=== PATIENT | male | born 1950 | race Caucasian/White ===

== ENCOUNTER 2016-09-06 13:02 | Inpatient (IN) ==
[2016-09-06] MEDS ORDERED: DUONEB (A & A) INH ONE (14:01)
[2016-09-06] MEDS ORDERED: SOLU-MEDROL IV ONE (14:03)
[2016-09-06 14:13] LABS: MANUAL DIFF NEEDED? NO
[2016-09-06 14:22] LABS: BASO% 0.4 % (0.0-0.8); EOS# 0.11 X1000 (0.0-0.7); HEMATOCRIT 45.8 % (42.0-52.0); HEMOGLOBIN 13.9 g/dL (14.0-18.0); IMM GRAN# 0.18 X1000 (0.0-0.04); IMM GRAN% 1.7 % (0.0-0.5); LYMPH# 1.94 X1000 (1.2-3.4); LYMPH% 18.3 % (20.5-51.1); MCH 28.5 PG (27-31); MCHC 30.3 g/dL (33-37); MONO# 0.74 X1000 (0.11-0.59); MPV 9.5 FL (7.4-10.4); NEUT% 71.6 % (42.2-75.2); PLT 202 X1000 (130-400); RBC 4.87 XMIL (4.7-6.1)
[2016-09-06 14:22] LABS: ALLEN TEST YES; BE 12.1 mmoll (-3.0-3.0); BLOOD TYPE ARTERIAL; DRAW SITE R RADIAL; METHB 1.1 % (0.0-1.5); O2(CT) 17.6 mL/dL (15.0-23.0); PO2(98.6) 57 mmHg (60-100); SAMPLE BLOOD; SAO2 90.7 % (95.0-100.0); THB 14.4 g/dL (11.5-17.4)
[2016-09-06 14:30] LABS: PCO2(98.6) 135 mmHg (35-45); pH(98.6) 7.15 (7.35-7.45)
[2016-09-06 14:32] LABS: MODALITY VENTIMASK
[2016-09-06 14:37] LABS: URINE SOURCE CLEAN CATCH
[2016-09-06 14:38] LABS: AGAP 7; ALBUMIN 3.6 g/dL (3.5-5.0); ALKALINE PHOSPHATASE 69 U/L (32-122); BUN 12 mg/dL (8-22); CALCIUM 8.6 mg/dL (8.8-10.2); CHLORIDE 84 mmol/L (98-107); COSMO 263; GOT 23 U/L (10-34); GPT 20 U/L (10-44); POTASSIUM 4.9 mmol/L (3.5-5.1); SODIUM 130 mmol/L (136-145); TCO2 39 mmol/L (25-35); TOTAL BILIRUBIN 0.31 mg/dL (0.20-1.00); TOTAL PROTEIN 7.4 g/dL (6.3-8.3)
[2016-09-06 14:44] LABS: BILIRUBIN URINE NEGATIVE (NEGATIVE); BLOOD URINE NEGATIVE (NEGATIVE); COLOR YELLOW; GLUCOSE URINE NEGATIVE (NEGATIVE); LEUKOCYTES URINE MODERATE (NEGATIVE); NITRITE URINE POSITIVE (NEGATIVE); PH URINE 5.5; PROTEIN URINE TRACE mg/dL (NEGATIVE); SP GRAVITY URINE 1.023; TURBIDITY URINE HAZY (CLEAR); URINE MICRO REVIEW NEEDED? YES; UROBILINOGEN URINE NORMAL (NORMAL)
[2016-09-06 14:46] LABS: UR EPITHELIAL CELLS <10 /HPF (<10); URINE BACTERIA 4+ /HPF; URINE CULTURE NEEDED? YES; URINE RBC <10 /HPF (<10)
--- NOTE | 2016-09-06 14:48 | Diag Imaging Result Document ---
PROCEDURE NAME: CHEST-1 VIEW - 09/06/2016 PORTABLE CHEST: COMPARISON: Compared to 07/09/2014. FINDINGS: The heart is enlarged. There is vascular distention. There may be small effusions with basilar atelectasis or even underlying infiltrates. IMPRESSION: Cardiomegaly with pulmonary edema likely due to congestive failure.
[2016-09-06] MEDS ORDERED: LASIX IV ONE (14:50)
--- NOTE | 2016-09-06 14:57 | PROVIDER DOCUMENTATION ---
This chart was entered by Lupe Jones Scribe, acting as scribe for Ernie Venegas MD. HPI-Respiratory General - General Chief Complaint: Shortness of Breath Stated Complaint: LOW OXYGEN Time Seen by Provider: 09/06/16 13:55 Source: patient Allergies/Adverse Reactions: Patient Allergies Allergy/AdvReac Type Severity Reaction Status Date / Time No Known Allergies Allergy Verified 09/06/16 13:33 Home Medications: Home Medication List Medication Instructions Recorded Confirmed Last Taken Type Albuterol Sulfate [Proair Hfa] 8.5 gm IH DAILY 01/22/14 09/06/16 07/09/14 09:00 History Fluticasone 50 Mcg Nasal [place] 1 spray DERICK DAILY 01/22/14 09/06/16 07/09/14 09: 00 History [Flonase] Acetaminophen [Tylenol] 650 mg PO Q4H PRN PRN #0 tablet 02/10/14 09/06/16 Unknown Rx Albuterol [Albuterol Neb] 2.5 mg INH [id number] #0 neb 02/10/14 09/06/16 Unknown Rx Benzonatate [Tessalon] 100 mg PO TID PRN PRN #0 capsule 02/10/14 09/06/16 Unknown Rx Diltiazem HCl [Cardizem Cd] 120 mg PO DAILY #0 cap.er.24h 02/10/14 09/06/1603/15 09:00 Rx Docusate Sodium [Colace] 100 mg PO BID #0 capsule 02/10/14 09/06/16 07/09/14 09: 00 Rx Folic Acid 1 mg PO BID #0 tablet 02/10/14 09/06/16 07/09/14 09:00 Rx Furosemide [Lasix] 40 mg PO DAILY #0 tablet 02/10/14 09/06/16 07/09/14 09:00 Rx Hydrocodone/APAP 7.5 mg/325 mg 1 - 2 each PO Q6-8H PRN PRN #0 02/10/14 09/06/16 Unknown Rx [[place]-7.5] tablet Iron Carbonyl/Ascorbic Acid 1 each PO BID #0 tablet 02/10/14 09/06/16 07/09/14 09:00 Rx [Icar-C] LISINOpril [Prinivil] 5 mg PO DAILY #0 tablet 02/10/14 09/06/16 07/09/14 09:00 Rx Lactobacillus Rhamnosus GG 1 each PO BID #0 capsule 02/10/14 09/06/16 07/09/14 09:00 Rx [Culturelle] Menthol/Zinc Oxide Ointment 0 gm TOP PRN PRN #0 tube 02/10/14 09/06/16 Unknown Rx [Calmoseptine Ointment] Multivit,Fe,Ca,FA & Min [Thera M 1 each PO BID #0 tablet 02/10/14 09/06/1607/09 09:00 Rx Plus] Ondansetron [Zofran] 4 mg PO Q4H PRN PRN #0 tab 02/10/14 09/06/16 Unknown Rx Pantoprazole [Protonix] 40 mg PO DAILY #0 tab 02/10/14 09/06/16 07/09/14 09:00 Rx Potassium Chloride E.r. [Klor-Con] 40 meq PO QAM #0 tablet 02/10/14 09/06/1603/15 09:00 Rx Rivaroxaban [Xarelto] 20 mg PO DAILY #30 tablet 02/10/14 09/06/16 07/09/14 09: 00 Rx Spironolactone [Aldactone] 12.5 mg PO DAILY #0 tablet 02/10/14 09/06/16 09:00 Rx Sucralfate [Carafate] 1 gm PO Q6H #0 tablet 02/10/14 09/06/16 07/09/14 08:00 Rx Chlorhexidine Gluconate [Peridex] 15 ml MM BID 07/09/14 09/06/16 07/09/14 09:00 History Multivit,Fe,Ca,FA & Min [Thera M 1 each PO BID 07/09/14 09/06/16 07/09/14 09:00 History Plus] Ropinirole HCl [Requip] 0.5 mg PO QHS 07/09/14 09/06/16 07/08/14 02:00 History Trazodone [Desyrel] 50 mg PO QHS 07/09/14 09/06/16 07/08/14 21:00 History - History of Present Illness-Resp Nature of Presenting Problem: Pt is a 66 yom who came to the ED With a cc of SOB. Pt lives at the long-term when he complained about being sob. Pt O2 sat was 82%, pt reports he does not know how much he ways. Pt reports he weighs around 350-400lbs. Pt reports the EMS gave him a breathing treatment which helped him. Quality of Pain: reports: none Severity in ED: reports: mild Onset/Duration: reports: just prior to arrival Timing: reports: still present Cough Quality/Degree: reports: no cough Associated Symptoms: reports: shortness of breath, short of breath Similar Symptoms Previously?: No Recently seen or treated by another doctor?: No Review of Systems - Adult - REVIEW OF SYSTEMS - ADULT Constitutional: denies: chills, fever Eyes: reports: no symptoms reported Ears, Nose, Mouth & Throat: reports: no symptoms reported Cardiovascular: reports: no symptoms reported Respiratory: reports: shortness of breath. denies: chronic cough, hemoptysis, pleurisy Gastrointestinal: denies: diarrhea, nausea, vomiting Genitourinary: reports: no symptoms reported Musculoskeletal: reports: no symptoms reported Integumentary: reports: no symptoms reported Neurological: reports: no symptoms reported Psychiatric: reports: no symptoms reported Endocrine: reports: no symptoms reported Hematologic/Lymphatic: reports: no symptoms reported Allergic/Immunologic: reports: no symptoms reported All Other Systems: Reviewed and Negative Past History - Adult - PAST MEDICAL HISTORY-ADULT Review of Records: reports: Nursing Assessment Review Major Childhood Illnesses: reports: denies history Cardiovascular: reports: CHF, HTN Respiratory: reports: COPD Gastrointestinal: reports: cholelithiasis, GERD, other (food bolus, esoph spasms ) Obstetrical/Gynecological: reports: denies history Genitourinary: reports: denies history Musculoskeletal: reports: arthritis Neurological: reports: denies history Endocrine/Immune: reports: Diabetes Other Conditions: reports: denies history - PRIOR SURGERIES/PROCEDURES Surgical/Procedure History: reports: appendectomy, cholecystectomy, joint replacement (TKR) - IMMUNIZATION STATUS Childhood Immunizations: See Nurse Assessment Flu Vaccine: See Nurse Assessment - FAMILY HISTORY Family History: reviewed, not pertinent Physical Exam-General - PHYSICAL EXAM-ADULT Initial Vital Signs Reviewed: Yes - CONSTITUTIONAL General Appearance: appears well, alert, obese - EYES Eyes: PERRL/EOMI, pink conjunctivae - HEAD, EARS, NOSE, MOUTH & THROAT HENMT: normocephalic/atraumatic, moist mucous membranes. negative: TM abnormal , TM obscurred by cerumen - NECK Neck: non-tender, full range of motion. negative: C-spine tenderness, lymphadenopathy - RESPIRATORY Respiratory: chest non-tender, lungs clear. negative: prolonged expiration, pain on inspiration - CARDIOVASCULAR Cardiovascular: normal peripheral pulses, regular rate, rhythm - GASTROINTESTINAL (ABDOMEN) Abdominal Exam: normal bowel sounds, non tender - MUSCULOSKELETAL Back Exam: normal inspection, no CVA tenderness Extremity: normal range of motion, non-tender - SKIN Integumentary: normal color, normal turgor - NEUROLOGIC Neurologic: grossly normal - PSYCHIATRIC Psych/Mental Status: normal mood/affect, normal thought content, normal thought process, oriented x 3 Progress - PLAN OF CARE/RESULTS Progress/Plan/Lab Results: Vital Signs - 8 hr 09/06/16 13:29 09/06/16 13:55 09/06/16 14:07 Temperature 98.1 F Pulse Rate 85 88 Respiratory Rate 20 24 Blood Pressure 124/66 O2 Sat by Pulse Oximetry 85 L 94 L 86 L Laboratory Results - last 24 hr 09/06/16 09/06/16 09/06/16 13:20 13:20 13:20 WBC 10.61 RBC 4.87 Hgb 13.9 L Hct 45.8 MCV 94.0 MCH 28.5 MCHC 30.3 L RDW Std Deviation 13.6 Plt Count 202 MPV 9.5 Immature Gran % (Auto) 1.7 H Neut % (Auto) 71.6 Lymph % (Auto) 18.3 L [place] % (Auto) 7.0 Eos % (Auto) 1.0 Baso % (Auto) 0.4 Immature Gran # (Auto) 0.18 H Neut # (Auto) 7.60 H Lymph # (Auto) 1.94 [place] # (Auto) 0.74 H Eos # (Auto) 0.11 Baso # (Auto) 0.04 D-Dimer 0.43 Specimen Type Sample Site pH pCO2 pO2 HCO3 Base Excess Oxyhemoglobin ABG O2 Sat (Calculated) ABG O2 Saturation ABG Carboxyhemoglobin ABG Methemoglobin Daniel Test A-a O2 Difference Total Hemoglobin Lactate Liter Flow Blood Gas Modality FiO2 % Sodium Potassium Chloride Carbon Dioxide Anion Gap BUN Creatinine Estimated GFR/1.73 m2 BUN/Creatinine Ratio Glucose Calculated Osmolality Calcium Total Bilirubin AST ALT Alkaline Phosphatase Troponin T < 0.010 Total Protein Albumin Globulin Albumin/Globulin Ratio Urine Source Urine Color Urine Turbidity Urine pH Ur Specific [place] Urine Protein Ur Glucose (Stick) Ur Ketones (Stick) Urine Blood Urine Nitrite Urine Bilirubin Urobilinogen Dipstick Urine Leukocytes Urine WBC (Auto) Urine RBC (Auto) U Epithel Cells (Auto) Urine Bacteria (Auto) 09/06/16 09/06/16 09/06/16 13:20 14:15 14:30 WBC RBC Hgb Hct MCV MCH MCHC RDW Std Deviation Plt Count MPV Immature Gran % (Auto) Neut % (Auto) Lymph % (Auto) [place] % (Auto) Eos % (Auto) Baso % (Auto) Immature Gran # (Auto) Neut # (Auto) Lymph # (Auto) [place] # (Auto) Eos # (Auto) Baso # (Auto) D-Dimer Specimen Type ARTERIAL Sample Site R RADIAL pH 7.15 L* pCO2 135 H* pO2 57 L HCO3 34.1 H Base Excess 12.1 H Oxyhemoglobin 86.8 L* ABG O2 Sat (Calculated) 17.6 ABG O2 Saturation 90.7 L ABG Carboxyhemoglobin 3.20 H ABG Methemoglobin 1.1 Daniel Test YES A-a O2 Difference 131.0 Total Hemoglobin 14.4 Lactate 0.60 Liter Flow 15.0 Blood Gas Modality VENTIMASK FiO2 % 50.0 Sodium 130 L Potassium 4.9 Chloride 84 L Carbon Dioxide 39 H Anion Gap 7 BUN 12 Creatinine 0.6 L Estimated GFR/1.73 m2 > 60 BUN/Creatinine Ratio 20 Glucose 149 H Calculated Osmolality 263 Calcium 8.6 L Total Bilirubin 0.31 AST 23 ALT 20 Alkaline Phosphatase 69 Troponin T Total Protein 7.4 Albumin 3.6 Globulin 3.8 Albumin/Globulin Ratio 0.9 Urine Source CLEAN CATCH Urine Color YELLOW Urine Turbidity HAZY Urine pH 5.5 Ur Specific [place] 1.023 Urine Protein TRACE A Ur Glucose (Stick) NEGATIVE Ur Ketones (Stick) NEGATIVE Urine Blood NEGATIVE Urine Nitrite POSITIVE A Urine Bilirubin NEGATIVE Urobilinogen Dipstick NORMAL Urine Leukocytes MODERATE A Urine WBC (Auto) 10-20 A Urine RBC (Auto) <10 U Epithel Cells (Auto) <10 Urine Bacteria (Auto) 4+ Orders Category Date Time Status Oxygen Therapy- ED Nursing DIRECTED Care 09/06/16 14:04 Active cxr [CHEST-1 VIEW] [RAD] Stat Exams 09/06/16 14:05 Draft ABG [RESP] Routine Lab 09/06/16 14:15 Completed BNP [PRO B-NATRIURETIC PEPTIDE] Stat Lab 09/06/16 14:49 Uncollected CBC WITH ELECTRONIC DIFF [HEME] Stat Lab 09/06/16 13:20 Completed CMP [COMPREHENSIVE METABOLIC PANEL] [CHEM] Stat Lab 09/06/16 13:20 Completed Ddimer [D-DIMER] [CHEM] Stat Lab 09/06/16 13:20 Completed LACTATE, PLASMA [CHEM] Stat Lab 09/06/16 13:20 Received TROPONIN T Stat Lab 09/06/16 13:20 Completed UA NIMS W/REFLEX CULT [URINALYSIS] Stat Lab 09/06/16 14:30 Results URINE MANUAL MICROSCOPIC [URINALYSIS] Stat Lab 09/06/16 14:30 Results Albuterol 2.5MG/Ipratrop 0.5MG [Duoneb (A & A)] Med 09/06/16 14:01 Discontinued 3 ml INH NOW ONE Furosemide [Lasix] Med 09/06/16 14:50 Discontinued 100 mg IV NOW ONE Methylprednisolone Sod Succ [Solu-Medrol] Med 09/06/16 14:03 Discontinued 125 mg IV NOW ONE Aerosol Treatments Routine Oth 09/06/16 14:02 Completed Aerosol Treatments Stat Oth 09/06/16 14:02 Completed EKG [EKG] Stat Ther 09/06/16 14:06 Ordered Result Diagrams: 09/06/16 13:20 09/06/16 13:20 - EKG 1 Time of EKG reading by physician:: 13:14 EKG Read and Signed by:: Carlos Rae Jr EKG Interpretation (*Must complete 3 of following elements*): Abnormal Rate: 89 (nonspecific intraventricular conduction delay) Rhythm: sinus rhythm w/ 1st degree AV block - CONSULTS/PCP/HOSPITALIST Notification #1 *Consult/PCP/Hospitalist*: Dr jackson Time Discussed: 14:55 (blue blo[place] discussed and full code status, no relatives , to icu) Departure - Departure Time of Disposition Decision: 14:56 DIAGNOSIS: Respiratory failure Qualifiers: Chronicity: acute Respiratory failure complication: hypoxia and hypercapnia Qualified Code(s): J96.01 - Acute respiratory failure with hypoxia; J96.02 - Acute respiratory failure with hypercapnia Disposition: ADMITTED INPATIENT 09 Certified Medical Emergency: Emergent Condition: Critical Referrals and Follow-Ups: None,PCP [Primary Care Provider] - - Critical Care Note This patient required my direct & personal management of CC.: Yes Total Time (mins): 60 Critical Care Statement: This patient required my direct personal management to treat or rule out processes, the absence of which, could potentiallly result in sudden, clinically significant life or limb threatening deterioration. This chart was documented by the indicated scribe, (Lupe Jones Scribe) and accurately reflects the services I performed and decisions made by me, Ernie Venegas MD, as attested by the provider's signature.
[2016-09-06] MEDS ORDERED: DUONEB (A & A) INH PRN (14:58)
[2016-09-06 15:03] LABS: URINE CASTS NONE SEEN
--- NOTE | 2016-09-06 15:08 | EKG Report ---
Test Performed on : 09/06/2016 1:14:24 PM Test Reason : sob Blood Pressure : / mmHG Vent. Rate : 089 BPM Atrial Rate : 089 BPM P-R Int : 220 ms QRS Dur : 122 ms QT Int : 388 ms P-R-T Axes : 041 -29 023 degrees QTc Int : 472 ms Sinus rhythm. with 1st degree AV block. Nonspecific intraventricular conduction delay Borderline ECG When compared with ECG of 04-FEB-2014 06:00, aberrant conduction. is no longer present MS interval has increased Unconfirmed Result
[2016-09-06] MEDS: LEVAQUIN 750 MG/D5W 750 MG/150 ML IVPB IV SCH (15:42)
[2016-09-06 15:47] LABS: ALLEN TEST YES; BE 14.1 mmoll (-3.0-3.0); BLOOD TYPE ARTERIAL; DRAW SITE R RADIAL; METHB 1.4 % (0.0-1.5); O2(CT) 18.7 mL/dL (15.0-23.0); PO2(98.6) 58 mmHg (60-100); SAMPLE BLOOD; SAO2 94.5 % (95.0-100.0); THB 14.8 g/dL (11.5-17.4); pH(98.6) 7.29 (7.35-7.45)
[2016-09-06 15:53] LABS: MODALITY BI PAP; PCO2(98.6) 95 mmHg (35-45)
[2016-09-06] MEDS ORDERED: LOVENOX SUBQ SCH (17:08)
[2016-09-06] MEDS ORDERED: ZOFRAN IV PRN (17:08)
--- NOTE | 2016-09-06 17:59 | HISTORY AND PHYSICAL ---
CHIEF COMPLAINT: Shortness of breath. HISTORY OF PRESENT ILLNESS: This is a 66-year-old obese male with paroxysmal atrial fibrillation who presents from home with progressive shortness of breath. Reportedly he has a [facility] resident but had saturations of 82%. He is not completely with it so it is difficult to get solid accurate data from him. He does respond to questions but then he starts deteriorating speech perez as far as complaining about somatic complaints. In any case he was profoundly hypercapnic and was placed on BiPAP, had normal white count. Chest x-ray was read as volume overload and vascular congestion but he had a significant hypercapnia which has since improved. In any case patient stabilized. He does not complain of fever, cough or chest pains. Again admitted for acute hypercapnic respiratory failure, possible volume overload issues. PAST MEDICAL HISTORY: 1. Again COPD. 2. Morbid obesity. 3. Paroxysmal atrial fibrillation. 4. Folic acid deficiency. 5. Chronic pain disorder. 6. Iron deficiency anemia. PAST SURGICAL HISTORY: He has had a cholecystectomy and he has had a TKA on the right side. SOCIAL HISTORY: No current tobacco, alcohol. ALLERGIES: No known drug allergies. MEDICATIONS: He is on Tylenol p.r.n., albuterol q.4, ProAir p.r.n., Tessalon p.r.n., Peridex p.r.n. Cardizem 120 daily, Colace 100 b.i.d., fluticasone daily, folic acid 1 b.i.d., Lasix 40 daily, [place] p.r.n., Icar-C b.i.d., Lactinex b.i.d., Prinivil 10 daily, menthol daily, multivitamin b.i.d., Zofran p.r.n., Klor-Con 40 daily, Xarelto 20 daily, Requip 0.5 at bedtime, Aldactone 12.5 daily, sucralfate 1 g q.6, trazodone 50 at bedtime. REVIEW OF SYSTEMS: Otherwise negative times a 10 point review of systems as limited as it can be from patient interview. PHYSICAL EXAMINATION: VITAL SIGNS: Blood pressure 124/66, heart rate of 88, respiratory rate 24, temperature 98.1 degrees, 86% on 4 L, about 94 on 50%. GENERALLY: Obese male in mild respiratory distress. HEENT: Normocephalic, atraumatic. Extraocular movements were intact. Nares have moist mucous membranes. CARDIOVASCULAR: Regular rate and rhythm. PULMONARY: He had decreased breath sounds at the bases. Occasional wheezing GI: Soft, nontender, nondistended. Bowel sounds are positive. EXTREMITIES: No clubbing or cyanosis. LYMPHATICS: No peripheral edema. NEUROLOGICAL: Nonfocal. LABORATORY DATA: pH 7.15, pCO2 135, PaO2 57, O2 saturation is 90% on 50%. White count 10, hemoglobin and hematocrit 13, 45, platelets 202,000. Chemistries. Sodium 130. ProBNP 386. PROBLEM LIST: A 66-year-old gentleman with concern of discomfort, patient was stable initially now has developed acute respiratory failure with congestive heart failure exacerbation. 1. Acute respiratory failure hypercapnic. We will continue BiPAP and treat accordingly. Continue duo nebs and follow clinically. will get pulmonary opinion, continue steroids, nebs, abx and pulmonary toilet, monitor in icu due to risk of needing mechanical ventilation 2. Congestive heart failure exacerbation. Continue diuretics. Check serial enzymes. Monitor on telemetry. Obtain echocardiogram and monitor. We will empirically use antibiotics just because there may be an underlying infiltrate associated with COPD exacerbation. 3. Hypertension aware. Continue medications. >30 minute critical care time, due to PPV and resp failure cc: Ja Otoole MD Pcp SAMD
[2016-09-06] MEDS: DUONEB (A & A) INH SCH ×2 (19:33→23:16)
[2016-09-06] MEDS: FOLIC ACID PO SCH (20:44)
[2016-09-06] MEDS: CULTURELLE PO SCH (20:44)
[2016-09-06] MEDS: REQUIP PO SCH (20:44)
[2016-09-06] MEDS: SOLU-MEDROL IV SCH (22:00)
[2016-09-06] MEDS ORDERED: LASIX IV SCH (23:00)
[2016-09-06] MEDS: NORCO-7.5 PO PRN (23:21)
[2016-09-07] MEDS: DUONEB (A & A) INH SCH ×7 (03:50→23:11)
[2016-09-07 04:36] LABS: ALLEN TEST YES; BE 21.3 mmoll (-3.0-3.0); BLOOD TYPE ARTERIAL; DRAW SITE R RADIAL; METHB 1.3 % (0.0-1.5); PO2(98.6) 56 mmHg (60-100); SAMPLE BLOOD; SAO2 94.4 % (95.0-100.0); THB 14.2 g/dL (11.5-17.4)
[2016-09-07 04:38] LABS: MODALITY BI PAP; PCO2(98.6) 83 mmHg (35-45)
[2016-09-07] MEDS: SOLU-MEDROL IV SCH ×3 (05:08→22:06)
--- NOTE | 2016-09-07 06:15 | Diag Imaging Result Document ---
PROCEDURE NAME: CHEST-PORTABLE - 09/07/2016 PORTABLE CHEST: COMPARISON: Compared to 09/06/2016, FINDINGS: Poor inspiratory effort. The heart remains enlarged. Vascular distention persists. Questionable infiltrate or atelectasis in the left base with a left effusion. The overall appearance is fairly similar to that of the prior exam with except of slight decreased pulmonary edema on the current study. IMPRESSION: Slight interval improvement.
[2016-09-07 06:46] LABS: MANUAL DIFF NEEDED? NO
[2016-09-07 06:48] LABS: HEMATOCRIT 45.1 % (42.0-52.0); IMM GRAN# 0.07 X1000 (0.0-0.04); LYMPH% 13.1 % (20.5-51.1); MCH 28.3 PG (27-31); MCV 91.3 FL (81-99); MONO# 0.07 X1000 (0.11-0.59); MPV 9.4 FL (7.4-10.4); NEUT% 84.9 % (42.2-75.2); PLT 215 X1000 (130-400); RBC 4.94 XMIL (4.7-6.1)
[2016-09-07 07:36] LABS: AGAP 9; BUN 14 mg/dL (8-22); CALCIUM 9.1 mg/dL (8.8-10.2); CHLORIDE 83 mmol/L (98-107); COSMO 273; MAGNESIUM 1.9 mg/dL (1.5-2.7); POTASSIUM 4.2 mmol/L (3.5-5.1); SODIUM 134 mmol/L (136-145); TCO2 42 mmol/L (25-35)
[2016-09-07] MEDS: CARDIZEM CD PO SCH (08:53)
[2016-09-07] MEDS: CULTURELLE PO SCH ×2 (08:53→22:07)
[2016-09-07] MEDS: FOLIC ACID PO SCH ×2 (08:53→22:08)
[2016-09-07] MEDS: PRINIVIL PO SCH (08:53)
--- NOTE | 2016-09-07 09:23 | CONSULTATION ---
DATE OF CONSULTATION: 09/07/2016 REFERRING PHYSICIAN: Dr. Ja Otoole. CHIEF COMPLAINT: Shortness of breath. HISTORY OF PRESENT ILLNESS: This is a 66-year-old male with a past medical history of COPD, morbid obesity, paroxysmal atrial fibrillation, folic acid deficiency, chronic pain disorder, and iron-deficiency anemia that presented to the hospital with complaint of shortness of breath. He is a resident at a long-term facility and was sent here for low oxygen saturations. Initial diagnostics reveal fluid volume overload and vascular pulmonary congestion with hypercapnic respiratory failure secondary to congestive heart failure exacerbation. He denies any fever, cough, chest pain, abdominal pain, nausea, vomiting, diarrhea. REVIEW OF SYSTEMS: A 10-point review of systems was conducted. Pertinent as known in HPI, otherwise, noncontributory. PAST MEDICAL HISTORY: As mentioned in HPI, otherwise, noncontributory. PAST SURGICAL HISTORY: Cholecystectomy and had TKA on the right side. SOCIAL HISTORY: He denies the use of tobacco, alcohol, or illicit drugs. ALLERGIES: No known drug allergies. ACTIVE MEDICATIONS: 1. Tylenol. 2. [place]. 3. DuoNeb. 4. Cardizem. 5. Lovenox. 6. Folic acid. 7. Lasix. 8. Culturelle. 9. Levaquin. 10. Prinivil. 11. Solu-Medrol. 12. Zofran. Requip. PHYSICAL EXAMINATION: Vital Signs: Temperature 98.9 degrees, heart rate 78, respiratory rate 27, blood pressure 123/69, oxygen saturation 94%. General: Sitting up in bed, wearing a Ventimask currently. No acute distress noted. HEENT: Normocephalic and atraumatic. PERRL. Cardiovascular: Irregular rate. S1-S2 present. Respiratory: Even and unlabored. Reduced entry. Abdomen: Soft, nontender, nondistended. Bowel sounds present in all quadrants. Extremities: +1 pedal edema noted. Neurologic: Alert and oriented x3. LABORATORY INVESTIGATIONS: WBC 6.85. RBCs 4.94. Hemoglobin 14. Hematocrit 45.1, platelet count 215. Sodium 134, potassium 4.2, chloride 83, anion gap 9. BUN 14, creatinine 0.7, glucose 180. Blood gas reveals a pH of 7.4, pCO2 of 83, PO2 of 56, HCO3 of 41.3. Oxygen saturation 94.4%. Chest x-ray performed on 09/07/2016 shows slight interval improvement. ASSESSMENT AND PLAN: This is a 66-year-old male with a past medical history mentioned in the history of present illness. He presented to the hospital with complaints of shortness of breath secondary to hypercapnic respiratory failure due to COPD, DOMINIK and congestive heart failure exacerbation. He has been wearing BiPAP but states that he is ready to go home because he does not like wearing the mask. He is currently wearing Ventimask. Continue diuretics, serial enzymes, telemetry. He will obtain an echocardiogram and continue inhaled bronchodilators, IV steroids , antibiotics, and DVT prophylaxis. Further recommendations pending diagnostic studies. Thank for the courtesy of this consult. Dictated by SHAE Jovel for Micha Landa MD cc: SHAE Jvoel MD MTDD
--- NOTE | 2016-09-07 11:36 | CONSULTATION ---
DATE OF CONSULTATION: 09/07/2016 REASON FOR CONSULTATION: Cardiology was consulted for shortness of breath, questionable heart failure. HISTORY OF PRESENT ILLNESS: He is a 66-year-old, gentleman with a history of morbid obesity, paroxysmal atrial fibrillation, pulmonary embolism in the past. He is in the [facility]. He is a long-term resident there. Saturations of 82%. Was brought to the hospital with increasing shortness of breath. He denies chest pain. He has also had some cough. Chest x- ray shows pulmonary congestion. He does not complain of fevers, coughs. Denies chest pain. PAST MEDICAL HISTORY: Morbid obesity, chronic pain syndrome, iron deficiency anemia, paroxysmal atrial fibrillation, pulmonary embolism in the past, history of DVT in the past. He has had cholecystectomy. He has had knee surgery on the right side. Gastroesophageal reflux disease, COPD, paroxysmal atrial fibrillation. HOME MEDICATIONS: Tessalon [place], albuterol inhalers, Cardizem 120, Colace, fludrocortisone, Lasix 40 daily, [place] p.r.n., Icar, Lactinex, Prinivil 10, Zofran, Klor-Con, Xarelto 20, Aldactone 12.5, sucralfate. HOSPITAL MEDICATIONS: In the hospital, he was given Lasix 100 IV intravenously and 160 total last night. PHYSICAL EXAMINATION: Vital Signs: Blood pressure was 121/76. Neck: Jugular venous pressure was normal. Cardiovascular: First and second heart sounds were heard. There is no S3 gallop. Respiratory System: Distant breath sounds with scattered wheeze. Abdomen: Was obese, soft, nontender. There was no guarding or rigidity. Bowel sounds were heard. Central Nervous System: Alert and was moving all 4 extremities. Extremities: Examination of extremities revealed trace pedal edema. DIAGNOSTIC DATA: Sodium 134, potassium 4.2, BUN 14, creatinine 0.7. ProBNP 386. Cardiac enzymes negative. Hemoglobin 14, hematocrit 45, platelet count of 215,000. D-dimer 0.43. ASSESSMENT AND PLAN: 1. Mr. Orlando Velez is a 66-year-old, gentleman who has paroxysmal atrial fibrillation, pulmonary embolism in the past, chronic obstructive pulmonary disease, and morbid obesity. He has pickwickian syndrome as well. However, this has not been evaluated with sleep studies. From a cardiac standpoint, symptomatically his shortness of breath has improved. He denies chest pain. We will decrease his Lasix to 40 mg intravenous twice daily. 2. We will get an echocardiogram to reassess cardiac and valvular function. 3. We will get a CT scan of his chest with contrast. It is difficult to say, as he has morbid obesity, whether he has heart failure and/or associated pneumonic process given his cough. We will plan for the CT scan with contrast. 4. He is on Xarelto given his deep venous thrombosis and pulmonary embolism in the past. I have not made any other changes. 5. Hypertension, stable. Continue with his medications. Thank you for the consult. We will follow hospital course. cc: Fermin Russell MD
[2016-09-07] MEDS: LASIX IV SCH (11:55)
--- NOTE | 2016-09-07 13:26 | Diag Imaging Result Document ---
PROCEDURE NAME: THORAX W/WO CONTRAST - 09/07/2016 CT CHEST WITHOUT AND WITH INTRAVENOUS CONTRAST: A CT dose reduction protocol was used. COMPARISON: Chest x-ray earlier 09/07/2016. FINDINGS: On the noncontrast exam, there are no abnormal calcifications. On the contrast-enhanced exam, there is significant cardiomegaly. There is some mild patchy atelectasis or infiltrate in both lower lobes. No adenopathy. Pulmonary vessels are distended but there is no significant edema. There is heterogeneous enhancement of the liver, nonspecific. The left and central divisions are significantly under enhanced compared to the right lobe. The portal vein and major hepatic veins are all patent. There is significant distention of the colon with gas and fluid. This measures over 11 cm. Advanced degenerative changes of the spine. There is a left lateral 10th rib fracture that is subacute with some new bone formation. IMPRESSION: 1. Small bilateral lower lobe infiltrate suggesting pneumonia or atelectasis. 2. Cardiomegaly and mild pulmonary vascular congestion. 3. Distention of the colon with gas and fluid. Correlate for possible toxic megacolon. 4. Left-sided rib fracture. [facility]
[2016-09-07] MEDS ORDERED: DEFINITY ONE (14:09)
[2016-09-07] MEDS: NORCO-7.5 PO PRN (14:45)
[2016-09-07] MEDS ORDERED: VANCOMYCIN IV PER PHARMACY MISC SCH (14:45)
[2016-09-07] MEDS: LEVAQUIN 750 MG/D5W 750 MG/150 ML IVPB IV SCH (15:56)
[2016-09-07] MEDS: XARELTO PO SCH (17:09)
[2016-09-07] MEDS: VANCOMYCIN 2 GM in NS 500 ML IV SCH (18:39)
--- NOTE | 2016-09-07 19:58 | ECHO REPORT ---
ORDER DATE: 09/07/2016 INTERPRETING PHYSICIAN: Dr. Cervantes REQUESTING PHYSICIAN: CLINICAL INDICATIONS: A 66-year-old male with dyspnea, CHF, atrial fibrillation. M-MODE MEASUREMENTS: Right ventricle: 4.0 cm. Left ventricle end diastole: 7.0 cm. Left ventricle end systole: 4.9 cm. Posterior wall: 1.3 cm. Interventricular septum: 1.3 cm. Left atrium: 5.4 cm. Aortic root: 4.2 cm. SUMMARY OF 2-DIMENSIONAL IMAGING: This study is technically very difficult. The left ventricular systolic function is probably at the lower limits of normal, estimated roughly at 50-55%. No definite wall motion abnormality is noted. In order to enhance the visualization of the durbin, intravenous Definity was administered per protocol. No definite wall motion abnormality was noted. The right ventricle is moderately to significantly enlarged with good function. The aortic valve is grossly normal. Color flow mapping of this valve is unremarkable. The mitral valve also appears to be grossly normal. There is some calcification of the annulus. Color flow mapping shows trace regurgitation. Pulse wave Doppler of mitral inflow shows mild reversal of the E and the A wave. Tissue Doppler of septal and lateral mitral annulus averages 7 cm per second. There is no definite diastolic dysfunction. The tricuspid valve shows a mild degree of regurgitation. Pulmonary pressure is somewhere in the range of 39-44 mmHg. The pulmonic valve is grossly normal. Color flow mapping unremarkable. Pulmonary venous flow also appeared to be normal with predominance of the systolic component. There is no pericardial effusion, masses or thrombus. Prominent epicardial fat pad is noted. IMPRESSION: In summary, this echocardiographic study, which was performed with the addition of intravenous Definity, shows: 1. Globally preserved ejection fraction at the lower limits of normal, estimated at 50-55%. 2. No evidence of any significant valvular abnormalities. 3. Significant enlargement of the chambers, the left and the right ventricles. 4. No diastolic dysfunction. 5. Pulmonary pressure somewhere in the range of 39-44 mmHg. 6. This study was very difficult. The patient weighs 389 pounds. cc: MD Lidia Leach PA
[2016-09-07] MEDS: REQUIP PO SCH (22:07)
[2016-09-07] MEDS: ATIVAN IV PRN (23:33)
[2016-09-08] MEDS: LASIX IV SCH ×3 (00:49→23:23)
[2016-09-08] MEDS: DUONEB (A & A) INH SCH ×6 (03:29→23:19)
[2016-09-08 04:54] LABS: ALLEN TEST YES; BE 18.5 mmoll (-3.0-3.0); BLOOD TYPE ARTERIAL; DRAW SITE R RADIAL; METHB 1.3 % (0.0-1.5); O2(CT) 22.1 mL/dL (15.0-23.0); PCO2(98.6) 68 mmHg (35-45); PO2(98.6) 80 mmHg (60-100); SAMPLE BLOOD; SAO2 97.9 % (95.0-100.0); THB 16.6 g/dL (11.5-17.4); pH(98.6) 7.45 (7.35-7.45)
[2016-09-08 04:55] LABS: MODALITY BI PAP
[2016-09-08] MEDS: VANCOMYCIN 2 GM in NS 500 ML IV SCH ×2 (05:41→18:05)
[2016-09-08] MEDS: SOLU-MEDROL IV SCH ×2 (05:42→18:05)
[2016-09-08 06:12] LABS: AGAP 15; BUN 22 mg/dL (8-22); CHLORIDE 84 mmol/L (98-107); COSMO 274; POTASSIUM 4.1 mmol/L (3.5-5.1); SODIUM 133 mmol/L (136-145); TCO2 34 mmol/L (25-35)
--- NOTE | 2016-09-08 07:47 | Diag Imaging Result Document ---
PROCEDURE NAME: CHEST-PORTABLE - 09/08/2016 PORTABLE CHEST X-RAY: COMPARISON: 09/07/2016. FINDINGS: Stable cardiomegaly and pulmonary vascular congestion. There is improvement in the difficult to perceive medial basilar infiltrates bilaterally. IMPRESSION: Improvement in the bilateral lower lobe infiltrates. [facility]
[2016-09-08 08:57] LABS: HEMATOCRIT 44.5 % (42.0-52.0); HEMOGLOBIN 13.9 g/dL (14.0-18.0); MCH 28.1 PG (27-31); MCHC 31.2 g/dL (33-37); MCV 90.1 FL (81-99); MPV 9.7 FL (7.4-10.4); RBC 4.94 XMIL (4.7-6.1)
[2016-09-08] MEDS: FOLIC ACID PO SCH ×2 (09:27→20:55)
[2016-09-08] MEDS: MIRALAX PO SCH (09:27)
[2016-09-08] MEDS: CULTURELLE PO SCH ×2 (09:27→20:55)
[2016-09-08] MEDS: LACTULOSE PO SCH ×2 (09:27→20:55)
[2016-09-08] MEDS: CARDIZEM CD PO SCH (09:27)
[2016-09-08] MEDS: PRINIVIL PO SCH (09:27)
[2016-09-08] MEDS ORDERED: FLEET ENEMA PR ONE (10:12)
[2016-09-08] MEDS: ALDACTONE PO SCH (11:02)
[2016-09-08] MEDS: SODIUM CHLORIDE 0.9% INJ SCH (11:03)
[2016-09-08] MEDS: PROTONIX IV SCH (11:03)
--- NOTE | 2016-09-08 13:11 | Diag Imaging Result Document ---
PROCEDURE NAME: KUB ABDOMEN - 09/08/2016 X-RAY ABDOMEN: COMPARISON: 07/09/2014, 09/07/2016. FINDINGS: The transverse colon is distended with gas. The stomach is also probably somewhat distended. The transverse colon measures about 8 cm. No definite small bowel obstruction or free air. IMPRESSION: Nonspecific gas distention of the stomach and transverse colon.
[2016-09-08] MEDS: LEVAQUIN 750 MG/D5W 750 MG/150 ML IVPB IV SCH (15:30)
[2016-09-08] MEDS: XARELTO PO SCH (17:01)
[2016-09-08] MEDS: ATIVAN IV PRN (20:54)
[2016-09-08] MEDS: DESYREL PO SCH (20:55)
[2016-09-08] MEDS: REQUIP PO SCH (20:55)
[2016-09-08] MEDS: ICAR-C PO SCH (20:55)
[2016-09-08] MEDS: THERA M PLUS PO SCH (20:55)
[2016-09-08] MEDS: NORCO-7.5 PO PRN (20:56)
[2016-09-09] MEDS: ATIVAN IV PRN (01:34)
[2016-09-09] MEDS: DUONEB (A & A) INH SCH ×6 (04:02→22:30)
[2016-09-09 04:59] LABS: HEMATOCRIT 42.6 % (42.0-52.0); HEMOGLOBIN 13.4 g/dL (14.0-18.0); MCH 28.8 PG (27-31); MCHC 31.5 g/dL (33-37); MCV 91.4 FL (81-99); MPV 9.5 FL (7.4-10.4); RBC 4.66 XMIL (4.7-6.1)
[2016-09-09 05:00] LABS: ALLEN TEST YES; BE 17.9 mmoll (-3.0-3.0); BLOOD TYPE ARTERIAL; DRAW SITE R RADIAL; METHB 1.3 % (0.0-1.5); O2(CT) 18.6 mL/dL (15.0-23.0); PO2(98.6) 62 mmHg (60-100); SAMPLE BLOOD; SAO2 94.3 % (95.0-100.0); THB 14.6 g/dL (11.5-17.4); pH(98.6) 7.38 (7.35-7.45)
[2016-09-09 05:01] LABS: MODALITY BI PAP
[2016-09-09 05:02] LABS: PCO2(98.6) 81 mmHg (35-45)
[2016-09-09 05:23] LABS: AGAP 7; BUN 24 mg/dL (8-22); CALCIUM 8.5 mg/dL (8.8-10.2); CHLORIDE 88 mmol/L (98-107); COSMO 282; POTASSIUM 3.5 mmol/L (3.5-5.1); SODIUM 137 mmol/L (136-145); TCO2 42 mmol/L (25-35)
[2016-09-09] MEDS: SOLU-MEDROL IV SCH ×2 (06:14→17:47)
[2016-09-09] MEDS: VANCOMYCIN 2 GM in NS 500 ML IV SCH ×2 (06:14→20:14)
[2016-09-09] MEDS: CULTURELLE PO SCH ×2 (08:12→21:52)
[2016-09-09] MEDS: CARDIZEM CD PO SCH (08:12)
[2016-09-09] MEDS: ALDACTONE PO SCH (08:12)
[2016-09-09] MEDS: MIRALAX PO SCH ×2 (08:12→22:01)
[2016-09-09] MEDS: THERA M PLUS PO SCH ×2 (08:12→21:53)
[2016-09-09] MEDS: ICAR-C PO SCH ×2 (08:13→21:52)
[2016-09-09] MEDS: FOLIC ACID PO SCH ×2 (08:13→21:53)
[2016-09-09] MEDS: PRINIVIL PO SCH (08:13)
[2016-09-09] MEDS: LACTULOSE PO SCH ×2 (08:13→21:53)
--- NOTE | 2016-09-09 08:19 | Diag Imaging Result Document ---
PROCEDURE NAME: CHEST-PORTABLE - 09/09/2016 AP PORTABLE CHEST ERECT AT 0600 HOURS: FINDINGS: There is atelectasis over the right base which is worse than on 09/08/2016. The inspiration is slightly worsen as well which may account for this. The left ventricle appears to be enlarged. IMPRESSION: Subsegmental atelectasis.
[2016-09-09] MEDS: PROTONIX IV SCH (11:42)
[2016-09-09] MEDS: LASIX IV SCH ×2 (11:43→22:17)
[2016-09-09] MEDS: ROCEPHIN 1 GM/NS 1 GM/50 ML IVPB IV SCH (14:44)
[2016-09-09] MEDS: LEVAQUIN 750 MG/D5W 750 MG/150 ML IVPB IV SCH (16:44)
[2016-09-09] MEDS: XARELTO PO SCH (16:45)
[2016-09-09] MEDS: DESYREL PO SCH (21:52)
[2016-09-09] MEDS: REQUIP PO SCH (21:52)
[2016-09-09] MEDS: TYLENOL PO PRN (23:16)
[2016-09-10] MEDS: ATIVAN IV PRN ×2 (02:01→21:54)
[2016-09-10] MEDS: DUONEB (A & A) INH SCH ×6 (03:48→22:29)
[2016-09-10] MEDS: SOLU-MEDROL IV SCH ×2 (06:00→17:14)
[2016-09-10 07:54] LABS: AGAP 11; BUN 28 mg/dL (8-22); CHLORIDE 88 mmol/L (98-107); COSMO 287; POTASSIUM 3.3 mmol/L (3.5-5.1); SODIUM 139 mmol/L (136-145); TCO2 40 mmol/L (25-35)
[2016-09-10 08:36] LABS: HEMOGLOBIN 14.8 g/dL (14.0-18.0); MCH 28.2 PG (27-31); MCHC 30.8 g/dL (33-37); MCV 91.6 FL (81-99); MPV 10.1 FL (7.4-10.4); RBC 5.24 XMIL (4.7-6.1)
[2016-09-10] MEDS: CARDIZEM CD PO SCH (11:05)
[2016-09-10] MEDS: PRINIVIL PO SCH (11:05)
[2016-09-10] MEDS: FOLIC ACID PO SCH ×2 (11:05→21:54)
[2016-09-10] MEDS: MIRALAX PO SCH ×2 (11:05→21:54)
[2016-09-10] MEDS: CULTURELLE PO SCH ×2 (11:05→21:53)
[2016-09-10] MEDS: LACTULOSE PO SCH ×2 (11:05→21:54)
[2016-09-10] MEDS: THERA M PLUS PO SCH ×2 (11:05→21:53)
[2016-09-10] MEDS: ALDACTONE PO SCH (11:05)
[2016-09-10] MEDS: ICAR-C PO SCH ×2 (11:05→21:53)
[2016-09-10] MEDS: SODIUM CHLORIDE 0.9% INJ SCH (11:08)
[2016-09-10] MEDS: PROTONIX IV SCH (11:08)
[2016-09-10] MEDS: LASIX IV SCH (11:08)
[2016-09-10] MEDS ORDERED: KLOR-CON PO ONE (14:05)
[2016-09-10] MEDS ORDERED: FLEET ENEMA PR ONE (14:25)
--- NOTE | 2016-09-10 14:41 | PROGRESS NOTE ---
DATE: 09/10/2016 SUBJECTIVE: Patient has no focal complaints. Still requiring high-flow O2. OBJECTIVE: Blood pressure 143/76, heart rate of 80, respiratory rate of 25, temperature 98 degrees, 92% on 50%.Cardiovascular: Regular rate and rhythm. Pulmonary: Bilateral breath sounds. Clear to auscultation. GI: Soft, nontender, nondistended. Bowel sounds are positive. LABORATORY DATA: White count 7, hemoglobin and hematocrit 14 and 48. No blood gas this morning. Potassium 3.3, bicarb of 40. PROBLEM LIST: 1. Acute hypercapnic respiratory failure secondary to obesity hypoventilation. We will continue BiPAP as tolerated. I think we weaned his steroids down. He is still requiring a lot of oxygen and I just do not know how easily we are going to be able to fix that problem. In any case, patient is doing okay. We will continue treatment and follow. 2. Chronic obstructive pulmonary disease exacerbation. He is on antibiotics and breathing treatments. I tried to order some IPPB but it looks like we are still doing I think everything we can to try to get his breathing issues better. 3. Atrial fibrillation appears to be rate controlled. He is being anticoagulated. 4. Ileus. His abdomen is much more distended today. I think he has got a very kind of hypomotility syndrome related to his bowels. I am going to give him a couple enemas, repeat his plain films. He is on a bowel regimen. We will continue treatment and follow. I think abdominal distention unfortunately is not helping respiratory status just from shear compression of his abdomen on his upper airway which is already somewhat limited. So, we will continue to follow. cc: Ja Otoole MD
[2016-09-10] MEDS: MUCOMYST 20% INH SCH ×2 (14:59→20:20)
[2016-09-10] MEDS: ROCEPHIN 1 GM/NS 1 GM/50 ML IVPB IV SCH (16:59)
[2016-09-10] MEDS: XARELTO PO SCH (17:03)
[2016-09-10] MEDS: SENOKOT PO SCH (17:14)
[2016-09-10] MEDS: LEVAQUIN 750 MG/D5W 750 MG/150 ML IVPB IV SCH (17:14)
[2016-09-10] MEDS: REQUIP PO SCH (21:53)
[2016-09-10] MEDS: DESYREL PO SCH (21:54)
[2016-09-11] MEDS: DUONEB (A & A) INH SCH ×6 (03:32→23:19)
[2016-09-11 04:23] LABS: ALLEN TEST YES; BE 20.7 mmoll (-3.0-3.0); BLOOD TYPE ARTERIAL; DRAW SITE R RADIAL; METHB 1.4 % (0.0-1.5); O2(CT) 19.5 mL/dL (15.0-23.0); PO2(98.6) 60 mmHg (60-100); SAMPLE BLOOD; SAO2 95.2 % (95.0-100.0); THB 15.3 g/dL (11.5-17.4); pH(98.6) 7.42 (7.35-7.45)
[2016-09-11 04:25] LABS: MODALITY BI PAP; PCO2(98.6) 78 mmHg (35-45)
[2016-09-11] MEDS: SOLU-MEDROL IV SCH (05:15)
[2016-09-11 06:39] LABS: HEMATOCRIT 47.6 % (42.0-52.0); HEMOGLOBIN 14.4 g/dL (14.0-18.0); MCHC 30.3 g/dL (33-37); MCV 92.6 FL (81-99); MPV 9.6 FL (7.4-10.4); RBC 5.14 XMIL (4.7-6.1)
[2016-09-11 06:55] LABS: AGAP 9; BUN 30 mg/dL (8-22); CALCIUM 9.3 mg/dL (8.8-10.2); CHLORIDE 85 mmol/L (98-107); COSMO 279; POTASSIUM 3.9 mmol/L (3.5-5.1); SODIUM 134 mmol/L (136-145); TCO2 40 mmol/L (25-35)
[2016-09-11] MEDS: MUCOMYST 20% INH SCH ×2 (07:15→20:02)
[2016-09-11] MEDS: MIRALAX PO SCH ×2 (09:59→21:52)
[2016-09-11] MEDS: ALDACTONE PO SCH (10:01)
[2016-09-11] MEDS: LACTULOSE PO SCH ×2 (10:01→21:52)
[2016-09-11] MEDS: SENOKOT PO SCH (10:02)
[2016-09-11] MEDS: ICAR-C PO SCH ×2 (10:02→21:52)
[2016-09-11] MEDS: CULTURELLE PO SCH ×2 (10:02→21:52)
[2016-09-11] MEDS: LASIX IV SCH (10:03)
[2016-09-11] MEDS: CARDIZEM CD PO SCH (10:03)
[2016-09-11] MEDS: PRINIVIL PO SCH (10:03)
[2016-09-11] MEDS: FOLIC ACID PO SCH ×2 (10:03→21:53)
[2016-09-11] MEDS: THERA M PLUS PO SCH ×2 (10:03→21:53)
[2016-09-11] MEDS: ROCEPHIN 1 GM/NS 1 GM/50 ML IVPB IV SCH (12:58)
[2016-09-11] MEDS: PROTONIX IV SCH (12:58)
[2016-09-11] MEDS: SODIUM CHLORIDE 0.9% INJ SCH (12:58)
[2016-09-11] MEDS: LEVAQUIN 750 MG/D5W 750 MG/150 ML IVPB IV SCH (14:56)
[2016-09-11] MEDS: XARELTO PO SCH (16:34)
--- NOTE | 2016-09-11 17:16 | Diag Imaging Result Document ---
PROCEDURE NAME: CHEST-1 VIEW - 09/11/2016 ONE-VIEW CHEST: COMPARISON: 09/10/2016. FINDINGS: There is stable cardiomegaly. There is subsegmental atelectasis at the right base similar to the previous exam. The remainder of the lungs appear essentially clear. There is no substantial pleural effusion or pneumothorax identified. IMPRESSION: Stable cardiomegaly. Mild atelectasis at right base.
--- NOTE | 2016-09-11 17:16 | Diag Imaging Result Document ---
PROCEDURE NAME: ABDOMEN FLAT/UPRIGHT - 09/11/2016 SUPINE UPRIGHT ABDOMEN: COMPARISON: 09/08/2016. FINDINGS: There is substantial gaseous distention of the transverse colon again seen. There is possibly increased gaseous distention of the hepatic flexure region of the colon compared to previous exam. There is questionable gaseous distention of the stomach again seen, this is difficult to definitively distinguish from the transverse colon distention. IMPRESSION: Persistent gaseous distention of the transverse colon and questionably of stomach. Compared to the previous examination, there is apparent increased gaseous distention of the hepatic flexure region of the colon. [facility]
--- NOTE | 2016-09-11 17:22 | PROGRESS NOTE ---
DATE: 09/11/2016 SUBJECTIVE: Patient has no focal complaints. OBJECTIVE: Vital signs: Blood pressure 121/93, heart rate 108, respiratory rate 20, temperature 97.5 degrees. Cardiovascular: Regular rate and rhythm. Pulmonary: Bilateral breath sounds. Clear to auscultation. GI: Soft, nontender, nondistended. Bowel sounds are positive. LABORATORY DATA: White count is up to 15, hemoglobin and hematocrit are 14 and 47, platelets 185,000. PCO2 78 but pH is normal, PaO2 of 60. BUN and creatinine of 30 and 0.8. PROBLEM LIST: 1. Acute hypercapnic respiratory failure secondary to obesity hypoventilation. Continue BiPAP. Wean steroids as tolerated. He is still on high-flow oxygen. I am going to try to just put him down to 6 L and see how he does. Pulmonary is following. 2. Chronic obstructive pulmonary disease exacerbation. Continue antibiotics, breathing treatments, steroids. 3. Atrial fibrillation. Appears to be stable. Continue anticoagulation. 4. Ileus. He is on a bowel regimen but he is having bowel movements. Keep him on some regular medications from that standpoint. 5. Disposition. Once he is on nasal cannula and stable I think he could go back to the facility. We will continue to monitor. cc: Ja Otoole MD
[2016-09-11] MEDS: DESYREL PO SCH (21:52)
[2016-09-11] MEDS: REQUIP PO SCH (21:52)
[2016-09-12] MEDS: DUONEB (A & A) INH SCH ×6 (02:10→23:13)
[2016-09-12 07:14] LABS: HEMATOCRIT 45.5 % (42.0-52.0); HEMOGLOBIN 14.1 g/dL (14.0-18.0); MCH 28.4 PG (27-31); MCV 91.7 FL (81-99); MPV 9.8 FL (7.4-10.4); RBC 4.96 XMIL (4.7-6.1)
[2016-09-12 07:27] LABS: AGAP 7; BUN 31 mg/dL (8-22); CALCIUM 8.7 mg/dL (8.8-10.2); CHLORIDE 85 mmol/L (98-107); COSMO 272; POTASSIUM 3.8 mmol/L (3.5-5.1); SODIUM 131 mmol/L (136-145); TCO2 39 mmol/L (25-35)
--- NOTE | 2016-09-12 07:28 | Diag Imaging Result Document ---
PROCEDURE NAME: CHEST-PORTABLE - 09/10/2016 PORTABLE CHEST: COMPARISON: 09/09/2016. FINDINGS: Poor inspiratory effort. The heart is enlarged. There is central vascular distention. There may be tiny pleural effusions. The overall appearance is similar to that of the prior exam. IMPRESSION: Stable chest.
[2016-09-12 08:20] LABS: ALLEN TEST YES; BE 18.5 mmoll (-3.0-3.0); BLOOD TYPE ARTERIAL; DRAW SITE R RADIAL; METHB 1.7 % (0.0-1.5); PO2(98.6) 62 mmHg (60-100); SAMPLE BLOOD; SAO2 93.7 % (95.0-100.0); THB 15.1 g/dL (11.5-17.4)
[2016-09-12 08:25] LABS: MODALITY CANNULA; PCO2(98.6) 78 mmHg (35-45)
[2016-09-12] MEDS: MIRALAX PO SCH ×2 (09:06→20:58)
[2016-09-12] MEDS: LASIX IV SCH (09:07)
[2016-09-12] MEDS: CARDIZEM CD PO SCH (09:08)
[2016-09-12] MEDS: FOLIC ACID PO SCH ×2 (09:08→20:58)
[2016-09-12] MEDS: SOLU-MEDROL IV SCH (09:08)
[2016-09-12] MEDS: LACTULOSE PO SCH ×2 (09:08→20:58)
[2016-09-12] MEDS: SENOKOT PO SCH (09:09)
[2016-09-12] MEDS: ICAR-C PO SCH ×2 (09:09→20:57)
[2016-09-12] MEDS: CULTURELLE PO SCH ×2 (09:09→20:58)
[2016-09-12] MEDS: ALDACTONE PO SCH (09:09)
[2016-09-12] MEDS: THERA M PLUS PO SCH ×2 (09:09→20:58)
[2016-09-12] MEDS: PRINIVIL PO SCH (09:10)
[2016-09-12] MEDS: MUCOMYST 20% INH SCH ×2 (09:57→19:48)
[2016-09-12] MEDS: SODIUM CHLORIDE 0.9% INJ SCH (12:09)
[2016-09-12] MEDS: PROTONIX IV SCH (12:09)
[2016-09-12] MEDS: ROCEPHIN 1 GM/NS 1 GM/50 ML IVPB IV SCH (12:10)
[2016-09-12] MEDS ORDERED: NS 250 ML ONE (12:14)
[2016-09-12] MEDS: LEVAQUIN 750 MG/D5W 750 MG/150 ML IVPB IV SCH (15:06)
[2016-09-12] MEDS: XARELTO PO SCH (16:26)
--- NOTE | 2016-09-12 19:26 | PROGRESS NOTE ---
DATE: 09/12/2016 SUBJECTIVE: 1. He came in with shortness of breath. A 66-year-old, obese male with paroxysmal atrial fibrillation presented from home with progressive shortness of breath, reportedly a long-term resident. He has saturations of 82%. He is difficult to get a lot of data from and a report. Past medical history is of COPD, morbid obesity, paroxysmal atrial fibrillation, folic acid deficiency, chronic pain disorder, iron deficiency. He was admitted with acute respiratory failure, hypercapnia. Continued BiPAP and treated accordingly. He is on antibiotics. Continue pulmonary toilet. His respiratory status has improved greatly. Looking for placement. 2. Congestive heart failure. He was put on some diuretics, that has improved as well. His blood pressure has continued to be followed. 3. Chest x-ray from 09/11/2016. Stable cardiomegaly, mild atelectasis in the right base. OBJECTIVE: General: On examination today, awake and alert, and comfortable. He thinks he is stronger and doing better. Vital signs: Temperature 98.7 degrees, pulse 92, respirations 20, blood pressure 127/78. Pupils: Equal, round. Lungs: Clear in all lung govea anterolateral. Cardiovascular: Regular rate without murmur, S3. Abdomen: Soft. Skin: Warm and dry. BLOOD SUGAR: 200/137/241. ASSESSMENT AND PLAN: 1. Acute hypercapnic respiratory failure secondary to obesity, hypoventilation. On BiPAP as needed. He is doing much better. He has high-flow oxygen which they have been able to wean down. He is breathing much better. 2. Chronic obstructive pulmonary disease exacerbation. This is improved. Continue present regimen of bronchodilators and steroids with tapering. 3. Atrial fibrillation. Continue anticoagulation. Rate is controlled. 4. Ileus. This is improved. We talked to Dr. Wu and she is signing out from her standpoint. He can probably go home. We are hoping to get him I think to rehabilitation and continue physical therapy. 5. Disposition. On nasal cannula. We reviewed orders. 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 I do not see any change in the current medications. cc: Daniel George MD
[2016-09-12] MEDS: DESYREL PO SCH (20:57)
[2016-09-12] MEDS: REQUIP PO SCH (20:58)
[2016-09-12] MEDS: NORCO-7.5 PO PRN (21:01)
[2016-09-13] MEDS: DUONEB (A & A) INH SCH ×6 (03:28→23:20)
[2016-09-13 03:53] LABS: ALLEN TEST YES; BE 21.1 mmoll (-3.0-3.0); BLOOD TYPE ARTERIAL; DRAW SITE R RADIAL; O2(CT) 19.1 mL/dL (15.0-23.0); PO2(98.6) 77 mmHg (60-100); SAMPLE BLOOD; SAO2 97.1 % (95.0-100.0); THB 14.5 g/dL (11.5-17.4); pH(98.6) 7.43 (7.35-7.45)
[2016-09-13 03:54] LABS: MODALITY BI PAP; PCO2(98.6) 76 mmHg (35-45)
[2016-09-13] MEDS: MUCOMYST 20% INH SCH ×2 (07:24→19:37)
--- NOTE | 2016-09-13 08:33 | Diag Imaging Result Doc PS360 ---
CHEST-PORTABLE - 09/13/2016 INDICATION: Shortness of breath COMPARISON: 09/12/2016 FINDINGS: Stable critically low lung volumes. Stable mild cardiomegaly. No substantial infiltrates. IMPRESSION: No change from prior. Electronically signed by Guanakito Ovalle 09/13/2016 8:30 AM
[2016-09-13] MEDS: SODIUM CHLORIDE 0.9% INJ SCH (09:16)
[2016-09-13] MEDS: PROTONIX IV SCH ×2 (09:16→11:14)
[2016-09-13] MEDS: SOLU-MEDROL IV SCH (09:17)
[2016-09-13] MEDS: LACTULOSE PO SCH ×2 (09:17→21:37)
[2016-09-13] MEDS: ALDACTONE PO SCH (09:17)
[2016-09-13] MEDS: ICAR-C PO SCH ×2 (09:17→21:35)
[2016-09-13] MEDS: LASIX IV SCH (09:17)
[2016-09-13] MEDS: THERA M PLUS PO SCH ×2 (09:18→21:35)
[2016-09-13] MEDS: CULTURELLE PO SCH ×2 (09:18→21:35)
[2016-09-13] MEDS: PRINIVIL PO SCH (09:18)
[2016-09-13] MEDS: SENOKOT PO SCH (09:18)
[2016-09-13] MEDS: CARDIZEM CD PO SCH (09:19)
[2016-09-13] MEDS: MIRALAX PO SCH ×2 (09:19→21:37)
[2016-09-13] MEDS: FOLIC ACID PO SCH ×2 (09:19→21:35)
[2016-09-13] MEDS: ROCEPHIN 1 GM/NS 1 GM/50 ML IVPB IV SCH (12:53)
[2016-09-13] MEDS: LEVAQUIN 750 MG/D5W 750 MG/150 ML IVPB IV SCH (15:25)
[2016-09-13] MEDS: TYLENOL PO PRN (15:54)
[2016-09-13] MEDS: XARELTO PO SCH (16:35)
--- NOTE | 2016-09-13 18:00 | PROGRESS NOTE ---
DATE: 09/13/2016 SUBJECTIVE: Patient is feeling better now stronger and anxious try and go home, realize he need get physical therapy once his Tran catheter out.Vital signs: Temperature 98.7 degrees, pulse 80, respirations 16, blood pressure 120/70. HEENT: Pupils are equal, round. Lungs: Are clear in all lung govea. Cardiovascular: Regular rhythm and rate without murmur or S3. Abdomen: Soft. Skin: Is warm, dry. Urine output over 6 L. LAB: White count 11,820, hematocrit 45, platelet count 160,000. Blood sugars 241, 227, 131, sodium 131, potassium 3.4, chloride 85, BUN 31, creatinine 0.7. Chest x-ray, stable chronic low lung volumes, stable mild cardiomegaly. No infiltrates appreciated. ASSESSMENT AND PLAN: 1. Acute hypercapnic respiratory failure secondary obesity and hypoventilation. BiPAP was needed. Doing much better off the BiPAP. 2. Chronic obstructive pulmonary disease exacerbation, is improved. Continue bronchodilators and steroids, we are tapering. 3. Atrial fibrillation. Rate is controlled. He is on anticoagulation. 4. Ileus which is improved and feel like he can go home soon as soon as his strength is better. 5. Weakness and general deconditioning. Stopped his Tran catheter. Make sure he is getting physical therapy. I reviewed his other orders, do not see any other changes. cc: Daniel George MD
[2016-09-13] MEDS: NORCO-7.5 PO PRN (21:35)
[2016-09-13] MEDS: REQUIP PO SCH (21:35)
[2016-09-13] MEDS: DESYREL PO SCH (21:35)
[2016-09-14] MEDS: DUONEB (A & A) INH SCH ×6 (03:53→22:38)
[2016-09-14 04:37] LABS: ALLEN TEST YES; BE 21.4 mmoll (-3.0-3.0); BLOOD TYPE ARTERIAL; DRAW SITE R RADIAL; O2(CT) 18.5 mL/dL (15.0-23.0); PO2(98.6) 66 mmHg (60-100); SAMPLE BLOOD; SAO2 96.2 % (95.0-100.0); THB 14.2 g/dL (11.5-17.4); pH(98.6) 7.47 (7.35-7.45)
[2016-09-14 04:38] LABS: MODALITY CANNULA
[2016-09-14 04:39] LABS: PCO2(98.6) 68 mmHg (35-45)
[2016-09-14] MEDS: MUCOMYST 20% INH SCH ×2 (07:21→19:17)
--- NOTE | 2016-09-14 07:37 | Extremity Venous Study ---
PROCEDURE NAME: Venous U/S Bilateral Legs - 09/08/2016 STUDY: Bilateral lower extremity venous duplex study. REFERRING PHYSICIAN: Ja Otoole MD READING PHYSICIAN: Uvaldo Moran MD RN SECURITY: [place] INDICATION: Shortness of breath with a history of DVT in the right leg, pulmonary embolus and inferior vena cava filter. This is compared to previous study on 01/12/2014. FINDINGS: The right common femoral, superficial femoral, deep femoral, greater saphenous, popliteal, posterior tibial, and peroneal veins were imaged throughout their course as well as the left common femoral, superficial femoral, deep femoral, greater saphenous, popliteal, posterior tibial, and peroneal veins. The visualized veins were compressible and patent. No thrombus was appreciated. The mid to distal superficial femoral vein was not seen likely secondary to the patient's morbid obesity. Reflux was noted in the left common femoral vein and superficial femoral vein. Overall, this appears to be improved from the previous study as there is no longer any thrombus noted in the right popliteal vein. cc: MD Ja Martínez MD
[2016-09-14] MEDS: SENOKOT PO SCH (10:06)
[2016-09-14] MEDS: CULTURELLE PO SCH ×2 (10:06→21:48)
[2016-09-14] MEDS: ALDACTONE PO SCH (10:06)
[2016-09-14] MEDS: PRINIVIL PO SCH (10:06)
[2016-09-14] MEDS: SOLU-MEDROL IV SCH (10:07)
[2016-09-14] MEDS: THERA M PLUS PO SCH ×2 (10:07→21:48)
[2016-09-14] MEDS: LASIX IV SCH (10:07)
[2016-09-14] MEDS: CARDIZEM CD PO SCH (10:07)
[2016-09-14] MEDS: MIRALAX PO SCH ×2 (10:07→21:48)
[2016-09-14] MEDS: FOLIC ACID PO SCH ×2 (10:07→21:48)
[2016-09-14] MEDS: PROTONIX IV SCH (10:07)
[2016-09-14] MEDS: ICAR-C PO SCH ×2 (10:07→21:48)
[2016-09-14] MEDS: LACTULOSE PO SCH ×2 (10:09→21:47)
[2016-09-14] MEDS: ROCEPHIN 1 GM/NS 1 GM/50 ML IVPB IV SCH (12:03)
--- NOTE | 2016-09-14 12:54 | Diag Imaging Result Doc PS360 ---
EXAM: CHEST-PORTABLE HISTORY: sob COMMENT: The inspiration is suboptimal. Compared to 09/11/2016 the appearance of the chest has not changed significantly considering differences in technique. The left ventricle appears to be enlarged. IMPRESSION: Cardiomegaly. Electronically signed by Misbah Shaikh 09/14/2016 12:52 PM
--- NOTE | 2016-09-14 15:44 | PROGRESS NOTE ---
DATE: 09/14/2016 SUBJECTIVE: Mr. Velez feels like he has improved; he is stronger. Tran catheter is out. His voiding without difficulty, although he says he does not really have as much sensation when he is about to start or when he has quit urinating. That bothersome him a little bit but he is urinating with the urinal. OBJECTIVE: Vital signs: Temp 98.3 degrees, pulse 95, respirations 18, blood pressure 102/61. HEENT: Pupils are equal, round. Lungs: Clear in all lung govea. Cardiovascular: Regular rhythm and rate without murmur or S3. : Good urine output. LABORATORY: Blood count from the 15th reviewed. Hematocrit 45. Electrolytes look good from the 15th. Blood sugars 227, 131, 252. ASSESSMENT AND PLAN: 1. Acute hypercapnic respiratory failure secondary obesity hypoventilation. BiPAP was used for a time. He is off the BiPAP, doing better. Better air and gas exchange. 2. Chronic obstructive pulmonary disease. Chronic bronchodilators. Steroids to taper. 3. Atrial fibrillation. Rate controlled. 4. Ileus which has resolved. 5. General weakness and deconditioning, obesity. Continue physical therapy. Hope to get him to rehab on Monday. I hope he will be ready for that. His current orders and medications reviewed. I do not see any change at this point. cc: Daniel George MD
[2016-09-14] MEDS: XARELTO PO SCH (16:05)
[2016-09-14] MEDS: LEVAQUIN 750 MG/D5W 750 MG/150 ML IVPB IV SCH (16:05)
[2016-09-14] MEDS: DESYREL PO SCH (21:48)
[2016-09-14] MEDS: REQUIP PO SCH (21:48)
[2016-09-14] MEDS: NORCO-7.5 PO PRN (21:55)
[2016-09-15] MEDS: NORCO-7.5 PO PRN ×2 (04:57→21:10)
[2016-09-15] MEDS: PROTONIX PO SCH (06:48)
[2016-09-15] MEDS: DUONEB (A & A) INH SCH ×5 (07:34→23:20)
[2016-09-15] MEDS: MUCOMYST 20% INH SCH ×2 (07:34→19:58)
[2016-09-15] MEDS: SOLU-MEDROL IV SCH (08:49)
[2016-09-15] MEDS: LASIX IV SCH (08:49)
[2016-09-15] MEDS: ICAR-C PO SCH ×2 (08:50→21:10)
[2016-09-15] MEDS: SENOKOT PO SCH (08:50)
[2016-09-15] MEDS: FOLIC ACID PO SCH ×2 (08:50→21:09)
[2016-09-15] MEDS: THERA M PLUS PO SCH ×2 (08:50→21:10)
[2016-09-15] MEDS: ALDACTONE PO SCH (08:50)
[2016-09-15] MEDS: LACTULOSE PO SCH ×2 (08:50→21:12)
[2016-09-15] MEDS: PRINIVIL PO SCH (08:50)
[2016-09-15] MEDS: CULTURELLE PO SCH ×2 (08:50→21:09)
[2016-09-15] MEDS: CARDIZEM CD PO SCH (08:50)
[2016-09-15] MEDS: MIRALAX PO SCH ×2 (08:51→21:12)
[2016-09-15] MEDS: ROCEPHIN 1 GM/NS 1 GM/50 ML IVPB IV SCH (12:33)
--- NOTE | 2016-09-15 14:10 | PROGRESS NOTE ---
DATE: 09/15/2016 SUBJECTIVE: This patient states that he is feeling fine. He states that with physical activity he feels a little bit tired. He denies any nausea, vomiting. No diarrhea. No constipation. I had a really large conversation about obesity, sleep apnea, and obesity hypoventilation syndrome. This patient should have as an outpatient a sleep study. Probably he will benefit from a CPAP machine. OBJECTIVE: Vital Signs: Temperature 98.5 degrees, pulse 84, respiratory rate 17, blood pressure 104/67, oxygen saturation 93 on 6 L of nasal cannula. HEENT: Head normocephalic. No trauma. PERRLA. Neck: Supple. No JVD. No masses. Central trachea. Chest: Decreased breath sounds globally. Prolonged expiatory phase. Cardiovascular: RRR. Abdomen: Soft, nontender, nondistended. Obese. Extremities: No edema. No clubbing. No cyanosis. Neurological: The patient is alert and oriented x3. No focal deficits. LABORATORY: Glucose 198. ASSESSMENT AND PLAN: 1. Acute hypercapnic respiratory failure secondary to obesity hypoventilation syndrome/sleep apnea. A BiPAP machine has been used for a time. Now he is on oxygen. He states that he has been on oxygen at home but only during the night. He is breathing better. 2. Chronic obstructive pulmonary disease. Continue with bronchodilator. Continue with steroids. 3. Atrial fibrillation. Rate controlled. 4. Ileus which has resolved. He has been having bowel movements. No abdominal pain. 5. General weakness and physical deconditioning, obesity. Continue with physical therapy. This patient should go to a rehab facility. I hope he will be ready for that. His oxygen saturation has been in the low 90s with 6 L of nasal cannula. cc: Win Tellez MD
[2016-09-15] MEDS: LEVAQUIN 750 MG/D5W 750 MG/150 ML IVPB IV SCH (17:35)
[2016-09-15] MEDS: XARELTO PO SCH (17:35)
[2016-09-15] MEDS: TYLENOL PO PRN (17:35)
[2016-09-15] MEDS: REQUIP PO SCH (21:09)
[2016-09-15] MEDS: DESYREL PO SCH (21:09)
[2016-09-16 04:00] LABS: AGAP 10; BUN 25 mg/dL (8-22); CALCIUM 8.7 mg/dL (8.8-10.2); CHLORIDE 87 mmol/L (98-107); COSMO 275; MAGNESIUM 2.3 mg/dL (1.5-2.7); POTASSIUM 4.4 mmol/L (3.5-5.1); SODIUM 134 mmol/L (136-145); TCO2 37 mmol/L (25-35)
[2016-09-16] MEDS: DUONEB (A & A) INH SCH ×4 (04:04→15:36)
[2016-09-16] MEDS: PROTONIX PO SCH (06:42)
[2016-09-16] MEDS: MUCOMYST 20% INH SCH (07:36)
[2016-09-16] MEDS: ALDACTONE PO SCH (08:32)
[2016-09-16] MEDS: THERA M PLUS PO SCH (08:32)
[2016-09-16] MEDS: CULTURELLE PO SCH (08:32)
[2016-09-16] MEDS: CARDIZEM CD PO SCH (08:32)
[2016-09-16] MEDS: FOLIC ACID PO SCH (08:32)
[2016-09-16] MEDS: LASIX IV SCH (08:32)
[2016-09-16] MEDS: SENOKOT PO SCH (08:33)
[2016-09-16] MEDS: ICAR-C PO SCH (08:33)
[2016-09-16] MEDS: SOLU-MEDROL IV SCH (08:34)
[2016-09-16] MEDS: LACTULOSE PO SCH (08:34)
[2016-09-16] MEDS: PRINIVIL PO SCH (08:34)
[2016-09-16] MEDS: MIRALAX PO SCH (08:34)
[2016-09-16] MEDS: ROCEPHIN 1 GM/NS 1 GM/50 ML IVPB IV SCH (12:27)
[2016-09-16] MEDS ORDERED: MEDROL DOSEPAK PO SCH (13:45)
--- NOTE | 2016-09-16 14:28 | DISCHARGE SUMMARY ---
ADMISSION DATE: 09/06/2016 DISCHARGE DATE: 09/16/2016 DISCHARGE DIAGNOSES: 1. Acute hypercapnic respiratory failure, improving. 2. Congestive heart failure exacerbation. 3. Hypertension. 4. History of paroxysmal atrial fibrillation. 5. History of pulmonary embolism. 6. Chronic obstructive pulmonary disease. 7. Morbid obesity. 8. Obesity hypoventilation syndrome. CONSULTATIONS: 1. Cardiology Department, Dr. Russell. 2. Dr. Ariza. HISTORY OF PRESENT ILLNESS: This is a 66-year-old obese male with a history of paroxysmal atrial fibrillation, COPD, obesity hypoventilation syndrome, hypertension, who came to the emergency department with the chief complaint of progressive shortness of breath. As per their report, he has been a longterm resident but had saturations at 82%. He came in with altered mental status. He presented with profound hypercapnia, and he was placed on BiPAP, normal white count. Chest x- ray was read as volume overload and vascular congestion. They denied fever, chills, cough or chest pain. He was admitted secondary to acute hypercapnic respiratory failure and fluid overload. Cardiology Department and Pulmonary Department were consulted. We did echocardiogram that showed globally preserved ejection fraction around 50% to 55%. No valvular abnormalities. Significant enlargement of the chambers, they left and the right ventricles. No diastolic dysfunction. Pulmonary pressure somewhere around 39 to 44 mmHg. After getting treatment for the COPD and also getting diuresis, this patient was improving on a daily basis. Today, this patient is getting 4 L of oxygen by nasal cannula, and his oxygen saturation is somewhere between 90% to 94%. Since this patient has COPD, it is okay to keep the oxygen saturation between 88% and 92%. Also this patient asked for an appointment with Dr. Landa. He needs a sleep study, and hopefully he will get a CPAP machine so he can sleep with this during the night. Today, this patient is doing much better. He is alert and oriented x3. He is feeling fine. We will discharge this patient. PHYSICAL EXAMINATION: VITAL SIGNS: Temperature is 97.9, pulse 78, respiratory rate 17, blood pressure 109/70, oxygen saturation 95% on 4 L nasal cannula. HEENT: Head is normocephalic and atraumatic. PERRLA. NECK: Supple. No JVD. No masses. Central trachea. CHEST: Decreased breath sounds globally. Prolonged expiratory phase. No wheezing. No rales. ABDOMEN: Obese. Nontender, nondistended, protuberant. EXTREMITIES: No edema, no clubbing, no cyanosis. NEUROLOGICAL: Nonfocal. DIAGNOSTIC DATA: Sodium is 134, potassium 4.4, chloride 87, bicarbonate 37, BUN is 25, creatinine 0.7, glucose 143, calcium 8.7. DISCHARGE MEDICATIONS: Acetaminophen 650 mg p.o. q.6 hours p.r.n., diltiazem 120 mg p.o. daily, folic acid 1 mg p.o. b.i.d., Icar-C one tablet p.o. b.i.d., Culturelle 1 tablet p.o. b.i.d., lisinopril 5 mg p.o. daily, Thera-M Plus 1 tablet p.o. b.i.d., pantoprazole 40 mg p.o. daily, MiraLAX 17 g p.o. b.i.d., Xarelto 20 mg p.o. with supper, ropinirole 0.5 mg p.o. nightly at bedtime, spironolactone 12.5 mg p.o. daily, albuterol 2.5 mg inhaler 4 times a day p.r.n., ProAir HFA 8.5 g inhaler daily, Tessalon 100 mg t.i.d. p.r.n., docusate 100 mg p.o. b.i.d., Flonase 1 spray daily nasally, furosemide 40 mg p.o. daily, Taft 7.5 one to 2 tablets p.o. q.6 to 8 hours p.r.n. pain, lactulose 30 mg p.o. daily, Zofran 4 mg p.o. q.4 hours and Medrol Dosepak as directed. FOLLOWUP: His primary doctor in 1 week. This patient needs to get an appointment with Dr. Landa to get a sleep study. cc: Win Tellez MD
[2016-09-16 16:03] VITALS: BP 102/66
[2016-09-16] MEDS ORDERED: SPIRIVA INH SCH (16:15)
[2016-09-16] MEDS: LEVAQUIN 750 MG/D5W 750 MG/150 ML IVPB IV SCH (16:38)
[2016-09-16] MEDS: XARELTO PO SCH (16:38)
[2016-09-16] MEDS ORDERED: MEDROL PO SCH (17:00)
== END 2016-09-16 17:16 ==
LOC: ED 13:02 → ICU 16:36 → SUATTDRO 16:36 → 3N 09-09 09:46
PROVIDERS: ATTEND Internal Medicine

== ENCOUNTER 2018-04-27 21:17 | Inpatient (IN) ==
--- NOTE | 2018-04-27 21:38 | Diag Imaging Result Doc PS360 ---
EXAM: CT HEAD W/O CONTRAST 04/27/2018 HISTORY: stroke like symptoms TECHNIQUE: This exam was performed using automated exposure control, adjustment of mA or kV according to patient size, and/or use of iterative reconstruction technique. COMMENT: There are some patchy lucencies present in the subcortical white matter of the left frontal and parietal lobes. There is no evidence of mass effect, bleed, abnormal extra-axial fluid collection, or hydrocephalus. There is persistence of the metopic suture and hyperostosis frontalis interna. The calvarium is intact. IMPRESSION: No evidence of acute intracranial disease. Chronic ischemic microvascular white matter changes. Electronically signed by Misbah Shaikh 04/27/2018 9:36 PM
--- NOTE | 2018-04-27 21:41 | Diag Imaging Result Doc PS360 ---
EXAM: CHEST-PORTABLE 04/27/2018 HISTORY: stroke like symptoms TECHNIQUE: AP portable semierect chest at 2135 COMMENT: There is left ventricular enlargement. The pulmonary vascularity is increased. There is some atelectasis or pneumonia in the right lower lobe. This is worse than on 09/13/2016. IMPRESSION: Cardiomegaly. Pulmonary vascular and coarse bent and right lower lobe atelectasis. Electronically signed by Misbah Shaikh 04/27/2018 9:38 PM
[2018-04-27 22:58] LABS: INR 1.08; PROTIME 14.8 Seconds (11.0-16.0)
[2018-04-27 22:59] LABS: PTT 33.6 Seconds (22.3-41.8)
[2018-04-27 23:01] LABS: BASO# 0.02 X1000 (0.0-0.2); BASO% 0.2 % (0.0-0.8); EOS# 0.13 X1000 (0.0-0.7); EOS% 1.5 % (0.0-10.0); HEMATOCRIT 43.2 % (42.0-52.0); HEMOGLOBIN 13.8 g/dL (14.0-18.0); IMM GRAN# 0.08 X1000 (0.0-0.04); IMM GRAN% 0.9 % (0.0-0.5); LYMPH# 1.91 X1000 (1.2-3.4); LYMPH% 22.6 % (20.5-51.1); MCH 27.5 PG (27-31); MCHC 31.9 g/dL (33-37); MCV 86.1 FL (81-99); MONO# 0.55 X1000 (0.11-0.59); MONO% 6.5 % (1.7-9.3); MPV 9.4 FL (7.4-10.4); NEUT# 5.77 X1000 (1.4-6.5); NEUT% 68.3 % (42.2-75.2); PLT 190 X1000 (130-400); RBC 5.02 XMIL (4.7-6.1); RDW 12.3 % (11.5-14.5); WBC 8.46 X1000 (4.8-10.8)
[2018-04-27 23:06] LABS: ESTIMATED GFR > 60
[2018-04-27 23:15] LABS: AGAP 8; ALB/GLOB RATIO 1.7; ALBUMIN 3.8 g/dL (3.5-5.0); ALKALINE PHOSPHATASE 78 U/L (32-122); BUN 8 mg/dL (8-22); CALCIUM 8.9 mg/dL (8.8-10.2); CHLORIDE 77 mmol/L (98-107); COSMO 246; CREATININE 0.6 mg/dL (0.7-1.2); GLUCOSE 127 mg/dL (70-104); GOT 17 U/L (10-34); GPT 15 U/L (10-44); POTASSIUM 4.6 mmol/L (3.5-5.1); SODIUM 122 mmol/L (136-145); TCO2 37 mmol/L (25-35); TOTAL BILIRUBIN 0.56 mg/dL (0.20-1.00); TOTAL PROTEIN 6.1 g/dL (6.3-8.3)
[2018-04-28 01:35] LABS: URINE SOURCE CATH
[2018-04-28 01:37] LABS: BILIRUBIN URINE NEGATIVE (NEGATIVE); BLOOD URINE NEGATIVE (NEGATIVE); COLOR YELLOW; GLUCOSE URINE NEGATIVE (NEGATIVE); KETONE URINE TRACE mg/dL (NEGATIVE); LEUKOCYTES URINE MODERATE (NEGATIVE); NITRITE URINE NEGATIVE (NEGATIVE); PROTEIN URINE 50 mg/dL (NEGATIVE); TURBIDITY URINE TURBID (CLEAR); UROBILINOGEN URINE 12 mg/dL (NORMAL)
[2018-04-28 01:45] LABS: UR EPITHELIAL CELLS <10 /HPF (<10); URINE BACTERIA 4+ /HPF; URINE RBC TNTC /HPF (<10); URINE WBC TNTC /HPF (<10)
[2018-04-28 02:07] LABS: UR AMPHETAMINES QUAL NONE DETECTED (NONE DETECT); UR BARBITUATES QUAL NONE DETECTED (NONE DETECT); UR BENZODIAZEPIN QUAL NONE DETECTED (NONE DETECT); UR CANNABINOIDS QUAL NONE DETECTED (NONE DETECT); UR COCAINE QUAL NONE DETECTED (NONE DETECT); UR METHADONE QUAL NONE DETECTED (NONE DETECT); UR OPIATES QUAL PRESUMPTIVE POSITIVE (NONE DETECT); UR OXYCODONE QUAL NONE DETECTED (NONE DETECT); UR PCP QUAL NONE DETECTED (NONE DETECT)
[2018-04-28 02:15] LABS: URINE YEAST PRESENT
[2018-04-28] MEDS ORDERED: ROCEPHIN IV ONE (02:55)
[2018-04-28 04:06] LABS: ALLEN TEST YES; BE 15.3 mmoll (-3.0-3.0); BLOOD TYPE ARTERIAL; HCO3-(ACT) 36.7 mmoll (20.0-26.0); METHB 1.1 % (0.0-1.5); O2(CT) 18.1 mL/dL (15.0-23.0); O2HB 93.3 % (95.0-99.0); PO2(98.6) 76 mmHg (60-100); SAMPLE BLOOD; SAO2 96.1 % (95.0-100.0); THB 13.8 g/dL (11.5-17.4); pH(98.6) 7.32 (7.35-7.45)
[2018-04-28 04:08] LABS: MODALITY CANNULA; PCO2(98.6) 89 mmHg (35-45)
[2018-04-28] MEDS ORDERED: NS 50 ML ONE (04:31)
[2018-04-28] MEDS ORDERED: ZOFRAN IV PRN (05:32)
[2018-04-28] MEDS ORDERED: TYLENOL PO PRN (05:32)
[2018-04-28 07:01] LABS: BASO# 0.02 X1000 (0.0-0.2); BASO% 0.3 % (0.0-0.8); EOS# 0.14 X1000 (0.0-0.7); HEMATOCRIT 42.3 % (42.0-52.0); HEMOGLOBIN 13.4 g/dL (14.0-18.0); IMM GRAN# 0.03 X1000 (0.0-0.04); IMM GRAN% 0.4 % (0.0-0.5); LYMPH# 1.58 X1000 (1.2-3.4); LYMPH% 22.7 % (20.5-51.1); MCH 27.6 PG (27-31); MCHC 31.7 g/dL (33-37); MCV 87.2 FL (81-99); MONO# 0.56 X1000 (0.11-0.59); MONO% 8.1 % (1.7-9.3); NEUT# 4.62 X1000 (1.4-6.5); NEUT% 66.5 % (42.2-75.2); PLT 211 X1000 (130-400); RBC 4.85 XMIL (4.7-6.1); RDW 12.4 % (11.5-14.5); WBC 6.95 X1000 (4.8-10.8)
[2018-04-28] MEDS: DUONEB (A & A) INH SCH ×4 (07:23→21:37)
[2018-04-28 07:31] LABS: ESTIMATED GFR > 60
[2018-04-28 07:36] LABS: AGAP 5; BUN 9 mg/dL (8-22); CALCIUM 9.4 mg/dL (8.8-10.2); CHLORIDE 77 mmol/L (98-107); CK PROFILE 166 U/L (24-204); COSMO 242; CREATININE 0.6 mg/dL (0.7-1.2); GLUCOSE 119 mg/dL (70-104); MAGNESIUM 1.8 mg/dL (1.5-2.7); SODIUM 121 mmol/L (136-145); TCO2 38 mmol/L (25-35)
[2018-04-28] MEDS: THERA M PLUS PO SCH ×2 (08:55→21:09)
[2018-04-28] MEDS: CULTURELLE PO SCH ×2 (08:56→21:09)
[2018-04-28] MEDS: DIFLUCAN PO SCH (08:56)
[2018-04-28] MEDS: PEPCID PO SCH ×2 (08:56→21:09)
[2018-04-28] MEDS: CARDIZEM CD PO SCH (08:56)
[2018-04-28] MEDS: REQUIP PO SCH ×3 (08:56→21:18)
[2018-04-28] MEDS: FOLIC ACID PO SCH ×2 (08:56→21:09)
[2018-04-28] MEDS ORDERED: TESSALON PO PRN (08:58)
[2018-04-28] MEDS ORDERED: XARELTO PO SCH (09:00)
[2018-04-28] MEDS: ICAR-C PO SCH ×2 (09:00→21:08)
[2018-04-28] MEDS: NS 1,000 ML IV SCH (09:17)
[2018-04-28] MEDS: MAXIPIME 1 GM in NS 50 ML IV SCH ×2 (09:18→21:23)
[2018-04-28 09:53] LABS: ALLEN TEST YES; BE 13.6 mmoll (-3.0-3.0); BLOOD TYPE ARTERIAL; HCO3-(ACT) 35.4 mmoll (20.0-26.0); METHB 0.2 % (0.0-1.5); O2(CT) 17.8 mL/dL (15.0-23.0); O2HB 92.6 % (95.0-99.0); PO2(98.6) 62 mmHg (60-100); SAMPLE BLOOD; SAO2 95.7 % (95.0-100.0); THB 13.7 g/dL (11.5-17.4); pH(98.6) 7.32 (7.35-7.45)
[2018-04-28 09:54] LABS: MODALITY CANNULA
[2018-04-28] MEDS: ZYVOX 600 MG/D5W 600 MG/300 ML IVPB IV SCH ×2 (10:00→21:34)
[2018-04-28 10:08] LABS: PCO2(98.6) 85 mmHg (35-45)
--- NOTE | 2018-04-28 10:32 | HISTORY AND PHYSICAL ---
PRIMARY CARE PROVIDER: Dr. Pillai. DATE AND TIME: 04/28/2018 at 0330. CHIEF COMPLAINT: Altered mental status. HISTORY OF PRESENT ILLNESS: Mr. Velez is a 68-year-old male who was reportedly sent to the ER for further evaluation tonight after being found by [facility] staff at [facility] and was reported to be unresponsive and confused. EMS reported to ER staff that on their arrival, the patient was alert and oriented x2 with a GCS of 14. He was oriented to person and place. The patient reportedly wears oxygen at night at the [facility] for which we believe is 2-4 L per nasal cannula. The patient at this time is reporting shortness of breath. Reports that if he moves too quickly, he does have a very brief coughing spell but this subsides once he is at rest. He does report some dizziness upon him first sitting up in the morning. He is denying any headache, chest pain, abdominal pain, nausea, vomiting, diarrhea or constipation. The patient states that he has been unable to clean himself up when he has a bowel movement though has not heard the nurses mention that he has had black or bloody stools. The patient denies any dysuria or urinary frequency. He states that he had been urinating fine until he got here and was unable to urinate. He has no known reported fever, body aches or chills. Patient does report chronic edema in his bilateral lower extremities. He states this is not worse at this time. He reports that he is a primary resident at [facility] and has been there for approximately 4 years. He states that he is not ambulatory, he is pretty much bed bound and wheelchair bound. On evaluation in the ER, the patient was initially noted by ER staff to be a little confused at times about certain things though he was alert and oriented to person, place and time and does follow commands. He was noted to have some hyponatremia with a sodium of 122. He was also noted to have a urinary tract infection as well. They did perform a CT head noncontrast which showed no evidence of acute intracranial abnormalities. Chest x-ray did show cardiomegaly and increased pulmonary vascularity. There was also mention of some right lower lobe atelectasis as well. Patient has been given a dose of Rocephin in the ER for treatment of his UTI. Also upon assessing the patient, the patient is morbidly obese. He does have a history in the past of having hypercapnia and obesity hypoventilation syndrome. We did perform an ABG which did show that his CO2 was elevated at 89 with a pH of 7.32, PO2 76, HC03 was 36.7. At this time, the patient has been placed on BiPAP. He will be placed for inpatient admission for further treatment and evaluation of his encephalopathy, UTI, hypercapnia and hyponatremia. REVIEW OF SYSTEMS: A 14 point review of systems was conducted with the patient and all were negative except for pertinent positives mentioned above in HPI. PAST MEDICAL HISTORY: 1. COPD. 2. Morbid obesity. 3. Paroxysmal atrial fibrillation. 4. Folic acid deficiency. 5. Chronic pain disorder. 6. Iron deficiency anemia. 7. GERD. 8. History of PE and DVT. 9. Hypertension. 10.Congestive heart failure. 11.Obesity hypoventilation syndrome. PAST SURGICAL HISTORY: 1. Cholecystectomy. 2. Right total knee arthroplasty. FAMILY HISTORY: Positive for his mother having a history of heart disease and lung cancer. His father had a history of hypertension. SOCIAL HISTORY: The patient is a permanent resident at [facility] and has been so for 4 years. He states that he is pretty much bed bound and wheelchair bound. He does not ambulate. He is a former smoker. He did smoke 1 pack a day for a period of 7 years. Patient does report that he did previously use alcohol and was a heavy every weekend drinker for approximately 6-7 years though denies any recent alcohol use. He has no known illicit drug use. ALLERGIES: The patient has no known allergies. HOME MEDICATIONS: 1. ProAir HFA inhaler 8.5 grams inhaled daily. 2. FiberCon 625 mg p.o. daily. 3. Cardizem CD 120 mg p.o. daily. 4. Famotidine 20 mg p.o. b.i.d. 5. Folic acid 1 mg p.o. b.i.d. 6. Lasix 40 mg p.o. at bedtime. 7. Everetts 7.5 mg one p.o. q.12 hours p.r.n. for pain. 8. DuoNeb treatments 3 mL inhaled t.i.d. 9. Icar C one p.o. b.i.d. 10.Culturelle one p.o. b.i.d. 11.Lisinopril 5 mg p.o. daily. 12.Melatonin 5 mg one p.o. at bedtime. 13.Thera-M Plus multivitamin one p.o. b.i.d. 14.Klor-Con 10 mEq p.o. q.a.m. 15.Xarelto 20 mg p.o. daily. 16. Requip 10 mg p.o. t.i.d. 17.Carafate 1 gram p.o. q.6 hours. 18.Flomax 0.4 mg p.o. at bedtime. 19.Spiriva 1 puff inhaled daily. 20.Trazodone 75 mg p.o. at bedtime. DIAGNOSTIC DATA/LABORATORY RESULTS: White blood cell count is 8,460, hemoglobin 13.8, hematocrit 43.2, platelet count 190,000. PT 14.8, INR 1.08, PTT is 33.6. Sodium 122, potassium 4.6, chloride 77. Serum bicarb is 37, BUN 8, creatinine 0.6, glucose 127. Serum osmolality is 261. Calcium 8.9. Liver function tests within normal limits. Troponin is less than 0.01. ProBNP is 458. Arterial blood gases obtained on nasal cannula at FIO2 of 40%, pH 7.32, PCO2 89, PO2 76, HCO3 is 36.7 with a base excess of 15.3. O2 saturation is 96.1. Urinalysis was obtained via catheter and was positive for protein, trace ketones, moderate leukocytes, too numerous to count white blood cells and red blood cells, 4+ bacteria and there was yeast present also. Urine drug screen was positive for opiates. EKG showed sinus rhythm with a first degree AV block with wide premature atrial complexes and nonspecific intraventricular block. The patient on a previous EKG in August of 2016 did have a first degree AV block noted then as well. CT of the head noncontrast showed no evidence of acute intracranial disease, chronic ischemic microvascular white matter changes. Chest x-ray showed cardiomegaly as well as pulmonary vascular and coarse right lower lobe atelectasis. PHYSICAL EXAMINATION: VITAL SIGNS: Temperature 98.4 degrees, heart rate 72, respirations 16, blood pressure 119/72, oxygen saturation is 97% on BiPAP. GENERAL: Mr. Velez is a 68-year-old obese elderly male who is resting in the ER stretcher. He was in no acute distress. He was awake and alert and oriented to person, place and time though the patient does seem a little slow to respond to questions at times. He did state that he felt as though he felt very tired. HEENT: Head atraumatic, normocephalic. Pupils were equal, round and reactive to light, were 3 mm bilaterally and brisk. Oral mucosa is slightly dry. NECK: Supple. Trachea midline though the patient does have JVD noted upon examination. Did have a slight hepatojugular reflux as well. CARDIOVASCULAR: Patient has S1, S2 present. No murmurs, gallops, rubs appreciated. There is a regular rate and rhythm. PULMONARY: Patient has symmetrical chest expansion bilaterally. Lung sounds in bilateral upper govea were clear to auscultation though lung sounds in bilateral bases were diminished although this may be secondary to body habitus. ABDOMEN: Soft though does appear slightly distended though the patient does have a protuberant abdomen noted. He was nontender upon palpation. Bowel sounds are present in all 4 quadrants. EXTREMITIES: The patient does have 2+ pitting edema noted in bilateral lower extremities from approximately bilateral knees down. Though he is able to move all of his extremities, he does have some generalized weakness noted. Pulse, motor and sensory are intact in all extremities. Radial pulses and pedal pulses were 2+ bilaterally. Capillary refill is less than 3. INTEGUMENTARY: The patient's skin is pink, warm and dry. NEUROLOGICAL: The patient is alert and oriented to person, place and time. He does seem slow to respond to questions at times though there are no focal neurological deficits noted. He is able to move all extremities though does appear to have some generalized weakness noted as well. ASSESSMENT AND PLAN: 1. Urinary tract infection. For treatment of this, we have placed the patient with antibiotic coverage of Rocephin 1 gram IV q.24 hours. A urine culture has been placed as well. The patient did have yeast present in his urine. We have also ordered for him to receive fluconazole 200 mg p.o. daily. We will await urine culture results and continue to follow. 2. Congestive heart failure. Patient does appear to be in a slight exacerbation. We will continue with his regularly prescribed medications. We will continue his Lasix 40 mg p.o. daily and we will monitor this closely. The patient's last ejection fraction in August of 2016 was 50-55%. 3. Hypervolemic hypertonic hyponatremia. This may be secondary to the patient's congestive heart failure. We will continue to monitor this closely. We have held his lisinopril at this time. We will do frequent neuro checks. 4. Acute hypercapnic respiratory failure. This is likely secondary to patient's history of COPD and obesity hypoventilation syndrome. He has been placed on BiPAP at this time. The patient is not in any respiratory distress. He has been maintaining adequate oxygen saturation. We will continue his BiPAP. We will repeat an ABG later on this morning. 5. Encephalopathy. This is likely multifactorial, the patient does have a UTI, hypercapnia, and some hyponatremia. We will continue to monitor this closely with continuous cardiac telemetry, vital signs and neuro checks every 4 hours. I suspect this will improve after he has been on BiPAP and his hypercapnia improves. We will recheck an ABG later on this morning and we will continue to follow closely. 6. History of atrial fibrillation. The patient is in sinus rhythm at this time with first degree AV block. We will continue his Cardizem as well as his Xarelto. We will continue to follow. 7. History of PE and DVT. We will continue his Xarelto. 8. DVT prophylaxis will be provided with Xarelto as mentioned above. The patient has been placed on the medical floor with telemetry. We will monitor vital signs and neuro checks q.4 hours. We will do strict intake and output, Incentive spirometry, and aspiration precautions. He will be on a diabetic diet. Patient states he is a diabetic and this is diet controlled. His fingerstick blood sugars were slightly elevated. We have placed Lispro insulin per low dose protocol for hyperglycemic coverage. Further orders and recommendations pending hospital course, diagnostic studies and physician evaluation. Dictated by SHAE Rainey for Odalys Rg MD cc: Odalys Rg MD I performed an independent exam and assessment of this patient with [employer] at bedside. Other than the aforementioned, JVD and 1+ edema, he had decreased air entry in both lungs without any added sounds. No murmurs. No asterixis or myoclonus noted. Agree that he has hypotonic hypernatremic hyponatremia from likely CHF and this should respond to diuresis. Potentially neurotoxic meds like Trazodone will be held along with any other sedating meds which can cause indirectly hypercapnia. Agree with rest of plan above and discussed with [employer]. JAY
[2018-04-28] MEDS: FIBERCON PO SCH (11:52)
[2018-04-28] MEDS: HUMALOG SUBQ SCH ×3 (11:52→21:28)
[2018-04-28] MEDS ORDERED: LASIX IV ONE ×2 (15:51)
[2018-04-28] MEDS: XARELTO PO SCH (16:16)
[2018-04-28 16:20] LABS: FREE T4 1.19 ng/dL (0.93-1.70); TSH 2.92 uIUmL (0.27-4.20)
--- NOTE | 2018-04-28 17:16 | Diag Imaging Result Doc PS360 ---
EXAM: CHEST-PORTABLE INDICATION: dyspnea TECHNIQUE: One view COMPARISON: 04/27/2018 FINDINGS: Lung volumes are low but the previous study. There is evidence of pulmonary venous congestion that is essentially stable. Atelectasis versus mild infiltrate at the right lung base is approximately stable. No new consolidation is identified. Cardiac silhouette is stable. IMPRESSION: Stable chest. Electronically signed by Salvador Pavon 04/28/2018 5:14 PM
--- NOTE | 2018-04-28 19:16 | PROVIDER DOCUMENTATION ---
This chart was entered by Janeen Pryor Scribe, acting as scribe for Farzana Vanessa MD. HPI-Neurological Disorder - General Chief Complaint: Altered Mental Status Stated Complaint: ams Time Seen by Provider: 04/27/18 22:08 Source: patient Allergies/Adverse Reactions: Patient Allergies Allergy/AdvReac Type Severity Reaction Status Date / Time No Known Allergies Allergy Verified 04/28/18 05:10 Home Medications: Home Medication List Medication Instructions Recorded Confirmed Last Taken Type Albuterol Sulfate [Proair Hfa] 8.5 gm IH DAILY 01/22/14 04/28/18 07/09/14 09:00 History Diltiazem HCl [Cardizem Cd] 120 mg PO DAILY #0 cap.er.24h 02/10/14 04/28/1803/15 09:00 Rx Folic Acid 1 mg PO BID #0 tablet 02/10/14 04/28/18 07/09/14 09:00 Rx Iron Carbonyl/Ascorbic Acid 1 each PO BID #0 tablet 02/10/14 04/28/18 07/09/14 09:00 Rx [Icar-C] LISINOpril [Prinivil] 5 mg PO DAILY #0 tablet 02/10/14 04/28/18 07/09/14 09:00 Rx Lactobacillus Rhamnosus GG 1 each PO BID #0 capsule 02/10/14 04/28/18 07/09/14 09:00 Rx [Culturelle] Multivit,Fe,Ca,FA & Min [Thera M 1 each PO BID #0 tablet 02/10/14 04/28/1807/09 09:00 Rx Plus] Rivaroxaban [Xarelto] 20 mg PO DAILY #30 tablet 02/10/14 04/28/18 07/09/14 09: 00 Rx Sucralfate [Carafate] 1 gm PO Q6H #0 tablet 02/10/14 04/28/18 07/09/14 08:00 Rx Ropinirole HCl [Requip] 2 mg PO TID 07/09/14 04/28/18 07/08/14 02:00 History Tiotropium [place] Inhaler 1 puff INH RTDAILY #2 inhaler 09/16/16 04/28/18 Unknown Rx [Spiriva] Calcium Polycarbophil [Fibercon] 625 mg PO DAILY 04/28/18 04/28/18 Unknown History Famotidine 20 mg PO BID 04/28/18 04/28/18 Unknown History Furosemide [Lasix] 40 mg PO HS 04/28/18 04/28/18 Unknown History Hydrocodone/APAP 7.5 mg/325 mg 1 each PO Q12HR 04/28/18 04/28/18 Unknown History [[place]-7.5] Ipratropium/Albuterol Sulfate 3 ml IH TID 04/28/18 04/28/18 Unknown History [Iprat-Albut 0.5-3(2.5) mg/3 ml] Melatonin/Pyridoxine [Melatonin 5 1 each PO HS 04/28/18 04/28/18 Unknown History mg Tablet] Potassium Chloride E.r. [Klor-Con] 10 meq PO QAM 04/28/18 04/28/18 Unknown History Tamsulosin HCl 0.4 mg PO HS 04/28/18 04/28/18 Unknown History Trazodone [Desyrel] 75 mg PO QHS 04/28/18 04/28/18 Unknown History - History of Present Illness-Neuro Nature of Presenting Problem: Patient is a 68 year old male who presents to the ED via EMS with altered mental status. EMS states nursing staff stated patient was unresponsive this evening. EMS states on their arrival patient was awake, alert and oriented to person, place and time. Patient is awake and alert but confused on arrival to ED. Patient follows all commands. Headache Location: reports: other (no headache reported) Severity: reports: mild Onset/Duration: reports: this evening Timing: reports: still present Context: reports: other (AMS) Character of Altered Mental Status: reports: unresponsive Any recent trauma/injury?: reports: none New weakness or altered sensation location:: reports: none Cognitive Baseline: alert, oriented x3 Associated Symptoms: reports: denies symptoms Similar Symptoms Previously?: No Recently seen or treated by another doctor?: No Review of Systems - Adult - REVIEW OF SYSTEMS - ADULT Constitutional: reports: no symptoms reported Eyes: reports: no symptoms reported Ears, Nose, Mouth & Throat: reports: no symptoms reported Cardiovascular: reports: no symptoms reported Respiratory: reports: no symptoms reported Gastrointestinal: reports: no symptoms reported Genitourinary: reports: no symptoms reported Musculoskeletal: reports: no symptoms reported Integumentary: reports: no symptoms reported Neurological: reports: other (AMS - unresponsive). denies: dizziness/vertigo, headache/migraines, numbness, seizure Psychiatric: reports: no symptoms reported Endocrine: reports: no symptoms reported Hematologic/Lymphatic: reports: no symptoms reported Allergic/Immunologic: reports: no symptoms reported All Other Systems: Reviewed and Negative Past History - Adult - PAST MEDICAL HISTORY-ADULT Review of Records: reports: Nursing Assessment Review, Medications Reviewed, Social history reviewed & non-contributory. Major Childhood Illnesses: reports: denies history Cardiovascular: reports: A-Fib, CHF, HTN Respiratory: reports: COPD, sleep apnea Gastrointestinal: reports: cholelithiasis, GERD, other (food bolus, esoph spasms ) Obstetrical/Gynecological: reports: denies history Genitourinary: reports: denies history Musculoskeletal: reports: arthritis Neurological: reports: denies history Endocrine/Immune: reports: Diabetes Other Conditions: reports: denies history - PRIOR SURGERIES/PROCEDURES Surgical/Procedure History: reports: appendectomy, cholecystectomy, joint replacement (TKR) - IMMUNIZATION STATUS Childhood Immunizations: See Nurse Assessment Flu Vaccine: See Nurse Assessment - FAMILY HISTORY Family History: reviewed, not pertinent - SOCIAL HISTORY Smoking: cigarettes (former) Substance Use: denies Living Situation: care facility (SNF) Physical Exam- Neurological - Physical Exam-Neuro Initial Vital Signs Reviewed: Yes General Appearance: alert, no apparent distress Eye Exam: bilateral eye: normal inspection HENMT: normal ENT inspection Head Injury: no evidence of injury Neck: normal inspection Respiratory: chest non-tender, crackles, prolonged expiration Cardiovascular: normal peripheral pulses, regular rate, rhythm Abdominal Exam: normal bowel sounds, non tender, soft Extremity: non-tender, other (2 + 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: 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 hearing, normal speech, PERRL Motor/Sensory: no motor deficit, no sensory deficit, no pronator drift Neurologic: no motor/sensory deficits Integumentary: normal color, normal turgor, warm/dry Psych/Mental Status: other (confused) Progress - PLAN OF CARE/RESULTS Progress/Plan/Lab Results: Laboratory Results - last 24 hr 04/27/18 04/27/18 04/27/18 01:20 22:22 22:31 WBC 8.46 RBC 5.02 Hgb 13.8 L Hct 43.2 MCV 86.1 MCH 27.5 MCHC 31.9 L RDW Std Deviation 12.3 Plt Count 190 MPV 9.4 Immature Gran % (Auto) 0.9 H Neut % (Auto) 68.3 Lymph % (Auto) 22.6 [place] % (Auto) 6.5 Eos % (Auto) 1.5 Baso % (Auto) 0.2 Immature Gran # (Auto) 0.08 H Neut # (Auto) 5.77 Lymph # (Auto) 1.91 [place] # (Auto) 0.55 Eos # (Auto) 0.13 Baso # (Auto) 0.02 PT INR PTT (Actin FS) Specimen Type Sample Site pH pCO2 pO2 HCO3 Base Excess Oxyhemoglobin ABG O2 Sat (Calculated) ABG O2 Saturation ABG Carboxyhemoglobin ABG Methemoglobin Daniel Test A-a O2 Difference Total Hemoglobin Lactate Liter Flow Blood Gas Modality FiO2 % Sodium Potassium Chloride Carbon Dioxide Anion Gap BUN Creatinine Estimated GFR/1.73 m2 BUN/Creatinine Ratio Glucose POC Glucose 190 H Serum Osmolality Calculated Osmolality Calcium Total Bilirubin AST ALT Alkaline Phosphatase Troponin T Ntl-[id number]-Imyxvyppmyh Pept Total Protein Albumin Globulin Albumin/Globulin Ratio Urine Source Urine Color Urine Turbidity Urine pH Ur Specific [place] Urine Protein Ur Glucose (Stick) Ur Ketones (Stick) Urine Blood Urine Nitrite Urine Bilirubin Urobilinogen Dipstick Urine Leukocytes Urine WBC (Auto) Urine RBC (Auto) U Epithel Cells (Auto) Urine Bacteria (Auto) Urine Crystals Small Round Cells Urine Casts Urine Yeast-like Cells Urine Osmolality Ur Random Sodium Urine Opiates Screen PRESUMPTIVE POSITIVE A Ur Oxycodone Screen NONE DETECTED Ur Methadone, Qual NONE DETECTED Ur Barbiturates Screen NONE DETECTED Ur Phencyclidine Scrn NONE DETECTED Ur Amphetamines Screen NONE DETECTED U Benzodiazepines Scrn NONE DETECTED Urine Cocaine Screen NONE DETECTED U Cannabinoids Screen NONE DETECTED 04/27/18 04/27/18 04/27/18 22:31 22:31 22:31 WBC RBC Hgb Hct MCV MCH MCHC RDW Std Deviation Plt Count MPV Immature Gran % (Auto) Neut % (Auto) Lymph % (Auto) [place] % (Auto) Eos % (Auto) Baso % (Auto) Immature Gran # (Auto) Neut # (Auto) Lymph # (Auto) [place] # (Auto) Eos # (Auto) Baso # (Auto) PT 14.8 INR 1.08 PTT (Actin FS) 33.6 Specimen Type Sample Site pH pCO2 pO2 HCO3 Base Excess Oxyhemoglobin ABG O2 Sat (Calculated) ABG O2 Saturation ABG Carboxyhemoglobin ABG Methemoglobin Daniel Test A-a O2 Difference Total Hemoglobin Lactate Liter Flow Blood Gas Modality FiO2 % Sodium 122 L Potassium 4.6 Chloride 77 L Carbon Dioxide 37 H Anion Gap 8 BUN 8 Creatinine 0.6 L Estimated GFR/1.73 m2 > 60 BUN/Creatinine Ratio 13 Glucose 127 H POC Glucose Serum Osmolality Calculated Osmolality 246 Calcium 8.9 Total Bilirubin 0.56 AST 17 ALT 15 Alkaline Phosphatase 78 Troponin T < 0.010 Lat-Q-Ifhyhttxaco Pept Total Protein 6.1 L Albumin 3.8 Globulin 2.3 Albumin/Globulin Ratio 1.7 Urine Source Urine Color Urine Turbidity Urine pH Ur Specific [place] Urine Protein Ur Glucose (Stick) Ur Ketones (Stick) Urine Blood Urine Nitrite Urine Bilirubin Urobilinogen Dipstick Urine Leukocytes Urine WBC (Auto) Urine RBC (Auto) U Epithel Cells (Auto) Urine Bacteria (Auto) Urine Crystals Small Round Cells Urine Casts Urine Yeast-like Cells Urine Osmolality Ur Random Sodium Urine Opiates Screen Ur Oxycodone Screen Ur Methadone, Qual Ur Barbiturates Screen Ur Phencyclidine Scrn Ur Amphetamines Screen U Benzodiazepines Scrn Urine Cocaine Screen U Cannabinoids Screen 04/27/18 04/27/18 04/28/18 22:31 22:31 01:20 WBC RBC Hgb Hct MCV MCH MCHC RDW Std Deviation Plt Count MPV Immature Gran % (Auto) Neut % (Auto) Lymph % (Auto) [place] % (Auto) Eos % (Auto) Baso % (Auto) Immature Gran # (Auto) Neut # (Auto) Lymph # (Auto) [place] # (Auto) Eos # (Auto) Baso # (Auto) PT INR PTT (Actin FS) Specimen Type Sample Site pH pCO2 pO2 HCO3 Base Excess Oxyhemoglobin ABG O2 Sat (Calculated) ABG O2 Saturation ABG Carboxyhemoglobin ABG Methemoglobin Daniel Test A-a O2 Difference Total Hemoglobin Lactate Liter Flow Blood Gas Modality FiO2 % Sodium Potassium Chloride Carbon Dioxide Anion Gap BUN Creatinine Estimated GFR/1.73 m2 BUN/Creatinine Ratio Glucose POC Glucose Serum Osmolality 261 L Calculated Osmolality Calcium Total Bilirubin AST ALT Alkaline Phosphatase Troponin T Nui-X-Htbbacfxose Pept 458 H Total Protein Albumin Globulin Albumin/Globulin Ratio Urine Source CATH Urine Color YELLOW Urine Turbidity TURBID Urine pH 6.0 Ur Specific [place] 1.020 Urine Protein 50 A Ur Glucose (Stick) NEGATIVE Ur Ketones (Stick) TRACE A Urine Blood NEGATIVE Urine Nitrite NEGATIVE Urine Bilirubin NEGATIVE Urobilinogen Dipstick 12 A Urine Leukocytes MODERATE A Urine WBC (Auto) TNTC A Urine RBC (Auto) TNTC A U Epithel Cells (Auto) <10 Urine Bacteria (Auto) 4+ Urine Crystals Not Reportable Small Round Cells Not Reportable Urine Casts Not Reportable Urine Yeast-like Cells PRESENT Urine Osmolality Ur Random Sodium Urine Opiates Screen Ur Oxycodone Screen Ur Methadone, Qual Ur Barbiturates Screen Ur Phencyclidine Scrn Ur Amphetamines Screen U Benzodiazepines Scrn Urine Cocaine Screen U Cannabinoids Screen 04/28/18 04/28/18 04/28/18 01:20 01:20 03:56 WBC RBC Hgb Hct MCV MCH MCHC RDW Std Deviation Plt Count MPV Immature Gran % (Auto) Neut % (Auto) Lymph % (Auto) [place] % (Auto) Eos % (Auto) Baso % (Auto) Immature Gran # (Auto) Neut # (Auto) Lymph # (Auto) [place] # (Auto) Eos # (Auto) Baso # (Auto) PT INR PTT (Actin FS) Specimen Type ARTERIAL Sample Site R RADIAL pH 7.32 L pCO2 89 H* pO2 76 HCO3 36.7 H Base Excess 15.3 H Oxyhemoglobin 93.3 L ABG O2 Sat (Calculated) 18.1 ABG O2 Saturation 96.1 ABG Carboxyhemoglobin 1.80 ABG Methemoglobin 1.1 Daniel Test YES A-a O2 Difference 98.0 Total Hemoglobin 13.8 Lactate 0.70 Liter Flow 5.0 Blood Gas Modality [place] FiO2 % 40.0 Sodium Potassium Chloride Carbon Dioxide Anion Gap BUN Creatinine Estimated GFR/1.73 m2 BUN/Creatinine Ratio Glucose POC Glucose Serum Osmolality Calculated Osmolality Calcium Total Bilirubin AST ALT Alkaline Phosphatase Troponin T Slc-K-Fdxoqpxkvai Pept Total Protein Albumin Globulin Albumin/Globulin Ratio Urine Source Urine Color Urine Turbidity Urine pH Ur Specific [place] Urine Protein Ur Glucose (Stick) Ur Ketones (Stick) Urine Blood Urine Nitrite Urine Bilirubin Urobilinogen Dipstick Urine Leukocytes Urine WBC (Auto) Urine RBC (Auto) U Epithel Cells (Auto) Urine Bacteria (Auto) Urine Crystals Small Round Cells Urine Casts Urine Yeast-like Cells Urine Osmolality 590 Ur Random Sodium 27 Urine Opiates Screen Ur Oxycodone Screen Ur Methadone, Qual Ur Barbiturates Screen Ur Phencyclidine Scrn Ur Amphetamines Screen U Benzodiazepines Scrn Urine Cocaine Screen U Cannabinoids Screen Orders Category Date Time Status Admit - [facility] Routine AdmDCTranf 04/28/18 05:32 Active Activity - Up with Assistance ORDERED Care 04/28/18 05:32 Active Cardiac Monitoring DIRECTED Care 04/27/18 21:20 Completed Elevate Head of Bed DIRECTED Care 04/28/18 05:32 Active FSBS/Accucheck Result AC + HS Care 04/28/18 05:32 Active Finger Stick Blood Sugar (ED) DIRECTED Care 04/27/18 21:20 Completed Intake and Output-Strict ORDERED Care 04/28/18 05:32 Active Misc. NRSG Communication Order DIRECTED Care 04/27/18 21:20 Inactive Nursing- Assist w/ IS as order ORDERED Care 04/28/18 05:32 Completed Oxygen Therapy- ED Nursing DIRECTED Care 04/27/18 21:20 Completed Saline Loc NOW Care 04/27/18 21:20 Completed Update & Confirm Home Medicati NOW Care 04/28/18 04:09 Completed Vital Signs Order Q 4-HR ASSESS Care 04/28/18 05:32 Active Z-Document. for Tele Applied ORDERED Care 04/28/18 05:32 Completed Diabetic Diet Diet 04/28/18 04:10 Active CHEST-PORTABLE [RAD] Stat Exams 04/27/18 21:[address] HEAD W/O CONTRAST [CT] Stat Exams 04/27/18 21:20 Completed ABG [RESP] Routine Lab 04/28/18 03:56 Completed BASIC METABOLIC PANEL [CHEM] Routine Lab 04/28/18 06:35 Completed CBC WITH DIFF [HEME] Routine Lab 04/28/18 06:35 Completed CBC WITH ELECTRONIC DIFF [HEME] Stat Lab 04/27/18 22:31 Completed CK PROFILE [SP CHEM] Q8H Lab 04/28/18 06:35 Completed CK PROFILE [SP CHEM] Q8H Lab 04/28/18 14:26 Completed COMPREHENSIVE METABOLIC PANEL [CHEM] Stat Lab 04/27/18 22:31 Completed MAGNESIUM [CHEM] Routine Lab 04/28/18 06:35 Completed PRO B-NATRIURETIC PEPTIDE Stat Lab 04/28/18 04:09 Completed PROTIME WITH INR [COAG] Stat Lab 04/27/18 22:31 Completed PTT [COAG] Stat Lab 04/27/18 22:31 Completed SERUM OSMOLALITY [CHEM] Stat Lab 04/28/18 04:09 Completed TROPONIN T Q8H Lab 04/28/18 06:35 Completed TROPONIN T Q8H Lab 04/28/18 14:26 Completed TROPONIN T Stat Lab 04/27/18 22:31 Completed UR SODIUM [URCHEM] Stat Lab 04/28/18 01:20 Completed URINALYSIS W/POSS RFLX CULT [URINALYSIS] Stat Lab 04/28/18 01:20 Completed URINE CULTURE [RM] Routine Lab 04/28/18 01:48 Received URINE DRUG SCREEN Stat Lab 04/27/18 01:20 Completed URINE MANUAL MICROSCOPIC [URINALYSIS] Stat Lab 04/28/18 01:20 Completed 0.9% Sodium Chloride Inj [Ns] 50 ml Med 04/28/18 04:31 Discontinued .ROUTE As Directed Acetaminophen [Tylenol] Med 04/28/18 05:32 Active 650 mg PO Q6H PRN PRN CefTRIAXONE [Rocephin] Med 04/28/18 02:55 Discontinued 1 gm IV NOW ONE CefTRIAXONE [Rocephin] 1 gm Med 04/29/18 04:30 Discontinued 0.9% Sodium Chloride Inj [Ns] 50 ml IV Q24H Ondansetron [Zofran] Med 04/28/18 05:32 Active 4 mg IV Q4-6H PRN PRN BIPAP Stat Oth 04/28/18 04:12 Active Incentive Spirometer Routine Oth 04/28/18 05:32 Completed Oxygen Device Routine Oth 04/28/18 05:32 Completed Pulse Oximetry Routine Oth 04/28/18 05:32 Completed Telemetry [OM.EQ] Routine Oth 04/28/18 05:32 Active EKG [EKG] Stat Ther 04/27/18 21:20 Ordered Transfer/Admit Order [TRANSFER] Routine Transfer 04/28/18 04:00 Completed Result Diagrams: 04/28/18 06:35 04/28/18 17:00 - EKG 1 Time of EKG reading by physician:: 22:41 EKG Read and Signed by:: Farzana Vanessa EKG Interpretation (*Must complete 3 of following elements*): Abnormal (rhythm - sinus rhythm with 1st degree AV block with blocked premature atrial complexes) Rate: 67 Comments: nonspecific intraventricular block - XRAY 1 XRAY Study: Chest Impression: See EMR Report (EXAM: CHEST-PORTABLE 04/27/2018 HISTORY: stroke like symptoms TECHNIQUE: AP portable semierect chest at 2135 COMMENT: There is left ventricular enlargement. The pulmonary vascularity is increased. There is some atelectasis or pneumonia in the right lower lobe. This is worse than on 09/13/2016. IMPRESSION: Cardiomegaly. Pulmonary vascular and coarse bent and right lower lobe atelectasis. Electronically signed by Misbah Shaikh 2017 9:38 PM 04/27/182137 Interpreting Physician: Misbah Shaikh MD Dictated Date/Time: 04/27/182136 cc: Farzana Vanessa MD;) - CT/MRI 1 CT Study: Head Impression: See EMR Report (EXAM: CT HEAD W/O CONTRAST 04/27/2018 HISTORY: stroke like symptoms TECHNIQUE: This exam was performed using automated exposure control, adjustment of mA or kV according to patient size, and/or use of iterative reconstruction technique. COMMENT: There are some patchy lucencies present in the subcortical white matter of the left frontal and parietal lobes. There is no evidence of mass effect, bleed, abnormal extra- axial fluid collection, or hydrocephalus. There is persistence of the metopic suture and hyperostosis frontalis interna. The calvarium is intact. IMPRESSION : No evidence of acute intracranial disease. Chronic ischemic microvascular white matter changes. Electronically signed by Misbah Shaikh 04/27/2018 9: 36 PM 04/27/182135 Interpreting Physician: Misbah Shaikh MD Dictated Date/Time: 04/27/182133 cc: Farzana Vanessa MD;) Departure - Departure Date of Disposition Decision: 04/28/18 Time of Disposition Decision: 03:00 DIAGNOSIS: Dyspnea, UTI (urinary tract infection), Altered mental status Disposition: HOME 01 Certified Medical Emergency: Emergent Condition: Good - Critical Care Note This patient required my direct & personal management of CC.: Yes Total Time (mins): 30 Critical Care Statement: This patient required my direct personal management to treat or rule out processes, the absence of which, could potentiallly result in sudden, clinically significant life or limb threatening deterioration. Attestation - Physician/ NEYMAR Attestation Patient care was provided by Advanced Practice Provider:: No The physician spent face to face time with patient:: Yes Advanced Practice Provider documentation review:: Supervising physician onsite and consulted in the evaluation and care of this patient. The physician did have a face to face encounter with the patient. - NIH Stroke Scale Level of Consciousness: 0-Alert LOC Questions (ask month and age): 0-Answers Both Correctly LOC Commands (ask to open & close eyes;make a fist, let go): 0-Obeys Both Correctly Best Gaze (horizontal eye movement): 0-Normal Visual (use finger movement, counting or visual threat): 0-No Visual Loss Facial Palsy (show teeth or raise eyebrows & close eyes tght: 0-Symmetrical Movement Motor Function-left arm: 0-Normal Motor Function-right arm: 0-Normal Motor Function-left le-Normal Motor Function-right le-Normal Limb Ataxia(oxbgzh-hnto-ltirrz, or heel to wesley): 0-No Ataxia Sensory(pin prick to face,arms,trunk,legs-compare side/side): 0-No Ataxia Best Language(name item/read sentence.Ex-Down to Earth): 0-No Aphasia Dysarthria(Pt read words or say words Ex.Mama,Tip-Top,Thanks: 0-Normal Articulation Extinction and Inattention: 0-Normal NIH Total Score: 0 This chart was documented by the indicated scribe, (Janeen Pryor, Adrian) and accurately reflects the services I performed and decisions made by me, Farzana Vanessa MD, as attested by the provider's signature.
[2018-04-28] MEDS ORDERED: LASIX PO SCH (21:00)
[2018-04-28] MEDS: FLOMAX PO SCH (21:09)
[2018-04-28] MEDS: MIRALAX PO SCH (21:19)
[2018-04-28] MEDS: COLACE PO SCH (21:19)
[2018-04-29] MEDS: NS 1,000 ML IV SCH (01:11)
[2018-04-29] MEDS: DUONEB (A & A) INH SCH ×5 (03:53→22:41)
[2018-04-29 04:30] LABS: ALLEN TEST YES; BE 13.5 mmoll (-3.0-3.0); BLOOD TYPE ARTERIAL; HCO3-(ACT) 35.3 mmoll (20.0-26.0); METHB 1.1 % (0.0-1.5); O2(CT) 17.3 mL/dL (15.0-23.0); O2HB 93.1 % (95.0-99.0); PO2(98.6) 65 mmHg (60-100); SAMPLE BLOOD; THB 13.2 g/dL (11.5-17.4); pH(98.6) 7.36 (7.35-7.45)
[2018-04-29] MEDS ORDERED: ROCEPHIN 1 GM in NS 50 ML IV SCH (04:30)
[2018-04-29 04:33] LABS: MODALITY CANNULA; PCO2(98.6) 75 mmHg (35-45)
[2018-04-29] MEDS: HUMALOG SUBQ SCH ×4 (06:14→20:52)
[2018-04-29 07:17] LABS: BASO# 0.01 X1000 (0.0-0.2); BASO% 0.1 % (0.0-0.8); EOS# 0.14 X1000 (0.0-0.7); EOS% 1.5 % (0.0-10.0); HEMOGLOBIN 13.1 g/dL (14.0-18.0); IMM GRAN# 0.05 X1000 (0.0-0.04); IMM GRAN% 0.5 % (0.0-0.5); LYMPH# 2.08 X1000 (1.2-3.4); LYMPH% 22.6 % (20.5-51.1); MCH 27.8 PG (27-31); MONO# 0.56 X1000 (0.11-0.59); MONO% 6.1 % (1.7-9.3); MPV 9.1 FL (7.4-10.4); NEUT# 6.36 X1000 (1.4-6.5); NEUT% 69.2 % (42.2-75.2); PLT 194 X1000 (130-400); RBC 4.71 XMIL (4.7-6.1); RDW 12.2 % (11.5-14.5)
[2018-04-29 07:48] LABS: AGAP 4; BUN 8 mg/dL (8-22); CALCIUM 7.9 mg/dL (8.8-10.2); CHLORIDE 76 mmol/L (98-107); COSMO 241; CREATININE 0.6 mg/dL (0.7-1.2); ESTIMATED GFR > 60; GLUCOSE 109 mg/dL (70-104); POTASSIUM 3.8 mmol/L (3.5-5.1); TCO2 40 mmol/L (25-35)
[2018-04-29 08:01] LABS: SODIUM 121 mmol/L (136-145)
--- NOTE | 2018-04-29 08:01 | Diag Imaging Result Doc PS360 ---
EXAM: CHEST-PORTABLE INDICATION: dyspnea TECHNIQUE: One view COMPARISON: 04/28/2018 FINDINGS: There is increasing opacity at the right lung base suggesting worsening infiltrate. Pulmonary venous congestion and interstitial thickening suggesting mild edema is stable. No other new consolidations are identified. Cardiac silhouette is stable. IMPRESSION: Worsening infiltrate at the right lung base. Electronically signed by Salvador Pavon 04/29/2018 7:59 AM
[2018-04-29] MEDS ORDERED: SAMSCA PO ONE (08:11)
[2018-04-29] MEDS: MIRALAX PO SCH ×2 (09:32→20:56)
[2018-04-29] MEDS: DIFLUCAN PO SCH (09:33)
[2018-04-29] MEDS: MAXIPIME 1 GM in NS 50 ML IV SCH (09:33)
[2018-04-29] MEDS: FOLIC ACID PO SCH ×2 (09:33→20:51)
[2018-04-29] MEDS: COLACE PO SCH ×2 (09:33→20:52)
[2018-04-29] MEDS: FIBERCON PO SCH (09:33)
[2018-04-29] MEDS: ICAR-C PO SCH ×2 (09:33→20:52)
[2018-04-29] MEDS: CULTURELLE PO SCH ×2 (09:33→20:55)
[2018-04-29] MEDS: THERA M PLUS PO SCH ×2 (09:33→20:51)
[2018-04-29] MEDS: PEPCID PO SCH ×2 (09:33→20:52)
[2018-04-29] MEDS: REQUIP PO SCH ×3 (09:33→20:51)
[2018-04-29] MEDS: CARDIZEM CD PO SCH (09:33)
[2018-04-29] MEDS: ZYVOX 600 MG/D5W 600 MG/300 ML IVPB IV SCH (10:22)
[2018-04-29] MEDS: XARELTO PO SCH (16:18)
--- NOTE | 2018-04-29 19:52 | PROGRESS NOTE ---
DATE: 04/29/2018 SUBJECTIVE: The patient is more awake and alert today. He has no complaints at this time. OBJECTIVE: Vital Signs: Temperature 97.8, blood pressure 130/76, heart rate 81 , respirations 16, O2 sats 94% on 4 L nasal cannula. Urine output 1.2 L. General: This is a morbidly obese male lying in bed in no acute distress. Heart: S1, S2 normal. Regular rate and rhythm. Lungs: Equal air entry bilaterally. Crackles in the right lung base. No wheezing. Abdomen: Positive bowel sounds. Soft, obese, nontender, nondistended. Extremities: 1+ edema. No cyanosis. No calf tenderness. Neurologic: The patient is alert and oriented x 3. No focal neurologic deficits noted. LABS: White blood cell count 9.2, hemoglobin 13, hematocrit 41, platelets 194, 000. ABG: PH of 7.36, pCO2 75, pO2 65, bicarb 35. Sodium 120, potassium 3.8, chloride 76, CO2 40, BUN 8, creatinine 0.6, glucose 109, calcium 7.9, cortisol 10. Chest x-ray shows worsening infiltrate at the right lung base. ASSESSMENT AND PLAN: 1. Acute on chronic hypercapnic and hypoxemic respiratory failure. The patient has pneumonia and mild pulmonary edema. We will continue to treat these underlying issues. BIPAP at night. 2. Pneumonia. We will increase the cefepime dosage to 2 g IV q.12. Continue on Zyvox. Continue incentive spirometry and bronchodilator therapy. 3. Hyponatremia. The patient did not respond to 24 hours of normal saline infusion. We will give the patient a dose of [place] and continue to monitor the sodium closely. 4. Morbid obesity. Aware. 5. Paroxysmal atrial fibrillation. The patient is rate controlled. Continue on the current treatment regimen. 6. 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 7. Diabetes mellitus type 2. Continue on sliding scale insulin. 8. DOMINIK. Aware. 8. Constipation. Continue with scheduled laxative therapy. cc: Mae Long MD MTDD
--- NOTE | 2018-04-29 19:55 | ECHO REPORT ---
ORDER DATE: 04/29/2018 ECHOCARDIOGRAM: INDICATION: 1. CHF. 2. Altered mental status. 3. Morbid obesity. FINDINGS: 1. The right atrium was difficult to visualize on this patient secondary to his body habitus. He weighs 375 pounds. 2. Mild tricuspid regurgitation. RV systolic pressure of 41. 3. Right ventricle was difficult to visualize, but appears to have normal function and suggested to be mildly enlarged. 4. No significant pulmonic insufficiency. 5. At least moderate left atrial enlargement with a dimension of 5.5 cm. 6. No mitral valve prolapse. Mild mitral regurgitation. 7. The left ventricle was dilated with an end-diastolic dimension of 6.9 cm. There is mild left ventricular hypertrophy with a posterior and interventricular septal wall thickness of 1.3 cm each. Borderline normal LV systolic function with an estimated EF of 50% to 55%. Wall motion was extremely difficult in this patient due to body habitus. Definity echo contrast was used. Compared to his last echo in August 2016, the end-diastolic dimension, wall thickness and ejection fraction appear similar. 8. Aortic valve opens well. I do not see any significant degree of stenosis or insufficiency. 9. Aorta appears to be 4 cm in diameter in the visualized section. This is consistent with his last echo in August 2016. 10. No pericardial effusion identified. cc: MD Mae Simon MD
[2018-04-29] MEDS: FLOMAX PO SCH (20:52)
[2018-04-29] MEDS: MAXIPIME 2 GM in NS 100 ML IV SCH (20:56)
[2018-04-29] MEDS: ZYVOX PO SCH (20:56)
[2018-04-30] MEDS: DUONEB (A & A) INH SCH ×4 (03:03→22:48)
[2018-04-30 05:20] LABS: ALLEN TEST YES; BE 12.8 mmoll (-3.0-3.0); BLOOD TYPE ARTERIAL; HCO3-(ACT) 34.7 mmoll (20.0-26.0); METHB 0.9 % (0.0-1.5); O2(CT) 17.1 mL/dL (15.0-23.0); PO2(98.6) 57 mmHg (60-100); SAMPLE BLOOD; SAO2 91.9 % (95.0-100.0); THB 13.6 g/dL (11.5-17.4); pH(98.6) 7.32 (7.35-7.45)
[2018-04-30 05:23] LABS: MODALITY BI PAP
[2018-04-30 05:24] LABS: PCO2(98.6) 83 mmHg (35-45)
[2018-04-30 05:28] LABS: O2HB 89.6 % (95.0-99.0)
[2018-04-30] MEDS ORDERED: SAMSCA PO ONE (06:00)
[2018-04-30] MEDS: HUMALOG SUBQ SCH ×4 (06:30→21:01)
--- NOTE | 2018-04-30 07:12 | EKG Report ---
Test Performed on : 04/27/2018 10:41:28 PM Test Reason : Stroke like symptoms Blood Pressure : / mmHG Vent. Rate : 067 BPM Atrial Rate : 067 BPM P-R Int : 250 ms QRS Dur : 134 ms QT Int : 420 ms P-R-T Axes : 040 -22 015 degrees QTc Int : 443 ms Sinus rhythm. with 1st degree AV block. with blocked premature atrial complexes. Nonspecific intraventricular block Abnormal ECG When compared with ECG of 06-SEP-2016 13:14, premature atrial complexes. are now present Unconfirmed Result
--- NOTE | 2018-04-30 07:19 | Diag Imaging Result Doc PS360 ---
EXAM: CHEST-PORTABLE 04/30/2018 HISTORY: pneumonia TECHNIQUE: AP portable at 0542 COMMENT: There is some alveolar opacity in the right lower lobe. The inspiration is suboptimal. The heart size is enlarged. There is questionable interstitial pulmonary edema. Compared to 04/29/2018 there has been no appreciable change. IMPRESSION: Atelectasis versus pneumonia right lower lobe. Cardiomegaly and questionable pulmonary edema. Electronically signed by Misbah Shaikh 04/30/2018 7:17 AM
[2018-04-30 07:27] LABS: BASO# 0.01 X1000 (0.0-0.2); BASO% 0.1 % (0.0-0.8); EOS# 0.09 X1000 (0.0-0.7); HEMATOCRIT 41.3 % (42.0-52.0); HEMOGLOBIN 13.1 g/dL (14.0-18.0); IMM GRAN# 0.06 X1000 (0.0-0.04); IMM GRAN% 0.7 % (0.0-0.5); LYMPH# 1.83 X1000 (1.2-3.4); LYMPH% 20.4 % (20.5-51.1); MCH 27.6 PG (27-31); MCHC 31.7 g/dL (33-37); MCV 87.1 FL (81-99); MONO# 0.69 X1000 (0.11-0.59); MONO% 7.7 % (1.7-9.3); NEUT# 6.31 X1000 (1.4-6.5); NEUT% 70.1 % (42.2-75.2); PLT 175 X1000 (130-400); RBC 4.74 XMIL (4.7-6.1); RDW 12.1 % (11.5-14.5); WBC 8.99 X1000 (4.8-10.8)
[2018-04-30 07:42] LABS: ESTIMATED GFR > 60
[2018-04-30 07:55] LABS: AGAP 6; BUN 8 mg/dL (8-22); CALCIUM 8.5 mg/dL (8.8-10.2); CHLORIDE 79 mmol/L (98-107); COSMO 245; CREATININE 0.5 mg/dL (0.7-1.2); GLUCOSE 111 mg/dL (70-104); SODIUM 122 mmol/L (136-145); TCO2 37 mmol/L (25-35)
[2018-04-30] MEDS: MIRALAX PO SCH ×2 (09:26→20:47)
[2018-04-30] MEDS: MAXIPIME 2 GM in NS 100 ML IV SCH ×2 (09:26→21:50)
[2018-04-30] MEDS: ICAR-C PO SCH ×2 (09:27→20:47)
[2018-04-30] MEDS: COLACE PO SCH ×2 (09:27→20:47)
[2018-04-30] MEDS: DIFLUCAN PO SCH (09:27)
[2018-04-30] MEDS: FIBERCON PO SCH (09:27)
[2018-04-30] MEDS: THERA M PLUS PO SCH ×2 (09:27→20:47)
[2018-04-30] MEDS: CULTURELLE PO SCH ×2 (09:27→20:47)
[2018-04-30] MEDS: FOLIC ACID PO SCH ×2 (09:27→20:47)
[2018-04-30] MEDS: CARDIZEM CD PO SCH (09:28)
[2018-04-30] MEDS: REQUIP PO SCH ×3 (09:28→17:45)
[2018-04-30] MEDS: ZYVOX PO SCH ×2 (09:28→20:47)
[2018-04-30] MEDS: PEPCID PO SCH ×2 (09:28→20:47)
--- NOTE | 2018-04-30 12:05 | NEPHROLOGY CONSULTATION ---
DATE: 04/30/2018 REASON FOR CONSULTATION: Hyponatremia. HISTORY OF PRESENT ILLNESS: Mr. Velez is a 68-year-old white male who lives alone. He uses supplemental oxygen but no CPAP or BiPAP. He came in the hospital because he was feeling weak and dizzy. He did not fall but he had several episodes that he described as close calls. He has experienced worsening edema. Shortness of breath has been somewhat worse as well. In this context, his initial laboratory data found a sodium 122. He has been basically stable since admission with sodium ranging from 119 to 122 despite any intervention. Urine electrolytes have been checked on at least 2 occasions, both with high urine osmolality and low serum sodium. He has had no response to low dose tolvaptan 15 mg. He has significant CO2 retention which appears to be chronic. PAST MEDICAL HISTORY: As above. He also has diabetes, hypertension, obesity, paroxysmal atrial fibrillation, history of DVT/PTE. HOME MEDICATIONS: Are reviewed as listed. ALLERGIES: None. SOCIAL HISTORY: As above. FAMILY HISTORY: Otherwise noncontributory. REVIEW OF SYSTEMS: Otherwise noncontributory. PHYSICAL EXAMINATION: Vital Signs: Blood pressure 134/78, heart rate 76, afebrile. Generally: He is a morbidly obese, white male, on BiPAP, but in no acute distress. Skin: Warm and dry. HEENT: Conjunctivae are pink. Pupils are equal. Oropharynx is dry. Dentition normal. Tongue normal. Neck: Supple. Trachea is midline. No jugular venous distention. Cardiovascular: PMI not palpable. Regular rhythm. No gallops or rubs. Lungs: Have equal excursion. Equal breath sounds. No crackles or wheezes. Abdomen: Soft, obese, nontender. Bowel sounds are present. Extremities: Have 3+ edema extending up onto the flanks. No clubbing or cyanosis. IMPRESSION: Hyponatremia in the context of gross volume overload. Presumably this is secondary to salt and water retention in the context of obesity hypoventilation syndrome. He has better urine output since he was started on BiPAP. Continue that therapy. I will also add furosemide 80 mg twice daily and observe his response. If tolvaptan is used it will likely need to be used at the higher 30 mg dose. I will not order that at this time but watch his clinical response to the above. cc: Jose Yi MD
[2018-04-30] MEDS: LASIX IV SCH ×2 (14:02→23:01)
[2018-04-30] MEDS: SAMSCA PO SCH (17:45)
[2018-04-30] MEDS: XARELTO PO SCH (17:45)
--- NOTE | 2018-04-30 17:57 | PROGRESS NOTE ---
DATE: 04/30/2018 SUBJECTIVE: The patient reports feeling fine. Denies any shortness of breath at rest. OBJECTIVE: Vital Signs: Temperature 98 degrees, heart rate 76, respiratory 18, blood pressure 134/78, O2 saturation 94% on 5 L nasal cannula. General: This is a morbidly obese with BMI 52.1 chronically ill-looking 68-year-old male lying in bed in no acute distress. Cardiovascular: S1, S2 heard. No murmurs, gallops, or rubs. Regular rate and rhythm. Respiratory: Crackles in right pulmonary base, patient not using any accessory muscles or having work of breathing. Abdomen: Soft, nontender to palpation. Bowel sounds present. No organomegaly. Extremities: No clubbing, cyanosis, or edema. Peripheral pulses present in both legs. Neurological: The patient is alert, oriented x3. Moves 4 extremities. LABORATORY DATA: The CBC is okay, BMP shows pH 7.32, with pCO2 83, sodium 122, normal renal function. ASSESSMENT AND PLAN: 1. Acute on chronic hypercapnic and hypoxemic respiratory failure. Patient CO2 is still high of 82, will continue with BiPAP, will continue with antibiotics in this case cefepime 2 g IV q.12 hours and Zyvox. 2. Community-acquired pneumonia. Will continue with IV antibiotics and breathing treatment and also incentive spirometry as well. 3. Hyponatremia, patient's sodium is still the same. We are going to add tolvaptan 30 mg p.o. daily for 3 days. Nephrology has been consulted as well. We appreciate help. 4. Morbid obesity aware. 5. Paroxysmal atrial fibrillation. Will continue with current management. Heart rate is definitely much well controlled. 6. History of deep venous thrombosis and pulmonary edema. We will continue with Xarelto. 7. Diabetes mellitus type 2. Will continue with sliding scale insulin and Accu-Chek before meals and also at bedtime. 8. Obstructive sleep apnea aware. 9. Constipation. Patient receiving laxatives in a daily basis. cc: Yuriy Schwarz MD
[2018-04-30] MEDS: FLOMAX PO SCH (20:47)
[2018-05-01] MEDS: DUONEB (A & A) INH SCH ×4 (04:33→19:15)
[2018-05-01] MEDS: HUMALOG SUBQ SCH ×4 (06:25→21:40)
[2018-05-01 07:23] LABS: ESTIMATED GFR > 60
[2018-05-01 07:31] LABS: AGAP 7; BUN 8 mg/dL (8-22); CALCIUM 8.8 mg/dL (8.8-10.2); CHLORIDE 78 mmol/L (98-107); COSMO 257; CREATININE 0.5 mg/dL (0.7-1.2); GLUCOSE 128 mg/dL (70-104); POTASSIUM 3.8 mmol/L (3.5-5.1); SODIUM 128 mmol/L (136-145); TCO2 43 mmol/L (25-35)
[2018-05-01] MEDS: REQUIP PO SCH ×3 (09:21→20:13)
[2018-05-01] MEDS: SAMSCA PO SCH (09:21)
[2018-05-01] MEDS: COLACE PO SCH ×2 (09:22→20:10)
[2018-05-01] MEDS: THERA M PLUS PO SCH ×2 (09:22→20:10)
[2018-05-01] MEDS: FIBERCON PO SCH (09:22)
[2018-05-01] MEDS: CULTURELLE PO SCH ×2 (09:22→20:10)
[2018-05-01] MEDS: PEPCID PO SCH ×2 (09:22→20:10)
[2018-05-01] MEDS: CARDIZEM CD PO SCH (09:22)
[2018-05-01] MEDS: ZYVOX PO SCH ×2 (09:22→20:10)
[2018-05-01] MEDS: FOLIC ACID PO SCH ×2 (09:22→20:10)
[2018-05-01] MEDS: MAXIPIME 2 GM in NS 100 ML IV SCH ×2 (09:23→20:10)
[2018-05-01] MEDS: MIRALAX PO SCH ×2 (09:23→20:10)
[2018-05-01] MEDS: ICAR-C PO SCH ×2 (09:23→20:10)
[2018-05-01] MEDS: DIFLUCAN PO SCH (09:24)
[2018-05-01] MEDS: LASIX IV SCH (12:25)
[2018-05-01 12:58] LABS: ALLEN TEST YES; BE 24.2 mmoll (-3.0-3.0); BLOOD TYPE ARTERIAL; HCO3-(ACT) 43.5 mmoll (20.0-26.0); METHB 0.7 % (0.0-1.5); O2(CT) 18.2 mL/dL (15.0-23.0); PO2(98.6) 50 mmHg (60-100); SAMPLE BLOOD; SAO2 89.3 % (95.0-100.0); THB 14.9 g/dL (11.5-17.4); pH(98.6) 7.39 (7.35-7.45)
[2018-05-01 12:59] LABS: BASO# 0.02 X1000 (0.0-0.2); BASO% 0.2 % (0.0-0.8); EOS# 0.06 X1000 (0.0-0.7); EOS% 0.7 % (0.0-10.0); HEMATOCRIT 42.7 % (42.0-52.0); HEMOGLOBIN 13.4 g/dL (14.0-18.0); LYMPH# 1.26 X1000 (1.2-3.4); LYMPH% 13.7 % (20.5-51.1); MCHC 31.4 g/dL (33-37); MCV 89.1 FL (81-99); MONO# 0.73 X1000 (0.11-0.59); NEUT# 7.11 X1000 (1.4-6.5); NEUT% 77.4 % (42.2-75.2); PLT 185 X1000 (130-400); RBC 4.79 XMIL (4.7-6.1); RDW 12.6 % (11.5-14.5); WBC 9.18 X1000 (4.8-10.8)
[2018-05-01 13:02] LABS: PCO2(98.6) 92 mmHg (35-45)
[2018-05-01 13:03] LABS: MODALITY CANNULA; O2HB 87.2 % (95.0-99.0)
--- NOTE | 2018-05-01 13:59 | PROGRESS NOTE ---
DATE: 05/01/2018 SUBJECTIVE: Patient reports feeling fine. Denies any shortness of breath. Actually, the patient does not seem to understand his current clinical situation. OBJECTIVE: Vital Signs: Temperature 97.8 degrees, heart rate 95, respiratory rate 22, blood pressure 131/92, O2 saturation 93% on 5 L nasal cannula. General examination : This is a chronically ill looking and extremely morbidly obese, 68-year-old male with BMI of 52, lying in bed, in no acute distress. HEENT: Head is normocephalic, atraumatic. Cardiovascular: S1, S2 heard. No murmurs, gallops, or rubs. Regular rate and rhythm. Respiratory: Crackles in right pulmonary base still present but patient is not using any accessory muscles or having work of breathing. Abdomen: Soft. Nontender to palpation. Bowel sounds present. No organomegaly. Extremities: No clubbing, cyanosis, or edema. Peripheral pulses present in both legs. Neurological: Patient is alert and oriented x3. Moves 4 extremities. LABORATORY DATA: Reviewed. CBC is okay. ABG shows pH 7.39 with pCO2 92. Sodium 128. ASSESSMENT AND PLAN: 1. Acute on chronic hypercapnic and hypoxemic respiratory failure. Unfortunately, patient is not using BiPAP. CO2 is elevated at 92. At this point, he has been educated about the paramount importance to use BiPAP. We will continue with the same management. 2. Community-acquired pneumonia. Patient is on Zyvox and cefepime. We will continue with the same management. We will continue with breathing treatments, in this case DuoNeb every 4 hours scheduled. 3. Hyponatremia. Sodium is getting better, from 122 to 128. At this point, we will continue with tolvaptan 30 mg for 2 more days and check BMP daily. 4. Paroxysmal atrial fibrillation. We will continue with current management. Heart rate is much better controlled. 5. History of deep venous thrombosis and pulmonary edema. We will continue Xarelto. 6. Diabetes mellitus type 2. We will continue with sliding scale insulin. Accu -Chek before meals and also at bedtime. 7. Obstructive sleep apnea. Aware. 8. Constipation. The patient will receive laxatives on a daily basis. 9. Disposition. We will continue to monitor this patient closely. cc: MD JAY Gipson
[2018-05-01] MEDS: XARELTO PO SCH (17:28)
[2018-05-01] MEDS: FLOMAX PO SCH (20:10)
[2018-05-02] MEDS: LASIX IV SCH (00:07)
[2018-05-02] MEDS: DUONEB (A & A) INH SCH ×4 (03:40→21:10)
[2018-05-02 05:11] LABS: ALLEN TEST YES; BE 23.5 mmoll (-3.0-3.0); BLOOD TYPE ARTERIAL; METHB 0.5 % (0.0-1.5); O2(CT) 19.2 mL/dL (15.0-23.0); O2HB 90.6 % (95.0-99.0); PO2(98.6) 59 mmHg (60-100); SAMPLE BLOOD; SAO2 92.5 % (95.0-100.0); THB 15.1 g/dL (11.5-17.4); pH(98.6) 7.37 (7.35-7.45)
[2018-05-02 05:12] LABS: MODALITY BI PAP; PCO2(98.6) 96 mmHg (35-45)
[2018-05-02] MEDS: HUMALOG SUBQ SCH ×4 (06:10→23:06)
[2018-05-02 06:48] LABS: BASO# 0.03 X1000 (0.0-0.2); BASO% 0.3 % (0.0-0.8); EOS# 0.05 X1000 (0.0-0.7); EOS% 0.5 % (0.0-10.0); HEMATOCRIT 46.7 % (42.0-52.0); HEMOGLOBIN 14.3 g/dL (14.0-18.0); IMM GRAN# 0.05 X1000 (0.0-0.04); IMM GRAN% 0.5 % (0.0-0.5); LYMPH# 1.57 X1000 (1.2-3.4); LYMPH% 16.3 % (20.5-51.1); MCH 27.6 PG (27-31); MCHC 30.6 g/dL (33-37); MCV 90.2 FL (81-99); MONO# 0.88 X1000 (0.11-0.59); MONO% 9.1 % (1.7-9.3); NEUT# 7.04 X1000 (1.4-6.5); NEUT% 73.3 % (42.2-75.2); PLT 199 X1000 (130-400); RBC 5.18 XMIL (4.7-6.1); RDW 12.7 % (11.5-14.5); WBC 9.62 X1000 (4.8-10.8)
[2018-05-02 07:04] LABS: ESTIMATED GFR > 60
[2018-05-02 07:17] LABS: AGAP 9; BUN 11 mg/dL (8-22); CALCIUM 9.1 mg/dL (8.8-10.2); CHLORIDE 79 mmol/L (98-107); COSMO 271; CREATININE 0.6 mg/dL (0.7-1.2); GLUCOSE 126 mg/dL (70-104); POTASSIUM 3.8 mmol/L (3.5-5.1); SODIUM 135 mmol/L (136-145); TCO2 47 mmol/L (25-35)
[2018-05-02] MEDS: FIBERCON PO SCH (08:36)
[2018-05-02] MEDS: FOLIC ACID PO SCH ×2 (08:36→20:17)
[2018-05-02] MEDS: PEPCID PO SCH ×2 (08:36→20:17)
[2018-05-02] MEDS: REQUIP PO SCH ×3 (08:36→16:08)
[2018-05-02] MEDS: ICAR-C PO SCH ×2 (08:36→20:17)
[2018-05-02] MEDS: COLACE PO SCH ×2 (08:36→20:18)
[2018-05-02] MEDS: MIRALAX PO SCH ×2 (08:37→20:18)
[2018-05-02] MEDS: DIFLUCAN PO SCH (08:37)
[2018-05-02] MEDS: ZYVOX PO SCH ×2 (08:37→20:17)
[2018-05-02] MEDS: SAMSCA PO SCH (08:37)
[2018-05-02] MEDS: CARDIZEM CD PO SCH (08:37)
[2018-05-02] MEDS: CULTURELLE PO SCH ×2 (08:37→20:17)
[2018-05-02] MEDS: MAXIPIME 2 GM in NS 100 ML IV SCH ×2 (08:37→20:17)
[2018-05-02] MEDS: THERA M PLUS PO SCH ×2 (08:47→20:17)
--- NOTE | 2018-05-02 09:43 | NEPHROLOGY PROGRESS NOTE ---
DATE: 05/02/2018 SUBJECTIVE: He is feeling much better today. He is not wearing his BiPAP mask currently. No shortness of breath, nausea or vomiting. OBJECTIVE: Vital signs: Blood pressure 151/95, heart rate 83, respiration 19, afebrile. General: No acute distress. Skin: Warm and dry. Eyes: Conjunctivae are pink. Neck: Neck veins are not distended. Heart: Regular. No gallops. Lungs: Equal. No crackles or wheezes. Abdomen: Soft, nontender. Bowel sounds present. Extremities: With 1+ edema. No clubbing or cyanosis. INPUT AND OUTPUT: Intake 550 mL. Output 5 L. IMPRESSION: Hyponatremia in the context of volume overload. Sodium is normal now and volume status is much improved. I will stop the IV Lasix and begin p.o. Lasix 40 mg once daily. I will sign off, but if I can be of further assistance, please do not hesitate to call. cc: Jose Yi MD
[2018-05-02] MEDS: XARELTO PO SCH (16:08)
[2018-05-02] MEDS: FLOMAX PO SCH (20:17)
[2018-05-03] MEDS: DUONEB (A & A) INH SCH ×4 (03:35→21:20)
--- NOTE | 2018-05-03 04:20 | PROGRESS NOTE ---
DATE: 05/02/2018 SUBJECTIVE: The patient was seen and examined by myself. The patient notes that he is doing okay. He is still having some episodes of confusion, still refusing to wear a BiPAP although he does states that he wore a BiPAP for a short period of time last night. Denies any chest pain or palpitations. OBJECTIVE: Vital Signs: Temperature 97.8, pulse 99, respiratory rate 20, BP 150/99, O2 sat 92% on 2 L. General: The patient is awake and alert. He is currently in mild respiratory distress. He is morbidly obese, chronically ill appearing. HEENT: Normocephalic. Neck: Supple. CARDIOVASCULAR: Regular rate. No murmurs. Chest: Clear. No apparent crackles. No current wheezing although decreased breath sounds bilaterally. Abdomen: Soft and nondistended. Extremities: Moves all extremities. ASSESSMENT: 1. Acute on chronic hypoxic and hypercapnic respiratory failure. The patient continues to be very noncompliant with his BiPAP. 2. Community-acquired pneumonia. Continue Zyvox and cefepime as well as DuoNebs. 3. Hyponatremia. Sodium is actually improved to 128 today. We will recheck in the a.m. He has been given Samsca. 4. Paroxysmal atrial fibrillation. 5. Diabetes type 2. 6. Sleep apnea. PLAN: We will continue Lasix, Zyvox, cefepime. I believe he is to receive 1 more dose of Samsca. We will follow. cc: Jesse Delvalle MD [facility]
[2018-05-03 04:21] LABS: ALLEN TEST YES; BE 25.2 mmoll (-3.0-3.0); BLOOD TYPE ARTERIAL; HCO3-(ACT) 44.4 mmoll (20.0-26.0); METHB 1.1 % (0.0-1.5); O2(CT) 19.6 mL/dL (15.0-23.0); O2HB 91.3 % (95.0-99.0); PO2(98.6) 66 mmHg (60-100); SAMPLE BLOOD; SAO2 93.8 % (95.0-100.0); THB 15.3 g/dL (11.5-17.4); pH(98.6) 7.33 (7.35-7.45)
[2018-05-03 04:53] LABS: MODALITY BI PAP; PCO2(98.6) 112 mmHg (35-45)
[2018-05-03 06:55] LABS: BASO# 0.02 X1000 (0.0-0.2); BASO% 0.2 % (0.0-0.8); EOS# 0.07 X1000 (0.0-0.7); EOS% 0.6 % (0.0-10.0); HEMATOCRIT 48.6 % (42.0-52.0); HEMOGLOBIN 14.6 g/dL (14.0-18.0); IMM GRAN# 0.06 X1000 (0.0-0.04); IMM GRAN% 0.5 % (0.0-0.5); LYMPH# 1.53 X1000 (1.2-3.4); LYMPH% 13.3 % (20.5-51.1); MCV 93.1 FL (81-99); MONO# 1.07 X1000 (0.11-0.59); MONO% 9.3 % (1.7-9.3); MPV 8.7 FL (7.4-10.4); NEUT# 8.79 X1000 (1.4-6.5); NEUT% 76.1 % (42.2-75.2); PLT 193 X1000 (130-400); RBC 5.22 XMIL (4.7-6.1); RDW 12.6 % (11.5-14.5); WBC 11.54 X1000 (4.8-10.8)
[2018-05-03 07:12] LABS: AGAP 5; BUN 17 mg/dL (8-22); CALCIUM 10.5 mg/dL (8.8-10.2); CHLORIDE 79 mmol/L (98-107); COSMO 271; CREATININE 0.7 mg/dL (0.7-1.2); ESTIMATED GFR > 60; GLUCOSE 129 mg/dL (70-104); POTASSIUM 4.2 mmol/L (3.5-5.1); SODIUM 134 mmol/L (136-145); TCO2 50 mmol/L (25-35)
[2018-05-03] MEDS: HUMALOG SUBQ SCH ×4 (07:26→21:01)
[2018-05-03] MEDS: MAXIPIME 2 GM in NS 100 ML IV SCH ×2 (08:34→20:57)
[2018-05-03] MEDS: CULTURELLE PO SCH ×2 (08:37→20:55)
[2018-05-03] MEDS: SAMSCA PO SCH (08:37)
[2018-05-03] MEDS: ZYVOX PO SCH ×2 (08:37→20:56)
[2018-05-03] MEDS: CARDIZEM CD PO SCH (08:37)
[2018-05-03] MEDS: MIRALAX PO SCH ×2 (08:37→20:57)
[2018-05-03] MEDS: COLACE PO SCH ×2 (08:37→20:55)
[2018-05-03] MEDS: THERA M PLUS PO SCH ×2 (08:38→20:56)
[2018-05-03] MEDS: DIFLUCAN PO SCH (08:38)
[2018-05-03] MEDS: LASIX PO SCH (08:38)
[2018-05-03] MEDS: REQUIP PO SCH ×3 (08:38→20:56)
[2018-05-03] MEDS: FOLIC ACID PO SCH ×2 (08:38→20:56)
[2018-05-03] MEDS: PEPCID PO SCH ×2 (08:38→20:55)
[2018-05-03] MEDS: FIBERCON PO SCH (08:38)
[2018-05-03] MEDS: ICAR-C PO SCH ×2 (08:38→20:55)
[2018-05-03 10:42] LABS: ALLEN TEST YES; BLOOD TYPE ARTERIAL; HCO3-(ACT) 43.5 mmoll (20.0-26.0); METHB 1.1 % (0.0-1.5); O2(CT) 18.5 mL/dL (15.0-23.0); O2HB 90.7 % (95.0-99.0); PO2(98.6) 57 mmHg (60-100); SAMPLE BLOOD; SAO2 93.5 % (95.0-100.0); THB 14.5 g/dL (11.5-17.4); pH(98.6) 7.35 (7.35-7.45)
[2018-05-03 10:44] LABS: MODALITY BI PAP
[2018-05-03 10:45] LABS: PCO2(98.6) 102 mmHg (35-45)
--- NOTE | 2018-05-03 16:19 | EKG Report ---
Test Performed on : 05/03/2018 4:14:54 PM Test Reason : md ordered Blood Pressure : / mmHG Vent. Rate : 095 BPM Atrial Rate : 095 BPM P-R Int : 212 ms QRS Dur : 128 ms QT Int : 384 ms P-R-T Axes : 036 -36 059 degrees QTc Int : 482 ms Sinus rhythm. with 1st degree AV block. with frequent premature ventricular complexes. Left axis deviation Nonspecific intraventricular block Abnormal ECG When compared with ECG of 27-APR-2018 22:41, (Unconfirmed) premature ventricular complexes. are now present premature atrial complexes. are no longer present Confirmed by Russell MORRIS, Jass Boyer ([id number]) on 05/03/2018 7:55:26 PM
[2018-05-03] MEDS: XARELTO PO SCH (17:26)
--- NOTE | 2018-05-03 20:05 | PROGRESS NOTE ---
DATE: 05/03/2018 SUBJECTIVE: Patient reports feeling more short of breath today. Labs from this morning showed elevated CO2 112. The patient as per nursing staff was using just a few hours this BiPAP. Also patient reports he was using it all night long. OBJECTIVE: Vital Signs: Temperature 99.3, heart rate 94, respiratory rate 18, blood pressure 127/92, O2 sat 93% on BiPAP machine. General: This is a chronically ill- looking and morbidly obese 68-year-old male lying in bed in no acute distress. HEENT: Head is normocephalic, atraumatic. Neck: No JVD noted. No carotid bruits. No lymphadenopathy. No thyromegaly. Cardiovascular: S1, S2 heard. No murmurs, gallops or rubs. Regular rate and rhythm. Respiratory: There are no crackles or wheezing noted in both pulmonary bases. Patient not using any accessory muscles or having work of breathing. Abdomen: Soft, nontender to palpation. Bowel sounds present. No organomegaly. Extremities: No clubbing or cyanosis. Peripheral pulses present in both legs. Neurologic: Patient is alert and oriented x 3. Moves 4 extremities. LABORATORY DATA: White cell count 11.54, hemoglobin 14.6, hematocrit 48.8, platelets 193,000. The pH shows a pH of 7.33, with pCO2 112, PO2 66. That was on BiPAP mask. Sodium 134, normal creatinine. ASSESSMENT AND PLAN: 1. Acute on chronic hypercapnic hypoxemic respiratory failure. Unfortunately the patient is not using BiPAP he is supposed to even though he reports that he is using it. CO2 continues to get higher day by day. At this point, we prefer to send him to the [facility] unit. I have recommended this patient to use BiPAP as much as he can daytime and mandatory all night long. As we mentioned before, we will transfer him to [facility]. 2. Community-acquired pneumonia. Patient is on Zyvox and cefepime. We will continue with the same medications. We will continue with breathing treatments, in this case DuoNeb every 4 hours as scheduled. 3. Hyponatremia, back to normal. 4. Paroxysmal atrial fibrillation. We will continue monitoring this patient closely. 5. History of DVT. Will continue with Xarelto. 6. Obstructive sleep apnea. Patient is supposed to use BiPAP at home and also here in the hospital. 7. Constipation. We will continue with laxatives. 8. Disposition: Patient is not doing good so will transfer him to the [facility] unit and we will monitor this patient closely. Pulmonary is also following this patient. Help appreciated. cc: Yuriy Schwarz MD [facility]
[2018-05-03] MEDS: FLOMAX PO SCH (20:55)
[2018-05-04] MEDS: DUONEB (A & A) INH SCH ×5 (03:10→23:36)
--- NOTE | 2018-05-04 04:49 | CARDIOLOGY CONSULTATION ---
DATE: 05/03/2018 CHIEF COMPLAINT ON PRESENTATION: Shortness of breath. HISTORY OF PRESENT ILLNESS: Mr. Velez is a 68-year-old male who has morbid obesity and uses supplemental oxygen at home, but apparently no other supportive breathing devices. He came to the hospital for evaluation of weakness and dizziness. Over the time of the last several days, he has experienced worsening edema. The patient is a poor historian and gives very limited and brief answers to any questions. He reports palpitations basically occurring all of the time. He could not clarify this. He has no pain complaints other than diffuse arthralgias. Since admission to the hospital, he has had pulmonology as well as nephrology consultations. PAST MEDICAL HISTORY: Significant for: 1. Morbid obesity with likely obstructive sleep apnea. 2. Severe COPD. 3. Diabetes. 4. Hypertension. 5. Paroxysmal atrial fibrillation. 6. History of DVT/pulmonary embolism. SOCIAL HISTORY: He apparently lives alone. No current tobacco use. FAMILY HISTORY: Significant for hypertension. REVIEW OF SYSTEMS: A 10-system review of systems is negative except for those things mentioned in the HPI. PHYSICAL EXAMINATION: Vital Signs: During this hospitalization, he has been afebrile. Heart rate is 94, blood pressure 127/92. Intake and output over the course of the hospitalization has been negative 12 L. However, the intake has been very poorly recorded on multiple occasions. General: He is a morbidly obese male, somewhat disheveled, in no acute distress. HEENT: Oropharynx is moist. Poor dentition. Eye examination shows pink conjunctivae and white sclerae. Neck: Examination shows no obvious thyromegaly or thyroid tenderness. Cardiovascular: He sounds to be in a regular rate and rhythm. He has no obvious murmurs. He has no S3. He has no lower extremity edema. Chest: Exam is clear bilaterally. He has no increased work of breathing. Very distant heart sounds. I did not hear any audible wheezing on examination, but, again, this is an extremely difficult study with very distant heart sounds. Extremities: Seem warm and well perfused. Abdomen: Soft, nontender. I do not see any obvious organomegaly, however, exam is significantly limited due to the patient's morbid obesity. Skin Exam: Warm and dry throughout. Neurological: He is moving all extremities well. He has no lateralizing deficits. PERTINENT DATA: He had an EKG performed on 04/27/2018 at 2241 that seemed to demonstrate a sinus rhythm with PACs. Subsequent EKG performed on 05/03/2017 at 1614 seems to show sinus rhythm with what appear to be multifocal PVCs. In addition he had a telemetry strip that showed an idioventricular rhythm at around 100 beats per minute. He had a chest x-ray performed on 04/30/2018 showing atelectasis versus pneumonia of the right lower lobe, cardiomegaly, and questionable pulmonary edema. Lab data shows white count 11.5, hematocrit 48, platelet count 193,000. ABG shows a pH of 7.35, pCO2 102, PO2 43. He is on BiPAP of 50%. Sodium 134, potassium 4.2, BUN 17, creatinine 0.7. ASSESSMENT: Mr. Velez is a 68-year-old gentleman with severe morbid obesity, likely severe CO2 retention secondary to pickwickian type situation. He had an echocardiogram performed during this hospitalization that demonstrates what appears to be a probable normal systolic function, very poor visualization of the right ventricle, and marked dilatation of the left ventricle. PLAN: I do not have any acute recommendations in this patient. I certainly would continue attempts at diuresis in this patient as he seems to be diuresing well on the current oral Lasix. His renal function seems to be maintaining. He is maintaining sinus rhythm. I believe his idioventricular rhythm is likely related to his severe, poor pulmonary function. Again, I have no acute recommendations in this patient presently. cc: Luis Baer MD
--- NOTE | 2018-05-04 05:22 | CONSULTATION ---
DATE OF CONSULTATION: 05/03/2018 REQUESTING PROVIDER: SHAE Rainey. REASON FOR CONSULTATION: Hypoxic and hypocapnic respiratory failure. HISTORY OF PRESENT ILLNESS: This is a 68-year-old male with a medical history of COPD, paroxysmal atrial fibrillation, folic acid deficiency, chronic pain disorder, iron deficiency anemia, gastroesophageal reflux disease, hypertension, congestive heart failure , morbid obesity with obesity hypoventilation syndrome and history of DVT and pulmonary embolism. He presented to the ER on 04/27/2018 with altered mental status. Upon arrival, the patient became alert and oriented x3. Chest x-ray revealed left ventricular enlargement, increased pulmonary vascularity and right lower lobe atelectasis +/- pneumonia. Lab revealed hyponatremia, hypercapnia, and UTI. He has been admitted for further evaluation and management. During the period of this time, he is not compliant with BiPAP, and his pCO2 keeps elevating with pCO2 of 112 this morning. He also developed hypoxia with PO2 at 50s. At the time of my exam, the patient is resting in bed with BiPAP on. He states that he is doing okay. He reports some dry cough, but denies fever, chills, headache, nausea, vomiting, constipation, diarrhea, chest pain, or palpitations. PAST MEDICAL HISTORY: 1. COPD with oxygen in the long-term. 2. Paroxysmal atrial fibrillation. 3. Folic acid deficiency. 4. Chronic pain disorder. 5. Iron deficiency anemia. 6. Gastroesophageal reflux disease. 7. Hypertension. 8. Congestive heart failure. 9. Morbid obesity with obesity hypoventilation syndrome. 10. History of DVT and pulmonary embolism. PAST SURGICAL HISTORY: 1. Cholecystectomy. 2. Appendicectomy. 3. Right total knee arthroplasty. FAMILY HISTORY: Positive for hypertension, heart disease, and lung cancer. SOCIAL HISTORY: The patient lives at [facility]. He is basically bed bound and wheelchair bound. He has a 7-pack-year history of tobacco use and a history of heavy alcohol use. He denies current tobacco or alcohol use. He has no history of illicit drug use. ALLERGIES: No known drug allergies. REVIEW OF SYSTEMS: A 10 point review of systems was conducted, and the pertinent is listed within the HPI, otherwise noncontributory. PHYSICAL EXAMINATION: Vital Signs: Temperature 97.8 degrees, blood pressure 115/82, pulse 83, respiratory rate 19, oxygen saturation is 96% with BiPAP at 18/5. General: morbidly obese, chronically ill-appearing with confusion noted at times. HEENT: Atraumatic. Trachea midline. Mucosa pink and moist. Respiratory: Diminished breathing sounds bilaterally. Otherwise clear to auscultation. Cardiovascular: Regular rate and rhythm. Gastrointestinal: Distended/obese. Normoactive bowel sounds in all 4 quadrants. Extremities: Pedal edema 2+. No cyanosis. Neurologic: Alert and oriented x3 with confusion noted at times. Generalized weakness. LABORATORY DATA: White blood cell count 11.54, hemoglobin 14.6, hematocrit 48.6 , and platelets 193,000. Sodium 134, potassium 4.2, chloride 79, carbon dioxide 50, BUN 17, creatinine 0.7, and glucose 129. ABG with pH 7.33, pCO2 112, PO2 66, HCO3 44.4, base excess 25.2, and oxyhemoglobin 91.3. ASSESSMENT: This is a 68-year-old male with history of COPD, paroxysmal atrial fibrillation. Folate acid deficiency, chronic pain disorder, iron deficiency anemia, gastroesophageal reflux disease, hypertension, congestive heart failure, morbid obesity with obesity hypoventilation syndrome, and history of DVT and pulmonary embolism. He has been admitted with encephalopathy, UTI, hypocapnia and hyponatremia. 1. Acute on chronic hypoxic and hypocapnic respiratory failure. 2. Community-acquired pneumonia. 3. Obstructive sleep apnea. PLAN: 1. Continued antibiotics and bronchodilators as prescribed. 2. Continue supplemental oxygen. 3. Continue BiPAP at bedtime and as needed: work on patient's compliance by frequently educating the importance of BiPAP and the potential consequence without BiPAP; patient will be transferred to the ICU or [facility]IC for closely monitoring. 4. Routine ABG, CBC, BMP and chest x-ray. 5. Continue GI and DVT prophylaxis. Thank you for the courtesy of this consult. Dictated by SHAE Newell for Micha Landa MD cc: SHAE Newell MD [facility]
[2018-05-04 05:24] LABS: ALLEN TEST YES; BE 23.6 mmoll (-3.0-3.0); BLOOD TYPE ARTERIAL; HCO3-(ACT) 43.3 mmoll (20.0-26.0); METHB 0.7 % (0.0-1.5); O2(CT) 20.2 mL/dL (15.0-23.0); O2HB 95.9 % (95.0-99.0); PO2(98.6) 92 mmHg (60-100); SAMPLE BLOOD; SAO2 97.7 % (95.0-100.0); THB 14.9 g/dL (11.5-17.4); pH(98.6) 7.37 (7.35-7.45)
[2018-05-04 05:25] LABS: MODALITY BI PAP; PCO2(98.6) 96 mmHg (35-45)
[2018-05-04 05:32] LABS: BASO# 0.02 X1000 (0.0-0.2); BASO% 0.2 % (0.0-0.8); EOS# 0.11 X1000 (0.0-0.7); EOS% 1.1 % (0.0-10.0); HEMATOCRIT 48.6 % (42.0-52.0); HEMOGLOBIN 14.5 g/dL (14.0-18.0); IMM GRAN# 0.04 X1000 (0.0-0.04); IMM GRAN% 0.4 % (0.0-0.5); LYMPH# 1.61 X1000 (1.2-3.4); LYMPH% 15.6 % (20.5-51.1); MCH 27.7 PG (27-31); MCHC 29.8 g/dL (33-37); MCV 92.9 FL (81-99); MONO# 0.95 X1000 (0.11-0.59); MONO% 9.2 % (1.7-9.3); MPV 8.8 FL (7.4-10.4); NEUT# 7.56 X1000 (1.4-6.5); NEUT% 73.5 % (42.2-75.2); PLT 190 X1000 (130-400); RBC 5.23 XMIL (4.7-6.1); RDW 12.9 % (11.5-14.5); WBC 10.29 X1000 (4.8-10.8)
[2018-05-04 05:48] LABS: AGAP 8; BUN 23 mg/dL (8-22); CALCIUM 10.2 mg/dL (8.8-10.2); CHLORIDE 79 mmol/L (98-107); COSMO 275; CREATININE 0.9 mg/dL (0.7-1.2); ESTIMATED GFR > 60; GLUCOSE 150 mg/dL (70-104); POTASSIUM 4.1 mmol/L (3.5-5.1); SODIUM 134 mmol/L (136-145); TCO2 47 mmol/L (25-35)
[2018-05-04] MEDS: HUMALOG SUBQ SCH ×4 (06:00→20:51)
[2018-05-04] MEDS: CARDIZEM CD PO SCH (09:11)
[2018-05-04] MEDS: COLACE PO SCH ×2 (09:11→20:51)
[2018-05-04] MEDS: ZYVOX PO SCH ×2 (09:11→20:51)
[2018-05-04] MEDS: PEPCID PO SCH ×2 (09:11→20:51)
[2018-05-04] MEDS: LASIX PO SCH (09:11)
[2018-05-04] MEDS: FOLIC ACID PO SCH ×2 (09:11→20:52)
[2018-05-04] MEDS: ICAR-C PO SCH ×2 (09:11→20:51)
[2018-05-04] MEDS: CULTURELLE PO SCH ×2 (09:11→20:52)
[2018-05-04] MEDS: THERA M PLUS PO SCH ×2 (09:11→20:51)
[2018-05-04] MEDS: DIFLUCAN PO SCH (09:12)
[2018-05-04] MEDS: MAXIPIME 2 GM in NS 100 ML IV SCH ×2 (09:12→23:26)
[2018-05-04] MEDS: REQUIP PO SCH ×3 (09:12→20:51)
[2018-05-04] MEDS: MIRALAX PO SCH ×2 (09:12→20:51)
[2018-05-04] MEDS: FIBERCON PO SCH (09:59)
--- NOTE | 2018-05-04 13:28 | PROGRESS NOTE ---
DATE: 05/04/2018 SUBJECTIVE: The patient reports feeling less short of breath today, not completely fine, but that sensation is getting better. According to nursing staff, he has been using his BiPAP mask all night long most of the day yesterday. OBJECTIVE: Vital Signs: Temperature 97.4 degrees, heart rate 86, respiratory rate 20, blood pressure 141/90, O2 saturation 97% on BiPAP machine. General Examination: This is a chronically ill-looking, morbidly obese, 68-year-old male, lying in bed in no acute distress. HEENT: Head is normocephalic, atraumatic. Cardiovascular exam: S1, S2 heard. No murmurs, gallops, or rubs. Regular rate and rhythm. Respiratory exam: There are some crackles noted in both pulmonary bases, as well as wheezing. Patient is not using any accessory muscles or having work of breathing. Abdomen: Soft. Obese. A little bit distended, but nontender to palpation. Bowel sounds present. No organomegaly. Extremities: No clubbing, cyanosis, or edema. Peripheral pulses present in both legs. Neurological exam: Patient is alert and oriented x3. Moves 4 extremities. LABORATORY DATA: There is a normal CBC with ABG that shows pH 7.37, with pCO2 96, PO2 on 92, on BiPAP FiO2 of 70% with IPAP of 20 and EPEP of 8. BMP shows sodium 134 with glucose 150. ASSESSMENT AND PLAN: 1. Acute on chronic hypercapnic hypoxemic respiratory failure. Although clinically this patient is feeling better, he is CO2 was pretty much elevated, even though he has been using BiPAP as he is supposed to. At this time, we are going to continue with the same management. In this case, BiPAP. We will continue to monitor this patient in the [facility]. We will continue to follow recommendations from Pulmonary. 2. Community-acquired pneumonia. Patient is on Zyvox and cefepime. Conceded that clinically this patient is not getting better. We will prefer to do a CT of the chest to have a better visualization of the lung anatomy. 3. Hyponatremia, resolved. 4. Paroxysmal atrial fibrillation. We will continue to monitor this patient closely. Actually, there was a report that the patient has got non sustaining ventricular tachycardia. So, we have consulted Cardiology and there are no specific recommendations for this problem. 5. History of deep vein deep vein thrombosis. We will continue with Xarelto. 6. Obstructive sleep apnea. Patient is using BiPAP here in the hospital. 7. Constipation. We will continue with laxative. 8. Disposition: We will continue to monitor this patient here in the [facility]. We will continue to follow recommendations from Pulmonary. cc: Yuriy Schwarz MD
[2018-05-04] MEDS: XARELTO PO SCH (16:08)
[2018-05-04] MEDS: FLOMAX PO SCH (20:51)
[2018-05-04] MEDS: NORCO-7.5 PO PRN (23:26)
[2018-05-05] MEDS: DUONEB (A & A) INH SCH ×6 (03:10→23:23)
[2018-05-05 05:47] LABS: ALLEN TEST YES; BLOOD TYPE ARTERIAL; HCO3-(ACT) 43.5 mmoll (20.0-26.0); METHB 0.7 % (0.0-1.5); O2(CT) 18.7 mL/dL (15.0-23.0); O2HB 92.2 % (95.0-99.0); PO2(98.6) 66 mmHg (60-100); SAMPLE BLOOD; SAO2 94.1 % (95.0-100.0); THB 14.4 g/dL (11.5-17.4); pH(98.6) 7.34 (7.35-7.45)
[2018-05-05 05:48] LABS: MODALITY CANNULA
[2018-05-05 05:50] LABS: PCO2(98.6) 105 mmHg (35-45)
[2018-05-05] MEDS: HUMALOG SUBQ SCH ×4 (05:59→21:00)
[2018-05-05 06:01] LABS: BASO# 0.03 X1000 (0.0-0.2); BASO% 0.3 % (0.0-0.8); EOS# 0.11 X1000 (0.0-0.7); HEMATOCRIT 47.1 % (42.0-52.0); HEMOGLOBIN 13.9 g/dL (14.0-18.0); IMM GRAN# 0.05 X1000 (0.0-0.04); IMM GRAN% 0.5 % (0.0-0.5); MCH 27.6 PG (27-31); MCHC 29.5 g/dL (33-37); MCV 93.5 FL (81-99); MONO# 1.01 X1000 (0.11-0.59); MONO% 9.6 % (1.7-9.3); NEUT# 7.47 X1000 (1.4-6.5); NEUT% 70.6 % (42.2-75.2); PLT 171 X1000 (130-400); RBC 5.04 XMIL (4.7-6.1); WBC 10.57 X1000 (4.8-10.8)
[2018-05-05 06:37] LABS: ESTIMATED GFR > 60
[2018-05-05 06:48] LABS: AGAP 11; BUN 25 mg/dL (8-22); CALCIUM 10.2 mg/dL (8.8-10.2); CHLORIDE 82 mmol/L (98-107); COSMO 278; CREATININE 0.8 mg/dL (0.7-1.2); GLUCOSE 130 mg/dL (70-104); SODIUM 136 mmol/L (136-145); TCO2 43 mmol/L (25-35)
[2018-05-05] MEDS: REQUIP PO SCH ×3 (08:57→21:00)
[2018-05-05] MEDS: IMDUR PO SCH (08:58)
[2018-05-05] MEDS: FIBERCON PO SCH (08:58)
[2018-05-05] MEDS: ICAR-C PO SCH ×2 (08:58→21:00)
[2018-05-05] MEDS: DIFLUCAN PO SCH (08:58)
[2018-05-05] MEDS: FOLIC ACID PO SCH ×2 (08:58→21:00)
[2018-05-05] MEDS: CARDIZEM CD PO SCH (08:58)
[2018-05-05] MEDS: THERA M PLUS PO SCH ×2 (08:58→21:00)
[2018-05-05] MEDS: ZYVOX PO SCH ×2 (08:58→21:00)
[2018-05-05] MEDS: PEPCID PO SCH ×2 (08:58→21:00)
[2018-05-05] MEDS: MIRALAX PO SCH ×2 (08:58→21:00)
[2018-05-05] MEDS: COLACE PO SCH ×2 (08:58→21:00)
[2018-05-05] MEDS: LASIX PO SCH (08:58)
[2018-05-05] MEDS: CULTURELLE PO SCH ×2 (08:58→21:00)
[2018-05-05] MEDS: MAXIPIME 2 GM in NS 100 ML IV SCH ×2 (08:59→21:00)
--- NOTE | 2018-05-05 09:03 | Diag Imaging Result Doc PS360 ---
EXAM: CT THORAX/ABD/PELVIS W/CON 05/05/2018 HISTORY: PNA/Rule out blockage TECHNIQUE: This exam was performed using automated exposure control, adjustment of mA or kV according to patient size, and/or use of iterative reconstruction technique. COMMENT: Thorax: The current examination is compared with the previous study of 09/07/2016. There is no apparent filling defects in the pulmonary arteries. The aorta is slightly distended proximally to 4.4 cm. This is slightly larger than the 4.1 cm on the previous study. There is no evidence of dissection. There is left ventricular and left atrial enlargement. There is consolidation in both lower lobes posteriorly. This is worse than on the previous study. There is some interstitial opacity which may indicate mild interstitial pulmonary edema. There are spondylotic changes in the thoracic spine. There is no evidence of significant adenopathy. Some coronary calcifications are present particularly in the left anterior descending artery. ABDOMEN: There are no previous abdominal studies available for comparison. There is massive dilatation of the colon with the exception of the descending colon and distal sigmoid and rectum. The cecum is in excess of 13 cm in transverse dimension. There is a considerable amount of retained fluid and fecal debris in the cecum. There is stool in the rectum and distal sigmoid. Compared to the previous thoracic study of 09/07/2016 there was a somewhat similar appearance of dilatation of the upper portion of the colon and this may be a chronic process. There is no evidence of mucosal thickening. The liver, spleen, adrenal glands and pancreas are stable in appearance. There is a vena cava filter. The aorta is not distended. The mesenteric and renal arteries are patent. The renal collecting systems are slightly prominent but there is no evidence of mass or stones. The appearance of the left kidney was similar on the previous thoracic study. There has been previous appendectomy. There is no evidence of significant adenopathy. The small bowel is not distended. Pelvis: There is some subcutaneous edema in the flanks. There is no evidence of free pelvic fluid. There is a catheter in the urinary bladder. There are severe degenerative disc and facet changes in the lumbar spine with scoliosis and convexity to the left. No evidence of acute bony disease is present. IMPRESSION: 1. Bibasilar atelectasis versus pneumonia. Cardiomegaly and ectasia of the ascending aorta. Coronary atherosclerosis. Mild interstitial pulmonary edema. 2. While the possibility of stricture in the distal sigmoid, or the possibility of sigmoid volvulus with subsequent the torsion or Rupal's syndrome cannot be excluded, given the findings on the previous thoracic study, it is likely this is chronic. Electronically signed by Misbah Shaikh 05/05/2018 9:00 AM
--- NOTE | 2018-05-05 11:31 | PROGRESS NOTE ---
DATE: 05/05/2018 SUBJECTIVE: Patient reports feeling still short of breath. He looks confused to me today. According to nursing staff, he was not using his BiPAP overnight although at some moment he was confused and trying to remove it. Apparently from last night he has probably removed it for an hour or two but the rest of the time he was using BiPAP: OBJECTIVE: Vital Signs: Temperature 97.8 degrees, heart rate 86, respiratory rate 27, blood pressure 133/61, O2 saturation 91% on BiPAP. General: This is a chronically ill-looking, extremely morbidly obese, 68-year-old male, lying in bed, in no acute distress. HEENT: Head is normocephalic, atraumatic. Neck: No JVD noted. No carotid bruits. Cardiovascular: S1, S2 heard. No murmurs, gallops, or rubs. Regular rate and rhythm. Respiratory: Crackles and rhonchi in both pulmonary bases as well as wheezing in comparing with yesterday. Patient is not using any accessory muscles or having work of breathing. Abdomen: Soft. Obese. Definitely more distended than yesterday. Mildly tender to palpation. Bowel sounds distant but present. No organomegaly noted. Extremities: No clubbing, cyanosis, or edema. Peripheral pulses. Mild edema 1+ in both lower extremities. Neurological: Patient alert and oriented x3. Moves all extremities. LABORATORY DATA: White cell count 10.57, hemoglobin 13.8, hematocrit 47.1, platelets 171,000. ABG shows pH 7.34 with pCO2 105, pO2 66. Normal BMP. ASSESSMENT AND PLAN: 1. Acute on chronic hypercapnic hypoxemic respiratory failure. Unfortunately, this patient continues to require BiPAP for ventilation. CO2 continues to be very high and today is above 100 at 102. I also noticed that the abdomen is very distended. In order to evaluate if there is any abdominal condition that is pushing the diaphragm and contributing to this respiratory failure, I prefer to do CT of the abdomen and pelvis and he is supposed to have a CT of the chest today for better visualization of the lung anatomy. Considering that his respiratory failure is not getting better, we will continue to monitor this patient in [facility]. 2. Community-acquired pneumonia. Patient is on Zyvox and cefepime. Still complaining of shortness of breath. At this point, we will continue with the same antibiotic coverage. 3. Hyponatremia, almost resolved. We will continue to monitor BMP. 4. Paroxysmal atrial fibrillation. At this point, patient is not in atrial fibrillation. I think this could be related to hypercapnia and hypoxemia. Cardiology has been following this patient but no new recommendations from their standpoint. 5. History of deep vein thrombosis. We will continue with Xarelto. 6. Obstructive sleep apnea. Patient uses BiPAP here in the hospital although the CO2 continues to be elevated. 7. Constipation. We will continue with laxatives. DISPOSITION: At this point, our plan is to do a CT of the chest, abdomen, pelvis. Will continue to monitor this patient closely in the [facility]. He is a high risk of intubation. cc: Yuriy Schwarz MD
--- NOTE | 2018-05-05 15:17 | GENERAL SURGERY CONSULTATION ---
DATE: 05/05/2018 TIME: 2:45 p.m. HISTORY OF PRESENT ILLNESS: I have been asked to see Mr. Velez regarding a possible obstruction. Mr. Velez is a 68-year-old who is a resident of [facility]. He was admitted with an altered mental status. He has chronic COPD and requires CPAP to control his hypercarbia. In the hospital, he is noted to have a distended abdomen. CT scan shows a very dilated loop of colon and there is some question as to whether this represents a sigmoid volvulus. Mr. Velez reports no abdominal pain, no problem with his bowel movements, has usually about 2 a day. He says his abdomen is nontender. PAST MEDICAL HISTORY: Pertinent for morbid obesity, COPD, obesity hypoventilation syndrome, paroxysmal atrial fibrillation, gastroesophageal reflux disease, hypertension, congestive heart failure. PAST SURGICAL HISTORY: Previous surgery includes a cholecystectomy and right knee arthroplasty. FAMILY HISTORY: Pertinent for heart disease, hypertension, and lung cancer. SOCIAL HISTORY: He is a permanent resident of [facility]. He is wheelchair-bound. He is not ambulatory. He does not smoke now. MEDICATIONS: Listed. ALLERGIES: He has no known drug allergies. REVIEW OF SYSTEMS: Negative for abdominal pain or constipation. PHYSICAL EXAMINATION: Vital Signs: Afebrile, heart rate 63, respiratory rate 32, blood pressure 134/65. General: He does arouse and awaken when spoken to, and answers questions. Lungs: He has bilateral breath sounds. Heart: Regular rate and rhythm. Abdomen: Distended, but he is nontender. It is tympanitic. Extremities: He has venous stasis dermatitis of both legs. LABORATORY DATA: White count 10,500, hemoglobin 13.9. PH 7.34, pCO2 105. BUN 25, creatinine 0.8. Carbon dioxide is 43 on his chemistry. DIAGNOSTIC STUDIES: CT scan shows a dilated transverse colon and dilated sigmoid colon. No evidence of a true volvulus. 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 I do not think he has any evidence of a bowel obstruction. I do not think he has a sigmoid volvulus. I will follow along. cc: Weston Peraza MD
[2018-05-05] MEDS ORDERED: DULCOLAX PR PRN (16:59)
[2018-05-05] MEDS ORDERED: LOPRESSOR IV PRN (17:01)
[2018-05-05] MEDS ORDERED: DIAMOX IV ONE (17:06)
[2018-05-05] MEDS: XARELTO PO SCH (17:24)
--- NOTE | 2018-05-05 17:43 | PROGRESS NOTE ---
DATE: 05/05/2018 SUBJECTIVE: Patient moved to intensive care unit due to progressive hypercapnic respiratory failure. He was very inconsistent in wearing BiPAP. He started to manifest some confusion although he denies shortness of breath. There has been no chest pain. He has been having some difficulty with constipation and abdominal distention. OBJECTIVE: Vital Signs: Blood pressure 134/65, heart rate 72 with ECG monitor showing sinus rhythm with premature atrial complexes. Oxygen saturation 94% on BiPAP. Neck: Jugular venous distention cannot be appreciated. Chest: Clear to auscultation anteriorly. Cardiac Exam: Reveals a regular rate and rhythm without appreciable murmur or gallop. Abdomen: Distended and tympanitic. Bowel sounds are audible and somewhat high-pitched. There is mild pretibial edema. LABORATORY DATA: Includes a white blood cell count 10.57, hematocrit 47.1, hemoglobin 13.9, platelet count 171,000. Sodium 136, potassium 4.0, chloride 82, carbon dioxide 43, BUN 25, creatinine 0.8, glucose 130. IMPRESSION: 1. Hypercapnic respiratory failure predominantly related to obstructive sleep apnea and hypoventilation. 2. Component of cor pulmonale/right-sided congestive heart failure. 3. Paroxysmal atrial fibrillation. 4. Hypertension. 5. Diabetes mellitus. 6. History of deep vein thrombosis/pulmonary embolism. 7. Morbid obesity. RECOMMENDATIONS: 1. Discontinue diltiazem and utilize low-dose metoprolol. 2. Dulcolax suppository. 3. Limit narcotics as best possible try and improve bowel motility. cc: Aamir Denise MD
[2018-05-05] MEDS: FLOMAX PO SCH (21:00)
[2018-05-05] MEDS ORDERED: LOPRESSOR PO SCH (21:00)
[2018-05-06] MEDS: DUONEB (A & A) INH SCH ×6 (03:19→23:20)
[2018-05-06 05:01] LABS: ALLEN TEST YES; BE 25.1 mmoll (-3.0-3.0); BLOOD TYPE ARTERIAL; HCO3-(ACT) 44.4 mmoll (20.0-26.0); O2(CT) 19.2 mL/dL (15.0-23.0); O2HB 93.6 % (95.0-99.0); PO2(98.6) 69 mmHg (60-100); SAMPLE BLOOD; SAO2 95.8 % (95.0-100.0); THB 14.6 g/dL (11.5-17.4); pH(98.6) 7.45 (7.35-7.45)
[2018-05-06 05:04] LABS: MODALITY BI PAP
[2018-05-06 05:57] LABS: BASO# 0.03 X1000 (0.0-0.2); BASO% 0.4 % (0.0-0.8); EOS% 1.3 % (0.0-10.0); HEMATOCRIT 41.4 % (42.0-52.0); HEMOGLOBIN 12.5 g/dL (14.0-18.0); IMM GRAN# 0.05 X1000 (0.0-0.04); IMM GRAN% 0.6 % (0.0-0.5); LYMPH# 1.48 X1000 (1.2-3.4); LYMPH% 18.9 % (20.5-51.1); MCHC 30.2 g/dL (33-37); MCV 92.6 FL (81-99); MPV 9.6 FL (7.4-10.4); NEUT# 5.46 X1000 (1.4-6.5); NEUT% 69.8 % (42.2-75.2); PLT 145 X1000 (130-400); RBC 4.47 XMIL (4.7-6.1); RDW 13.2 % (11.5-14.5); WBC 7.82 X1000 (4.8-10.8)
[2018-05-06] MEDS: HUMALOG SUBQ SCH ×4 (06:22→20:56)
[2018-05-06 07:18] LABS: ESTIMATED GFR > 60
[2018-05-06 07:22] LABS: BUN 24 mg/dL (8-22); CALCIUM 9.3 mg/dL (8.8-10.2); CREATININE 0.6 mg/dL (0.7-1.2); GLUCOSE 110 mg/dL (70-104); TCO2 43 mmol/L (25-35)
[2018-05-06 08:11] LABS: CHLORIDE 86 mmol/L (98-107); POTASSIUM 3.3 mmol/L (3.5-5.1); SODIUM 141 mmol/L (136-145)
[2018-05-06 08:16] LABS: AGAP 12
[2018-05-06 08:17] LABS: COSMO 286
[2018-05-06] MEDS: FOLIC ACID PO SCH ×2 (08:43→20:56)
[2018-05-06] MEDS: DIFLUCAN PO SCH (08:44)
[2018-05-06] MEDS: ICAR-C PO SCH ×2 (08:44→20:56)
[2018-05-06] MEDS: IMDUR PO SCH (08:44)
[2018-05-06] MEDS: PEPCID PO SCH ×2 (08:44→20:56)
[2018-05-06] MEDS: CULTURELLE PO SCH ×2 (08:44→20:55)
[2018-05-06] MEDS: ZYVOX PO SCH ×2 (08:44→20:56)
[2018-05-06] MEDS: THERA M PLUS PO SCH ×2 (08:44→20:55)
[2018-05-06] MEDS: REQUIP PO SCH ×3 (08:44→20:55)
[2018-05-06] MEDS: COLACE PO SCH ×2 (08:44→20:56)
[2018-05-06] MEDS: MIRALAX PO SCH ×2 (08:45→20:56)
[2018-05-06] MEDS: MAXIPIME 2 GM in NS 100 ML IV SCH ×2 (08:54→20:56)
[2018-05-06] MEDS: FIBERCON PO SCH (08:54)
[2018-05-06] MEDS: LASIX PO SCH (08:56)
[2018-05-06] MEDS ORDERED: GOLYTELY PO ONE (09:50)
--- NOTE | 2018-05-06 10:29 | PROGRESS NOTE ---
DATE: 05/06/2018 SUBJECTIVE: The patient reports breathing better. He reports that he has not had any bowel movements in several days. He was transferred to the intensive care unit because he was short of breath, tachypneic, and also with worsening abdominal distention, but now he is getting better. OBJECTIVE: Vital Signs: Temperature 97.5, heart rate 42, respiratory rate 22, blood pressure 115/69, O2 saturation 94% on BiPAP machine. General examination: This is a chronically ill- looking and extremity morbidly obese, 68-year-old male, lying in bed, in no acute distress. HEENT: Head is normocephalic, atraumatic. Neck: No JVD noted. No carotid bruits. No lymphadenopathy. No thyromegaly. Cardiovascular: S1, S2 heard. No murmurs, gallops, or rubs. Regular rate and rhythm. Respiratory: Decreased breath sounds globally. There are minimal coarse breath sounds in both bases. Patient is not using any accessory muscles or having work of breathing. Abdomen: Distended but less in comparing with yesterday. Less tympanic. Bowel sounds present but distant. No organomegaly noted. Extremities: No clubbing or cyanosis but there is mild edema, 1+ in both lower extremities. Neurological: Patient is alert and oriented x3. Moves 4 extremities. LABORATORY DATA: White cell count 7.82, hemoglobin 12.5, hematocrit 41.4, platelets 145,000. ABG shows pH 7.45, with pCO2 79, PO2 69. Sodium 141, potassium 3.3. Normal creatinine. Chest, abdomen, and pelvis done yesterday showed bibasilar atelectasis versus pneumonia with cardiomegaly and ectasia of the ascending aorta. There is a possible stricture in the distal sigmoid colon. ASSESSMENT AND PLAN: 1. Acute on chronic hypoxemic hypercapnic respiratory failure. This patient reports feeling less short of breath and also his CO2 has dramatically dropped to 79. Considering his obstructive sleep apnea, I think he should be living with those CO2 numbers. There is also less abdominal distention. So, at this point, we will continue to monitor this patient closely. 2. 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 Yesterday the patient had worse abdominal distention. 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 We have consulted Dr. Peraza from General Surgery. He does not think he has a bowel obstruction. He has been started on a clear liquid diet. No NG tube placed. At this point, he has been recommended to start a clear liquid diet. I think this patient needs to move his bowels so we are going to start GoLYTELY on this patient and see how he does. 3. Paroxysmal atrial fibrillation. Actually after this patient was stopped on Cardizem and started on metoprolol, his heart rate has been reaching 30s and 40s so at this point I am planning to stop metoprolol, observe him, and we may need to use Cardizem to control heart rate if that goes high again. Also, Cardiology is following this patient. We will follow recommendations. 4. Community-acquired pneumonia. Patient is on Zyvox and cefepime. We will continue with the same management. 5. Hyponatremia. Still present. We will continue to monitor. 6. History of deep vein thrombosis. Will continue with Xarelto. 7. Obstructive sleep apnea. Patient continues to use BiPAP in the hospital. 8. Constipation. I think this is the main reason why this patient has developed this abdominal distention. So at this point, we are going to provide GoLYTELY and see how he does. 9. Disposition. I think at this point, considering his low heart rate he needs to stay here in the intensive care unit for better monitoring. cc: Yuriy Schwarz MD
--- NOTE | 2018-05-06 11:05 | GENERAL SURGERY PROGRESS NOTE ---
DATE: 05/06/2018 SUBJECTIVE: It is 8:40 in the morning. Mr. Velez says he feels better. He says he has passed flatus. OBJECTIVE: Vital signs: Heart rate is 57, blood pressure 133/48. Abdomen: Soft and really does not represent any change in exam. LABORATORY: White count 7800, hemoglobin 12.5, pCO2 is down to 79. BUN 24, creatinine 0.6. ASSESSMENT AND PLAN: I think it is okay with me that he have clear liquids. cc: Weston Peraza MD
[2018-05-06] MEDS: XARELTO PO SCH (16:38)
[2018-05-06] MEDS: FLOMAX PO SCH (20:56)
[2018-05-07] MEDS: NORCO-7.5 PO PRN (01:52)
[2018-05-07] MEDS: DUONEB (A & A) INH SCH ×6 (02:38→22:40)
[2018-05-07 04:02] LABS: ALLEN TEST YES; BE 26.3 mmoll (-3.0-3.0); BLOOD TYPE ARTERIAL; HCO3-(ACT) 45.4 mmoll (20.0-26.0); METHB 0.6 % (0.0-1.5); O2(CT) 15.5 mL/dL (15.0-23.0); O2HB 94.2 % (95.0-99.0); PO2(98.6) 68 mmHg (60-100); SAMPLE BLOOD; SAO2 95.8 % (95.0-100.0); THB 11.7 g/dL (11.5-17.4); pH(98.6) 7.46 (7.35-7.45)
[2018-05-07 04:03] LABS: MODALITY BI PAP
[2018-05-07 04:04] LABS: PCO2(98.6) 77 mmHg (35-45)
[2018-05-07] MEDS: HUMALOG SUBQ SCH ×4 (08:23→21:36)
[2018-05-07] MEDS: DIFLUCAN PO SCH (09:00)
[2018-05-07] MEDS: CULTURELLE PO SCH ×2 (09:00→21:39)
[2018-05-07] MEDS: LASIX PO SCH (09:00)
[2018-05-07] MEDS: FOLIC ACID PO SCH ×2 (09:00→21:38)
[2018-05-07] MEDS: REQUIP PO SCH ×3 (09:00→21:39)
[2018-05-07] MEDS: THERA M PLUS PO SCH ×2 (09:00→21:39)
[2018-05-07] MEDS: IMDUR PO SCH (09:00)
[2018-05-07] MEDS: ZYVOX PO SCH ×2 (09:00→21:39)
[2018-05-07] MEDS: PEPCID PO SCH ×2 (09:00→21:39)
[2018-05-07] MEDS: ICAR-C PO SCH ×2 (09:00→21:38)
[2018-05-07] MEDS: MAXIPIME 2 GM in NS 100 ML IV SCH ×2 (09:01→21:38)
[2018-05-07] MEDS: COLACE PO SCH ×2 (09:01→21:39)
[2018-05-07] MEDS: MIRALAX PO SCH ×2 (09:01→21:40)
[2018-05-07] MEDS: FIBERCON PO SCH (09:01)
--- NOTE | 2018-05-07 09:38 | PROGRESS NOTE ---
DATE: 05/07/2018 SUBJECTIVE: The patient reports breathing better in comparing with the last two days. The patient reports having had several bowel movements. OBJECTIVE: Vital Signs: Temperature 98, heart rate 62, respiratory rate 18, blood pressure 112/56, O2 saturation 92% on BiPAP. General: This is a chronically ill-looking and extremely morbidly obese, 68-year-old male, lying in bed, in no acute distress. Cardiovascular: S1, S2 heard. No murmurs, gallops, or rubs. Regular rate and rhythm. Respiratory: Decreased breath sounds globally. There are minimal coarse breath sounds noted in both bases. Patient not using any accessory muscles or having work of breathing. Abdomen: Distended still, but less in comparing with yesterday. Less tympanic bowel sounds present, but distant. No organomegaly noted. Extremities: No clubbing, cyanosis, but is a mild edema 1+ in both lower extremities. Neurological: Patient alert and oriented x3. Moves 4 extremities. LABORATORY DATA: There is no CBC from today. ABG shows pH 7.46 with pCO2 77, PO2 68. No BMP as well. ASSESSMENT AND PLAN: 1. Acute on chronic hypoxemic, hypercapnic respiratory failure. Clinically, he reports breathing better. CO2 has not changed too much from yesterday to today. At this point, we will continue to monitor this patient closely. 2. [place] syndrome. The patient reports feeling better. He has had several bowel movements. I do not think we need to provide more GoLYTELY for him. We will continue to monitor this patient closely. 3. Paroxysmal atrial fibrillation. Heart rate after we stopped Toprol because heart rate has been in the range of 30s, now is in 60s and the lowest was 58, so at this point, we will continue to hold that medication. 4. Community-acquired pneumonia. Patient is on Zyvox and cefepime. We will continue with the same medications. 5. Hyponatremia. We do not have any labs yet. 6. History of DVT. We will continue with Xarelto. 7. Obstructive sleep apnea. Patient continues to use BiPAP at night in the hospital. 8. Constipation. After he had 1 gallon of GoLYTELY, this patient is feeling much better. 9. Disposition. I think considering this patient's high CO2, I prefer to keep him one more day in the [facility] unit and see how he does. cc: Yuriy Schwarz MD
[2018-05-07] MEDS: XARELTO PO SCH (16:30)
[2018-05-07] MEDS: FLOMAX PO SCH (21:38)
[2018-05-07 22:00] LABS: PCO2(98.6) 79 mmHg (35-45)
[2018-05-08] MEDS ORDERED: CALMOSEPTINE OINTMENT TOP PRN (01:23)
[2018-05-08] MEDS: NORCO-7.5 PO PRN (01:47)
[2018-05-08] MEDS: DUONEB (A & A) INH SCH ×3 (02:55→11:15)
[2018-05-08 03:23] LABS: ALLEN TEST YES; BE 23.9 mmoll (-3.0-3.0); BLOOD TYPE ARTERIAL; HCO3-(ACT) 43.5 mmoll (20.0-26.0); METHB 0.6 % (0.0-1.5); O2(CT) 15.2 mL/dL (15.0-23.0); O2HB 93.6 % (95.0-99.0); PO2(98.6) 64 mmHg (60-100); SAMPLE BLOOD; SAO2 95.2 % (95.0-100.0); THB 11.5 g/dL (11.5-17.4); pH(98.6) 7.48 (7.35-7.45)
[2018-05-08 03:24] LABS: MODALITY BI PAP
[2018-05-08 03:25] LABS: PCO2(98.6) 69 mmHg (35-45)
[2018-05-08] MEDS: HUMALOG SUBQ SCH ×2 (06:10→11:59)
[2018-05-08] MEDS: MIRALAX PO SCH (09:02)
[2018-05-08] MEDS: IMDUR PO SCH (09:02)
[2018-05-08] MEDS: THERA M PLUS PO SCH (09:02)
[2018-05-08] MEDS: ICAR-C PO SCH (09:02)
[2018-05-08] MEDS: PEPCID PO SCH (09:02)
[2018-05-08] MEDS: CULTURELLE PO SCH (09:02)
[2018-05-08] MEDS: REQUIP PO SCH (09:02)
[2018-05-08] MEDS: ZYVOX PO SCH (09:02)
[2018-05-08] MEDS: FOLIC ACID PO SCH (09:02)
[2018-05-08] MEDS: LASIX PO SCH (09:02)
[2018-05-08] MEDS: FIBERCON PO SCH (09:03)
[2018-05-08] MEDS: COLACE PO SCH (09:03)
--- NOTE | 2018-05-08 11:34 | DISCHARGE SUMMARY ---
ADMISSION DATE: 04/28/2018 DISCHARGE DATE: 05/08/2018 CONSULTATIONS: 1. Dr. Jose Yi, Nephrology. 2. Dr. Luis Baer, Cardiology. 3. Micha Landa MD, Pulmonology. 4. Dr. Weston Peraza, General Surgery. PERTINENT PROCEDURES: 1. Initial chest x-ray: Cardiomegaly, pulmonary vascular congestion and right lower lobe atelectasis. 2. Head CT: No evidence of acute intracranial disease. Chronic ischemic microvascular white matter changes. 3. Echocardiogram: Difficult secondary to body habitus. Mild LVH. Interventricular septal wall thickness. EF of 50 to 55 percent. Wall motion could not be visualized well secondary to body habitus. 4. Chest, abdomen and pelvis CT: No subcutaneous edema in the flanks. No evidence of free fluid. Severe degenerative disk and facet changes to the lumbar spine with scoliosis and convexity to the left. No evidence of acute bony disease present. Bibasilar atelectasis versus pneumonia, cardiomegaly. Ectasia of the ascending aorta. Coronary atherosclerosis. Mild interstitial pulmonary edema. Possibility of stricture in the distal sigmoid or possible sigmoid volvulus and subsequent detorsion or Rupal's syndrome could not be excluded. Given the findings on the previous thoracic study, it is likely chronic. ASSESSMENT AND PLAN: 1. Acute on chronic hypercapnic, hypoxemic respiratory failure. Clinically, the patient has improved. His CO2 remains unchanged. He will be discharged to [facility] to continue on CPAP machine. 2. [place] syndrome. He was evaluated by General Surgery. There was no finding or evidence of bowel obstruction or sigmoid volvulus. The patient has improved with bowel regimen. He is having bowel movements. 3. Paroxysmal atrial fibrillation. Heart rate is controlled. We did have to hold his Toprol secondary to heart rate falling into the 30s. Over the last few days. He has been anywhere from high 50s to upper 70s. 4. Community-acquired pneumonia. The patient has been on IV antibiotics. He has completed a full course. Chest x-ray shows improvement. 5. Hyponatremia, improved. 6. History of DVT. Continue Xarelto. 7. Obstructive sleep apnea. The patient has been using the BiPAP in hospital and will be discharged to [facility] with CPAP. 8. Constipation. Again, had good results with bowel regimen. He is having bowel movements. 9. Severe morbid obesity. The patient has been educated on diet and exercise. 10. CO2 retention secondary to [place]wick[place]-type syndrome. Again, he will continue on CPAP. 11. Fluid volume overload. He responded well to IV Lasix and then a fluid restriction of 1.5 L. He will continue on 40 mg of Lasix p.o. at night. 12. Chronic obstructive pulmonary disease. 13. Folic acid deficiency. Continue supplementation. 14. Chronic pain disorder. 15. Iron deficiency anemia. Hemoglobin and hematocrit has remained stable. 16. Gastroesophageal reflux disease. Continue proton pump inhibitor. 17. Hypertension. 18. Urinary tract infection. The patient has received full course of treatment. 19. Hypervolemic, hypotonic hyponatremia. 20. Encephalopathy. Multifactorial given infection with UTI, pneumonia, hypercapnia, and hypoxemia with hyponatremia, all completely resolved. HOSPITAL COURSE: Briefly, Mr. Velez is a 68-year-old gentleman who is a resident if [facility], who carries a past medical history of morbid obesity, uses supplemental oxygen at home. He came to the hospital for evaluation of weakness and dizziness as well as altered mental status and was found to have hyponatremia in the context of gross volume overload. He was also found to be hypoxemic and hypercarbic. He was placed on BiPAP. He was diuresed with IV Lasix. He was treated initially for urinary tract infection, and was found to have community-acquired pneumonia. Antibiotics were changed accordingly. His initial sodium was 122. After diuresis and fluid restrictions and [place], his hyponatremia has resolved. He has been cycled on and off BiPAP throughout his admission. Followed by Pulmonology. Slowly over the course of his hospital stay, he has clinically improved. However, there is not much change in his CO2 retention. He will be discharged back to rehab to continue on CPAP. Unfortunately, during his hospital stay, he began having bouts of constipation. They did a CT of the chest, abdomen, and pelvis, thought there was some type of obstruction. He was evaluated by General Surgery, who felt that this was chronic and [place] syndrome. He improved with bowel regimen. He is now having regular bowel movements, tolerating a diet and will be discharged back to [facility] today to continue on CPAP. VITAL SIGNS: Temperature is 99.4 degrees axillary, heart rate 71, respirations 24, blood pressure 110/66, O2 is 95% on BiPAP. DISCHARGE DIET: Diabetic. DISCHARGE MEDICATIONS: 1. Desyrel 75 mg p.o. at bedtime. 2. ProAir inhaler 8.5 g inhaled daily. 3. FiberCon 625 mg p.o. daily. 4. Pepcid 20 mg p.o. b.i.d. 5. Lasix 40 mg p.o. at bedtime. 6. Ipratropium albuterol sulfate 3 mL inhaled t.i.d. 7. Melatonin 5 mg, 1 each p.o. at bedtime. 8. Klor-Con 10 mEq p.o. q.a.m. 9. Requip 2 mg p.o. t.i.d. 10. Flomax 0.4 mg p.o. at bedtime. 11. DuoNeb 3 mL inhaled q.4 hours p.r.n. 12. Colace 100 mg p.o. b.i.d. 13. Folic acid 1 mg p.o. b.i.d. 14. Cayey 7.5, one each p.o. q.6 hours p.r.n. 15. Icar C, 1 each p.o. b.i.d. 16. Culturelle, 1 each p.o. b.i.d. 17. Prinivil 5 mg p.o. daily. 18. Theragran Plus, 1 each p.o. b.i.d. 19. MiraLAX 17 g p.o. b.i.d. 20. Xarelto 20 mg p.o. daily. 21. Carafate 1 g p.o. q.6 hours. 22. Spiriva 1 puff inhaled RT daily. FOLLOWUP: Mr. Velez is being discharged back to [facility] where he will continue on CPAP. 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 He can return to the ED or call 911 for any worsening of symptoms. Dictated by SHAE Gallagher for Yuriy Schwarz MD Addendum: Patient is seen and examined by myself. Agree with SHAE note. It reflects my assessment and plan. Patient is being discharged to rehab facility in stable condition. cc: MD Luis Gipson MD Mamoun I. Najjar, MD Robert C. Walker, MD Reginald D. Gladish, MD MTDD
[2018-05-08] MEDS: MAXIPIME 2 GM in NS 100 ML IV SCH (12:00)
[2018-05-08 13:06] VITALS: BP 105/44
== END 2018-05-08 15:28 | DRG 205 ==
LOC: ED 21:17 → SUATTDRO 04-28 04:36 → 3N 04-28 04:36 → 3S 05-03 14:20 → ICU 05-05 11:56 → 3S 05-07 01:40
PROVIDERS: ATTEND Internal Medicine
CPT/HCPCS: 36415; 70450; 71010; 71045; 71260; 74177; 80048; 80053; 80101; 80301; 80307; 80324; 80345; 80346; 80353; 80358; 80361; 80365; 81001; 82533; 82550; 82805; 82948; 83735; 83880; 83930; 83935; 83992; 84145; 84295; 84300; 84439; 84443; 84484; 85025; 85610; 85651; 85730; 86140; 87040; 87088; 93005; 93010; 93306; 94640; 94660; 94761; 94762; 94799; 96365; 99285; 99291; A9270; C8929; G0431; G0434; G0479; G0480; J0692; J0696; J1120; J1815; J1940; J2020; J7030; Q9957; Q9967; XXXXX

== ENCOUNTER 2019-05-26 09:25 | Inpatient (IN) ==
[2019-05-26 10:10] LABS: ALLEN TEST YES; BE 12.6 mmoll (-3.0-3.0); BLOOD TYPE ARTERIAL; HCO3-(ACT) 34.6 mmoll (20.0-26.0); METHB 0.9 % (0.0-1.5); O2HB 90.9 % (95.0-99.0); PO2(98.6) 65 mmHg (60-100); SAMPLE BLOOD; SAO2 93.7 % (95.0-100.0); THB 14.1 g/dL (11.5-17.4); pH(98.6) 7.26 (7.35-7.45)
[2019-05-26 10:12] LABS: BASO# 0.07 X1000 (0.0-0.2); BASO% 0.6 % (0.0-0.8); EOS# 0.03 X1000 (0.0-0.7); EOS% 0.3 % (0.0-10.0); HEMATOCRIT 45.9 % (42.0-52.0); HEMOGLOBIN 13.8 g/dL (14.0-18.0); IMM GRAN% 0.9 % (0.0-0.5); LYMPH# 1.69 X1000 (1.2-3.4); MCH 28.1 PG (27-31); MCHC 30.1 g/dL (33-37); MCV 93.5 FL (81-99); MONO# 0.98 X1000 (0.11-0.59); MONO% 8.7 % (1.7-9.3); MPV 9.5 FL (7.4-10.4); NEUT# 8.38 X1000 (1.4-6.5); NEUT% 74.5 % (42.2-75.2); PLT 171 X1000 (130-400); RBC 4.91 XMIL (4.7-6.1); RDW 13.2 % (11.5-14.5); WBC 11.25 X1000 (4.8-10.8)
[2019-05-26 10:12] LABS: MODALITY VENTIMASK; PCO2(98.6) 99 mmHg (35-45)
[2019-05-26 10:21] LABS: INR 1.51; PROTIME 18.5 Seconds (11.0-16.0)
[2019-05-26 10:22] LABS: PTT 33.5 Seconds (22.3-41.8)
[2019-05-26 10:35] LABS: ESTIMATED GFR > 60
[2019-05-26 10:38] LABS: AGAP 11; ALB/GLOB RATIO 1.4; ALBUMIN 3.9 g/dL (3.5-5.0); ALKALINE PHOSPHATASE 62 U/L (32-122); BUN 13 mg/dL (8-22); CALCIUM 8.9 mg/dL (8.8-10.2); CHLORIDE 89 mmol/L (98-107); CK PROFILE 140 U/L (24-204); COSMO 281; CREATININE 0.8 mg/dL (0.7-1.2); GLUCOSE 199 mg/dL (70-104); GOT 30 U/L (10-34); GPT 24 U/L (10-44); POTASSIUM 4.4 mmol/L (3.5-5.1); SODIUM 138 mmol/L (136-145); TCO2 38 mmol/L (25-35); TOTAL BILIRUBIN 0.38 mg/dL (0.20-1.00); TOTAL PROTEIN 6.6 g/dL (6.3-8.3)
--- NOTE | 2019-05-26 10:44 | Diag Imaging Result Doc PS360 ---
CHEST-PORTABLE - 05/26/2019 INDICATION: SOB COMPARISON: 01/20/2019 FINDINGS: Lung volumes are severely low. There is some patchy atelectasis in the lung bases. There is cardiomegaly and significant pulmonary vascular congestion. No definite pulmonary edema. No large pleural effusions. IMPRESSION: Nonspecific findings. Electronically signed by Guanakito Ovalle 05/26/2019 10:42 AM
[2019-05-26] MEDS ORDERED: SOLU-MEDROL IV ONE (10:50)
[2019-05-26] MEDS ORDERED: ALBUTEROL NEB INH ONE (10:50)
[2019-05-26] MEDS ORDERED: PULMICORT INH ONE (10:50)
[2019-05-26] MEDS ORDERED: DUONEB (A & A) INH ONE (10:50)
[2019-05-26] MEDS ORDERED: LASIX IV ONE (10:52)
--- NOTE | 2019-05-26 11:13 | PROVIDER DOCUMENTATION ---
This chart was entered by Rula Morris Scribe, acting as scribe for Alessandro Pizarro MD. HPI-Respiratory General - General Chief Complaint: Shortness of Breath Stated Complaint: RESPIRATORY DISTRESS Time Seen by Provider: 05/26/19 09:32 Source: patient, EMS, care home records Allergies/Adverse Reactions: Patient Allergies Allergy/AdvReac Type Severity Reaction Status Date / Time spironolactone AdvReac Unknown Verified 05/26/19 10:15 Home Medications: Home Medication List Medication Instructions Recorded Confirmed Last Taken Type Folic Acid 1 mg PO BID #0 tablet 02/10/14 05/26/19 07/09/14 09:00 Rx Iron Carbonyl/Ascorbic Acid 1 each PO BID #0 tablet 02/10/14 05/26/19 07/09/14 09:00 Rx [Icar-C] LISINOpril [Prinivil] 5 mg PO DAILY #0 tablet 02/10/14 05/26/19 07/09/14 09:00 Rx Lactobacillus Rhamnosus GG 1 each PO BID #0 capsule 02/10/14 05/26/19 07/09/14 09:00 Rx [Culturelle] Multivit,Fe,Ca,FA & Min [Thera M 1 each PO BID #0 tablet 02/10/14 05/26/19 07/09/14 09:00 Rx Plus] Rivaroxaban [Xarelto] 20 mg PO DAILY #30 tablet 02/10/14 05/26/19 07/09/14 09:00 Rx Sucralfate [Carafate] 1 gm PO Q6H #0 tablet 02/10/14 05/26/19 07/09/14 08:00 Rx Ropinirole HCl [Requip] 2 mg PO HS 07/09/14 05/26/19 07/08/14 02:00 History Tiotropium Ralls Inhaler 1 puff INH RTDAILY #2 inhaler 09/16/16 05/26/19 Unkno wn Rx [Spiriva] Calcium Polycarbophil [Fibercon] 625 mg PO DAILY 04/28/18 05/26/19 Unknown H istory Famotidine 20 mg PO BID 04/28/18 05/26/19 Unknown History Furosemide [Lasix] 20 mg PO QAM 04/28/18 05/26/19 Unknown History Ipratropium/Albuterol Sulfate 3 ml IH TID 04/28/18 05/26/19 Unknown History [Iprat-Albut 0.5-3(2.5) mg/3 ml] Potassium Chloride E.r. [Klor-Con] 10 meq PO TID 04/28/18 05/26/19 Unknown History Tamsulosin HCl 0.4 mg PO HS 04/28/18 05/26/19 Unknown History Trazodone [Desyrel] 50 mg PO QHS 04/28/18 05/26/19 Unknown History Hydrocodone/APAP 7.5 mg/325 mg 1 ea PO Q6H PRN PRN #30 tab 05/08/18 05/26/19 Unknown Rx [[place]-7.5] Polyethylene Glycol 3350 [Miralax] 17 gm PO BID powder, packet 05/08/18 05/26/19 Unknown Rx Albuterol Sulfate [Proair Hfa] 1 puff INH QAM 01/20/19 05/26/19 Unknown History Levothyroxine [Synthroid] 25 mcg PO QAM 01/20/19 05/26/19 Unknown History Biotin 1 tab PO DAILY 05/26/19 05/26/19 Unknown History Bisacodyl [Dulcolax] 1 supp [place] DIRECTED 05/26/19 05/26/19 Unknown History Buspirone HCl 1 tab PO BID PRN 05/26/19 05/26/19 Unknown History Furosemide [Lasix] 1 tab PO HS 05/26/19 05/26/19 Unknown History Melatonin 1 cap PO HS 05/26/19 05/26/19 Unknown History Ranitidine HCl 1 tab PO HS 05/26/19 05/26/19 Unknown History Ropinirole [Requip] 1 tab PO BID 05/26/19 05/26/19 Unknown History - History of Present Illness-Resp Nature of Presenting Problem: 69 y/o male with history of COPD, CHF, Pickwickian syndrome, and abdominal distension of unspecified origin presents to the ED with increasing SOB. jail states the patient's O2 sats dropped to 50-60 and improved to the 90's on non-rebreather. The patient falls asleep during questioning but denies fever, chest pain, n/v/d. Onset/Duration: reports: unsure Timing: reports: still present Episode Frequency: chronic episodes Current Respiratory Medication Therapy: Initiated see nurses note Associated Symptoms: denies: fever/chills Similar Symptoms Previously?: Yes Review of Systems - Adult - REVIEW OF SYSTEMS - ADULT Constitutional: denies: chills, fever, weight loss Eyes: reports: no symptoms reported Ears, Nose, Mouth & Throat: reports: no symptoms reported Cardiovascular: denies: chest pain, edema, palpitations Respiratory: reports: see HPI, shortness of breath. denies: hemoptysis, pleurisy Gastrointestinal: denies: nausea, vomiting Genitourinary: reports: no symptoms reported Musculoskeletal: reports: no symptoms reported Integumentary: reports: no symptoms reported Neurological: reports: no symptoms reported Psychiatric: reports: no symptoms reported Endocrine: reports: no symptoms reported Hematologic/Lymphatic: reports: no symptoms reported Allergic/Immunologic: reports: no symptoms reported All Other Systems: Reviewed and Negative Past History - Adult - PAST MEDICAL HISTORY-ADULT Review of Records: reports: Old Records Reviewed, Nursing Assessment Review, Medications Reviewed Major Childhood Illnesses: reports: denies history Cardiovascular: reports: A-Fib, CHF, HTN Respiratory: reports: COPD, sleep apnea Gastrointestinal: reports: cholelithiasis, GERD, other (food bolus, esoph spasms) Obstetrical/Gynecological: reports: denies history Genitourinary: reports: denies history Musculoskeletal: reports: arthritis Neurological: reports: denies history Endocrine/Immune: reports: Diabetes Other Conditions: reports: denies history - PRIOR SURGERIES/PROCEDURES Surgical/Procedure History: reports: appendectomy, cholecystectomy, joint replacement (TKR) - IMMUNIZATION STATUS Childhood Immunizations: See Nurse Assessment Flu Vaccine: See Nurse Assessment - FAMILY HISTORY Family History: reviewed, not pertinent - SOCIAL HISTORY Smoking: other (former smoker) Living Situation: care facility Physical Exam-General - PHYSICAL EXAM-ADULT Initial Vital Signs Reviewed: Yes - CONSTITUTIONAL General Appearance: alert, obese, other (falls asleep on exam and questioning) - RESPIRATORY Respiratory: wheezing (inspiratory and expiratory coarse), other (decreased air movement bilaterally, tachypneic) - CARDIOVASCULAR Cardiovascular: no edema - GASTROINTESTINAL (ABDOMEN) Abdominal Exam: normal bowel sounds, distended Progress - PLAN OF CARE/RESULTS Progress/Plan/Lab Results: Vital Signs - 8 hr 05/26/19 09:52 05/26/19 10:34 05/26/19 11:02 Temperature 99.7 F H Pulse Rate 105 H 95 H Respiratory Rate 24 20 Blood Pressure 108/71 O2 Sat by Pulse Oximetry 97 94 L Laboratory Results - last 24 hr 05/26/19 05/26/19 05/26/19 09:40 09:40 09:40 WBC 11.25 H RBC 4.91 Hgb 13.8 L Hct 45.9 MCV 93.5 MCH 28.1 MCHC 30.1 L RDW Std Deviation 13.2 Plt Count 171 MPV 9.5 Immature Gran % (Auto) 0.9 H Neut % (Auto) 74.5 Lymph % (Auto) 15.0 L [place] % (Auto) 8.7 Eos % (Auto) 0.3 Baso % (Auto) 0.6 Immature Gran # (Auto) 0.10 H Neut # (Auto) 8.38 H Lymph # (Auto) 1.69 [place] # (Auto) 0.98 H Eos # (Auto) 0.03 Baso # (Auto) 0.07 PT INR PTT (Actin FS) Specimen Type Sample Site pH pCO2 pO2 HCO3 Base Excess Oxyhemoglobin ABG O2 Sat (Calculated) ABG O2 Saturation ABG Carboxyhemoglobin ABG Methemoglobin Daniel Test A-a O2 Difference Total Hemoglobin Lactate Liter Flow Blood Gas Modality FiO2 % Sodium 138 Potassium 4.4 Chloride 89 L Carbon Dioxide 38 H Anion Gap 11 BUN 13 Creatinine 0.8 Estimated GFR/1.73 m2 > 60 BUN/Creatinine Ratio 16 Glucose 199 H Calculated Osmolality 281 Calcium 8.9 Total Bilirubin 0.38 AST 30 ALT 24 Alkaline Phosphatase 62 Creatine Kinase 140 Troponin T High Sens Nrk-W-Gdkoabumbvs Pept Total Protein 6.6 Albumin 3.9 Globulin 2.7 Albumin/Globulin Ratio 1.4 Plasma Lactate 1.6 05/26/19 05/26/19 05/26/19 09:40 09:40 09:40 WBC RBC Hgb Hct MCV MCH MCHC RDW Std Deviation Plt Count MPV Immature Gran % (Auto) Neut % (Auto) Lymph % (Auto) [place] % (Auto) Eos % (Auto) Baso % (Auto) Immature Gran # (Auto) Neut # (Auto) Lymph # (Auto) [place] # (Auto) Eos # (Auto) Baso # (Auto) PT 18.5 H INR 1.51 PTT (Actin FS) 33.5 Specimen Type Sample Site pH pCO2 pO2 HCO3 Base Excess Oxyhemoglobin ABG O2 Sat (Calculated) ABG O2 Saturation ABG Carboxyhemoglobin ABG Methemoglobin Daniel Test A-a O2 Difference Total Hemoglobin Lactate Liter Flow Blood Gas Modality FiO2 % Sodium Potassium Chloride Carbon Dioxide Anion Gap BUN Creatinine Estimated GFR/1.73 m2 BUN/Creatinine Ratio Glucose Calculated Osmolality Calcium Total Bilirubin AST ALT Alkaline Phosphatase Creatine Kinase Troponin T High Sens 108 H* Oil-S-Tysvpqgwfzp Pept 1326 H Total Protein Albumin Globulin Albumin/Globulin Ratio Plasma Lactate 05/26/19 10:05 WBC RBC Hgb Hct MCV MCH MCHC RDW Std Deviation Plt Count MPV Immature Gran % (Auto) Neut % (Auto) Lymph % (Auto) [place] % (Auto) Eos % (Auto) Baso % (Auto) Immature Gran # (Auto) Neut # (Auto) Lymph # (Auto) [place] # (Auto) Eos # (Auto) Baso # (Auto) PT INR PTT (Actin FS) Specimen Type ARTERIAL Sample Site R RADIAL pH 7.26 L pCO2 99 H* pO2 65 HCO3 34.6 H Base Excess 12.6 H Oxyhemoglobin 90.9 L ABG O2 Sat (Calculated) 18.0 ABG O2 Saturation 93.7 L ABG Carboxyhemoglobin 2.10 ABG Methemoglobin 0.9 Daniel Test YES A-a O2 Difference 168.0 Total Hemoglobin 14.1 Lactate 0.80 Liter Flow 12.0 Blood Gas Modality [place] FiO2 % 50.0 Sodium Potassium Chloride Carbon Dioxide Anion Gap BUN Creatinine Estimated GFR/1.73 m2 BUN/Creatinine Ratio Glucose Calculated Osmolality Calcium Total Bilirubin AST ALT Alkaline Phosphatase Creatine Kinase Troponin T High Sens Mir-Y-Oqnhopucvwu Pept Total Protein Albumin Globulin Albumin/Globulin Ratio Plasma Lactate Orders Category Date Time Status Cardiac Monitoring DIRECTED Care 05/26/19 09:57 Active Tran Cath Insertion ORDERED Care 05/26/19 11:10 Active IV Insertion ORDERED Care 05/26/19 09:57 Completed NG/OG/Feeding Tube Insertion ORDERED Care 05/26/19 10:23 Active Notify MD of + Sepsis Screen NOW Care 05/26/19 09:57 Active Notify Physician As Ordered Care 05/26/19 09:57 Active CHEST-PORTABLE [RAD] Stat Exams 05/26/19 09:58 Completed ABG [RESP] Routine Lab 05/26/19 10:05 Completed BLOOD CULTURE [BLDCUL] Stat Lab 05/26/19 10:05 Results CBC WITH DIFF [HEME] Stat Lab 05/26/19 09:40 Completed CK PROFILE [SP CHEM] Stat Lab 05/26/19 09:40 Completed COMPREHENSIVE METABOLIC PANEL [CHEM] Stat Lab 05/26/19 09:40 Completed LACTATE, PLASMA [CHEM] Lab 05/26/19 13:00 Uncollected LACTATE, PLASMA [CHEM] Lab 05/26/19 16:00 Uncollected LACTATE, PLASMA [CHEM] Q3H Lab 05/26/19 09:40 Completed PRO B-NATRIURETIC PEPTIDE Stat Lab 05/26/19 09:40 Completed PROTIME WITH INR [COAG] Stat Lab 05/26/19 09:40 Completed PTT [COAG] Stat Lab 05/26/19 09:40 Completed TROPONIN T HIGH SENSITIVITY Stat Lab 05/26/19 09:40 Completed URINALYSIS W/POSS RFLX CULT [URINALYSIS] Stat Lab 05/26/19 09:57 Uncollected Albuterol 2.5MG/Ipratrop 0.5MG [Duoneb (A & A)] Med 05/26/19 10:50 Discontinued 3 ml INH NOW ONE Albuterol [Albuterol Neb] Med 05/26/19 10:50 Discontinued 5 mg INH NOW ONE Budesonide [Pulmicort] Med 05/26/19 10:50 Discontinued 0.5 mg INH NOW ONE Dextrose 5%-0.45% NaCl Inj [D5 1/2 Ns] 250 ml Med 05/26/19 11:15 Ordered Norepinephrine [Levophed] 8 mg IV As Directed mls/hr Furosemide [Lasix] Med 05/26/19 10:52 Discontinued 80 mg IV NOW ONE Methylprednisolone Sod Succ [Solu-Medrol] Med 05/26/19 10:50 Discontinued 125 mg IV NOW ONE Aerosol Treatments Routine Oth 05/26/19 10:50 Completed Aerosol Treatments Stat Oth 05/26/19 10:50 Completed BIPAP Stat Oth 05/26/19 10:23 Active Oxygen Device Stat Oth 05/26/19 09:57 Completed EKG [EKG] Stat Ther 05/26/19 09:58 Ordered Result Diagrams: 05/26/19 09:40 05/26/19 09:40 - EKG 1 Time of EKG reading by physician:: 09:45 EKG Read and Signed by:: Alessandro Pizarro EKG Interpretation (*Must complete 3 of following elements*): Abnormal Rate: 105 Rhythm: Wide QRS w/premature supraventricular complex w/occasional PVC's [place]: left Comments: nonspecific intraventricular block, nonspecific T wave abnormality - XRAY 1 XRAY Study: Chest Impression: Abnormal (CHEST-PORTABLE - 05/26/2019 INDICATION: SOB COMPARISON: 01/20/2019 FINDINGS: Lung volumes are severely low. There is some patchy atelectasis in the lung bases. There is cardiomegaly and significant pulmonary vascular congestion. No definite pulmonary edema. No large pleural effusions. IMPRESSION: Nonspecific findings. Electronically signed by Guanakito Ovalle 05/26/2019 10:42 AM 05/26/19 1042 Interpreting Physician: Guanakito Ovalle MD Dictated Date/Time: 05/26/19 1041 cc: Alessandro Pizarro MD; Arielle Greenberg MD) - CONSULTS/PCP/HOSPITALIST Notification #1 *Consult/PCP/Hospitalist*: Ronni Viverosist Time Discussed: 10:27 Consult Disposition: Will see in ED, Admit Departure - Departure Date of Disposition Decision: 05/26/19 Time of Disposition Decision: 10:25 DIAGNOSIS: Respiratory failure, Hypercarbia, Acute diastolic CHF (congestive heart failure), COPD exacerbation, Diabetes Disposition: ADMITTED INPATIENT 09 Certified Medical Emergency: Emergent Condition: Fair Referrals and Follow-Ups: Arielle Greenberg MD [Primary Care Provider] - - Critical Care Note This patient required my direct & personal management of CC.: Yes Total Time (mins): 31 Critical Care Statement: This patient required my direct personal management to treat or rule out processes, the absence of which, could potentiallly result in sudden, clinically significant life or limb threatening deterioration. Attestation - Physician/ NEYMAR Attestation Patient care was provided by Advanced Practice Provider:: No The physician spent face to face time with patient:: Yes Advanced Practice Provider documentation review:: Supervising physician onsite and consulted in the evaluation and care of this patient. The physician did have a face to face encounter with the patient. This chart was documented by the indicated scribe, (Rula Morris Scribe) and accurately reflects the services I performed and decisions made by me, Alessandro Pizarro MD, as attested by the provider's signature.
[2019-05-26] MEDS ORDERED: LEVOPHED 8 MG in D5 1/2 NS 250 ML IV SCH (11:15)
--- NOTE | 2019-05-26 11:56 | EKG Report ---
Test Performed on : 05/26/2019 09:40:50 AM Test Reason : CP Blood Pressure : / mmHG Vent. Rate : 105 BPM Atrial Rate : 077 BPM P-R Int : 000 ms QRS Dur : 128 ms QT Int : 374 ms P-R-T Axes : 000 -39 026 degrees QTc Int : 494 ms Wide QRS rhythm. with premature supraventricular complexes. and with occasional premature ventricular complexes. Left axis deviation Nonspecific intraventricular block Nonspecific T wave abnormality Abnormal ECG When compared with ECG of 03-MAY-2018 16:14, Wide QRS rhythm. has replaced Sinus rhythm. Unconfirmed Result
[2019-05-26] MEDS ORDERED: ZOFRAN IV PRN (12:12)
[2019-05-26] MEDS ORDERED: DUONEB (A & A) INH PRN (12:12)
[2019-05-26] MEDS ORDERED: SODIUM CHLORIDE 0.9% INJ SCH (12:15)
[2019-05-26] MEDS ORDERED: VANCOMYCIN IV PER PHARMACY MISC SCH (12:30)
[2019-05-26 13:12] LABS: URINE SOURCE CATH
[2019-05-26 13:18] LABS: BILIRUBIN URINE NEGATIVE (NEGATIVE); BLOOD URINE NEGATIVE (NEGATIVE); COLOR YELLOW; GLUCOSE URINE NEGATIVE (NEGATIVE); KETONE URINE NEGATIVE (NEGATIVE); LEUKOCYTES URINE NEGATIVE (NEGATIVE); NITRITE URINE NEGATIVE (NEGATIVE); PH URINE 5.5; PROTEIN URINE TRACE mg/dL (NEGATIVE); TURBIDITY URINE CLEAR (CLEAR); UROBILINOGEN URINE 3 mg/dL (NORMAL)
[2019-05-26 13:27] LABS: UR EPITHELIAL CELLS <10 /HPF (<10); URINE BACTERIA NEGATIVE /HPF; URINE RBC <10 /HPF (<10); URINE WBC <10 /HPF (<10)
[2019-05-26 13:35] LABS: URINE CASTS NONE SEEN; URINE CRYSTALS NONE SEEN; URINE SMALL ROUND CELLS NONE SEEN; URINE YEAST PRESENT
[2019-05-26] MEDS: MAXIPIME 1 GM in NS 50 ML IV SCH (13:38)
[2019-05-26] MEDS: PROTONIX IV SCH (13:38)
[2019-05-26] MEDS: DUONEB (A & A) INH SCH ×3 (15:34→23:46)
[2019-05-26] MEDS ORDERED: LASIX ONE (16:46)
[2019-05-26] MEDS: VANCOMYCIN 2,000 MG in NS 500 ML IV SCH (16:49)
[2019-05-26] MEDS: HUMALOG SUBQ SCH ×2 (19:03→20:26)
[2019-05-26] MEDS: SOLU-MEDROL IV SCH (19:04)
--- NOTE | 2019-05-26 19:26 | HISTORY AND PHYSICAL ---
ADDENDUM: HISTORY: I have seen and examined Mr. Velez in the ER today. Mr. Velez is a resident of [facility] he said for the past 6 years. He was brought in today because he was having difficulty breathing and altered mental status on presentation. It was reported in the ER note that he was found to have saturation to the 50s and 90s in the correction that got improved with non-rebreather. It went up to the 90s. However Mr. Velez fell asleep while he was being questioned. His ABG showed that his pCO2 was 99. At the time of the encounter, however, he had spent a couple hours on the BiPAP. He was getting ready to be transported to the ICU. He was more alert and more rationally communicating. OBJECTIVE: Vital signs: Blood pressure is 108/72, pulse of 105, respirations 24, temperature is 99.7 degrees. General: Mr. Velez is a 69-year-old, elderly, male. He was in bed in no distress. HEENT: Mucosa is pink and moist. Anicteric. Acyanotic. Neck: Supple. Chest: Air entry was bilaterally. There is some diffuse and expiratory wheezing in both lungs. Cardiovascular: Regular rate and rhythm. Abdomen: Soft. Extremities: No pedal edema. There is an old scar on the right knee from previous surgeries. LABORATORY DATA: Has also been reviewed. WBCs 11.23. Chemistry is unremarkable. The patient's troponin is 108. ProBNP is minimally elevated. IMAGING STUDIES: Show a chest x-ray, low lung volumes with patchy atelectasis in the lung bases. There is cardiomegaly and significant pulmonary vascular congestion. ASSESSMENT: 1. Altered mental status, most likely from CO2 narcosis, improved. 2. Xzhgc-rt-uucyxcx hypercarbic respiratory failure. This seems to have improved some with BiPAP. We are going to use that throughout the night and recheck his ABG in the morning and make changes accordingly. 3. Acute hypoxemic respiratory failure, improved. 4. History of chronic obstructive pulmonary disease with possible exacerbation. We will continue with standard of care including antibiotics, steroids, and nebulization. 5. History of obstructive sleep apnea, noted. 6. Resident of a correction. 7. Bed-bound with wheelchair mobility. Mr. Velez refers to have been bedbound for the past 5 years, and the reason is because he said he has gotten lazy. He said he moves around with a wheelchair at the correction. Please refer to the details of the history and physical that has been dictated by the [employer]ING [employer] OPER[employer] in the chart. I have reviewed it and discussed the plan with her. cc: Diogo Bustillos MD
--- NOTE | 2019-05-26 19:53 | HISTORY AND PHYSICAL ---
CHIEF COMPLAINT: Hypoxemia. HPI: This is a 69-year-old gentleman with a prior history of COPD, morbid obesity, obesity hypoventilation syndrome, atrial fibrillation, who presented to the emergency room via EMS from [facility]. The care home stated that the patient was found in respiratory distress having a saturation in the 50s on 5 L nasal cannula. He was placed on a nonrebreather and saturation increased to 96% in route to the hospital. On arrival to the emergency room he was tachypneic, respirations ranging from 20 to 26. He was placed on BiPAP. Saturations stayed 96 to 100 percent with respirations in the 18 to 20 range. He denied any fevers or chills, any cough, chest pain. The patient reports no fevers, chills, any chest pain. He stated that he just had increasing shortness of breath. PAST MEDICAL HISTORY: 1. Chronic obstructive pulmonary disease. 2. Morbid obesity. 3. Paroxysmal atrial fibrillation. 4. Folic acid deficiency. 5. Chronic pain disorder. 6. Iron deficiency anemia. 7. Gastroesophageal reflux disease. 8. History of pulmonary embolism and deep venous thrombosis. 9. Hypertension. 10. Congestive heart failure. 11. Pickwickian syndrome. PAST SURGICAL HISTORY: Right knee arthroplasty and cholecystectomy. FAMILY HISTORY: Is positive for mother having heart disease and lung cancer, father had hypertension. SOCIAL HISTORY: He is a resident at [facility]. He is bedbound and wheelchair bound. He does not ambulate. He denies alcohol, tobacco, or illicit drug use. ALLERGIES: No documented allergies. HOME MEDICATIONS: A list will be obtained by the nursing staff and once verified will review and restart as appropriate. REVIEW OF SYSTEMS: Discussed with patient with pertinent positives stated in the HPI. He denied any syncope or dizziness, any chest pain or palpitations, any productive cough, fevers or chills, any nausea, vomiting, diarrhea, constipation, black or bloody vomitus or stools, any hematuria, dysuria, frequency, urgency. PHYSICAL EXAMINATION: GENERAL: This is a 69-year-old gentleman who is sitting up in the stretcher in the emergency room in no distress. VITAL SIGNS: Blood pressure is 120/84 with a heart rate of 98, respirations are 22, temperature is 99 degrees with O2 saturations that are 95 to 97 percent on BiPAP. HEENT: Pupils are equal, round, react to light. EOMs are intact. Sclerae anicteric. Head is normocephalic, atraumatic. Mucous membranes are moist. NECK: Supple with trachea midline. CARDIOVASCULAR: Regular rate and rhythm, S1 and S2 appreciated. Palpable pulses are palpable x4 extremities. PULMONARY: Breath sounds are diminished throughout with wheezes. Chest rises and falls symmetric respiration . GASTROINTESTINAL: Abdomen soft, nontender, nondistended. Bowel sounds in all 4 quadrants. SKIN: Warm and dry. LABS: WBC is 11.2 with hemoglobin 13.8, hematocrit 45.9 and platelets 171,000. Sodium 138, potassium 4.4, BUN 13, creatinine 0.8 with a glucose of 199. Troponin T is 108. Chest x-ray reveals lung volumes are severely low. There is patchy atelectasis in the lung bases. There is cardiomegaly and significant pulmonary vascular congestion. No pulmonary edema, no large pleural effusions. ASSESSMENT AND PLAN: 1. Acute hypoxemic respiratory failure. 2. Acute hypercarbic respiratory failure. 3. Chronic obstructive pulmonary disease acute exacerbation. 4. Congestive heart failure. 5. History of atrial fibrillation. 6. History of pulmonary embolism and deep venous thrombosis. PLAN: The patient will be admitted to ICU. placed on telemetry. BiPAP. DuoNeb q.4 hours and q.2 hours p.r.n. IVsteroids. vancomycin and cefepime. continue his Xarelto. identify his home medications and continue as appropriate. Pattern blood glucose with sliding scale insulin. blood cultures and sputum culture. diabetic diet. troponins and a CBC, CMP in the morning. Plan was discussed with Dr. Bustillos. Further treatments pending hospital course. Dictated by SHAE Rosales for Digoo Bustillos MD cc: SHAE Rosales MD [facility]
[2019-05-26 20:08] LABS: ALLEN TEST YES; BE 13.9 mmoll (-3.0-3.0); BLOOD TYPE ARTERIAL; HCO3-(ACT) 35.7 mmoll (20.0-26.0); METHB 0.9 % (0.0-1.5); O2HB 95.3 % (95.0-99.0); PO2(98.6) 95 mmHg (60-100); SAMPLE BLOOD; SAO2 97.4 % (95.0-100.0); THB 14.1 g/dL (11.5-17.4); pH(98.6) 7.41 (7.35-7.45)
[2019-05-26 20:10] LABS: MODALITY BI PAP; PCO2(98.6) 66 mmHg (35-45)
[2019-05-26] MEDS ORDERED: TYLENOL PR PRN (20:13)
[2019-05-26] MEDS ORDERED: TYLENOL PO PRN (20:14)
--- NOTE | 2019-05-27 00:33 | EKG Report ---
Test Performed on : 05/26/2019 8:05:30 PM Test Reason : EVAL Blood Pressure : / mmHG Vent. Rate : 083 BPM Atrial Rate : 072 BPM P-R Int : 000 ms QRS Dur : 120 ms QT Int : 400 ms P-R-T Axes : 000 -44 -15 degrees QTc Int : 470 ms Atrial fibrillation. with a competing junctional pacemaker. with premature ventricular or aberrantly conducted complexes. Left axis deviation Incomplete left bundle branch block Abnormal ECG When compared with ECG of 26-MAY-2019 09:40, (Unconfirmed) Atrial fibrillation. has replaced Wide QRS rhythm. Confirmed by Kaleb MORRIS, Juan Pablo Reeves ([id number]) on 05/27/2019 5:59:48 PM
[2019-05-27] MEDS: MAXIPIME 1 GM in NS 50 ML IV SCH ×2 (00:42→13:31)
[2019-05-27] MEDS: SOLU-MEDROL IV SCH ×3 (02:28→16:19)
[2019-05-27] MEDS: DUONEB (A & A) INH SCH ×6 (03:14→23:19)
[2019-05-27 04:36] LABS: ALLEN TEST YES; BE 12.5 mmoll (-3.0-3.0); BLOOD TYPE ARTERIAL; HCO3-(ACT) 34.6 mmoll (20.0-26.0); METHB 0.6 % (0.0-1.5); O2(CT) 18.5 mL/dL (15.0-23.0); O2HB 93.7 % (95.0-99.0); PO2(98.6) 69 mmHg (60-100); SAMPLE BLOOD; SAO2 95.4 % (95.0-100.0); pH(98.6) 7.39 (7.35-7.45)
[2019-05-27 04:37] LABS: MODALITY BI PAP; PCO2(98.6) 67 mmHg (35-45)
[2019-05-27 04:46] LABS: BASO# 0.01 X1000 (0.0-0.2); BASO% 0.2 % (0.0-0.8); HEMATOCRIT 42.7 % (42.0-52.0); HEMOGLOBIN 12.9 g/dL (14.0-18.0); IMM GRAN# 0.07 X1000 (0.0-0.04); IMM GRAN% 1.2 % (0.0-0.5); LYMPH# 1.06 X1000 (1.2-3.4); LYMPH% 17.5 % (20.5-51.1); MCH 27.7 PG (27-31); MCHC 30.2 g/dL (33-37); MCV 91.6 FL (81-99); MONO# 0.13 X1000 (0.11-0.59); MONO% 2.2 % (1.7-9.3); MPV 9.8 FL (7.4-10.4); NEUT# 4.77 X1000 (1.4-6.5); NEUT% 78.9 % (42.2-75.2); PLT 173 X1000 (130-400); RBC 4.66 XMIL (4.7-6.1); RDW 13.2 % (11.5-14.5); WBC 6.04 X1000 (4.8-10.8)
[2019-05-27 05:15] LABS: AGAP 11; ALB/GLOB RATIO 1.1; ALBUMIN 3.4 g/dL (3.5-5.0); ALKALINE PHOSPHATASE 51 U/L (32-122); BUN 23 mg/dL (8-22); CALCIUM 8.9 mg/dL (8.8-10.2); CHLORIDE 91 mmol/L (98-107); COSMO 286; CREATININE 0.9 mg/dL (0.7-1.2); ESTIMATED GFR > 60; GLUCOSE 255 mg/dL (70-104); GOT 22 U/L (10-34); GPT 20 U/L (10-44); MAGNESIUM 1.7 mg/dL (1.5-2.7); POTASSIUM 3.7 mmol/L (3.5-5.1); SODIUM 137 mmol/L (136-145); TCO2 35 mmol/L (25-35); TOTAL PROTEIN 6.4 g/dL (6.3-8.3)
[2019-05-27] MEDS: VANCOMYCIN 2,000 MG in NS 500 ML IV SCH ×2 (05:48→20:34)
[2019-05-27] MEDS: HUMALOG SUBQ SCH ×4 (07:24→22:34)
[2019-05-27] MEDS: XARELTO PO SCH (08:02)
--- NOTE | 2019-05-27 08:58 | Diag Imaging Result Doc PS360 ---
EXAM: CHEST-PORTABLE 05/27/2019 HISTORY: dyspnea TECHNIQUE: AP portable at 0536 COMMENT: There is cardiomegaly. There is greater obscuration of the diaphragms than on the previous study of 05/26/2019. This may be due to atelectasis or pneumonia. Otherwise are has been no appreciable change. IMPRESSION: Pulmonary edema and bibasilar atelectasis versus pneumonia. Electronically signed by Misbah Shaikh 05/27/2019 8:55 AM
[2019-05-27] MEDS: LASIX IV SCH ×2 (09:30→20:35)
[2019-05-27] MEDS ORDERED: BUSPAR PO PRN (12:14)
--- NOTE | 2019-05-27 12:56 | PROGRESS NOTE ---
DATE: 05/27/2019 SUBJECTIVE: This morning, Mr. Velez refers to be doing a lot better. He is more awake, alert. He is conversational. Denies any new complaints. OBJECTIVE: Vital Signs: Blood pressure is 111/76, pulse of 89, respirations 22, temperature is 99.4 degrees, the patient is saturating about 94% on 6 L. General: Mr. Velez is a 69-year-old, morbidly obese, gentleman. BMI is 50.2. He is in bed. He still has the supplemental oxygen on board. HEENT: Mucosa is pink and moist. Anicteric. Acyanotic. Neck: Supple. Chest: Good air entry bilaterally. There were no crepitations. There were, however, some distant diffuse expiratory wheezing. Cardiovascular: Regular rate and rhythm. No murmurs, no rubs, no gallops. GI: Abdomen is soft. It is distended, but nontender. Bowel sounds present. Extremities: No pedal edema. There is an old scar on the right knee from previous knee surgery. [employer]: The patient is awake, alert, oriented x4. LABORATORY DATA: WBC is 6.04, hemoglobin is 12.9, platelet count of 173,000. Chemistry is also reviewed. Glucose of 255. IMAGING STUDIES: Chest x-ray this morning continues to show pulmonary edema and bibasilar atelectasis versus pneumonia. MEDICATIONS: The patient's current medications have all been reviewed. He is on cefepime and vancomycin. He is also on methylprednisolone. ASSESSMENT: 1. Altered mental status on presentation secondary to CO2 narcosis. This is improved. 2. Acute on chronic hypercarbic respiratory failure. The patient was placed on bilevel positive airway pressure therapy. Blood gases this morning show a pCO2 of 67 from 99 on admission. He will continue using the bilevel positive airway pressure every night. 3. Acute hypoxemic respiratory failure. The patient continues to be on supplemental oxygen. 4. History of chronic obstructive pulmonary disease with exacerbation. Will continue with the current antimicrobial coverage, steroids, nebulization. Respiratory Therapy on board. 5. Obstructive sleep apnea. The patient will use continuous positive airway pressure. 6. Bedbound with wheelchair mobility. Physical Therapy has been consulted. 7. Resident of [facility]. Noted for discharge. 8. Pulmonary edema, presumably from congestive heart failure with preserved ejection fraction. The patient's proBNP was minimally elevated at 1326. He is on diuretic therapy. cc: Diogo Bustillos MD
[2019-05-27] MEDS: PROTONIX IV SCH (13:31)
--- NOTE | 2019-05-27 16:03 | ECHO REPORT ---
ORDER DATE: 05/27/2019 INDICATION FOR THE STUDY: COPD, morbid obesity, atrial fibrillation, hypertension. FINDINGS: 1. The right atrium appears normal in size. 2. Mild tricuspid regurgitation. RV systolic pressure of 40. 3. The right ventricle is poorly visualized but appears to be enlarged. 4. No significant pulmonic insufficiency. 5. Severe left atrial enlargement with a volume index of 52. 6. No mitral valve prolapse. Mild mitral regurgitation. 7. Dilated left ventricle with an end-diastolic dimension of 6.4 cm. Normal wall thicknesses with a posterior and interventricular septal wall thickness 1 cm. The patient's ventricle measured 6.9 cm in March 2018. Likely normal LV systolic function with an estimated EF in the 50 to 55 percent range. There is difficulty with this study secondary to the patient's morbid obesity as well as irregularity of rate. Could consider alternative modality such as a MUGA scan to evaluate. 8. Aortic valve opens well. Mild insufficiency. No stenosis. 9. Aorta appears dilated at 3.9 cm in the root. This is similar to the previous echocardiogram in March 2018. 10. No pericardial effusion identified. cc: MD Diogo Simon MD
--- NOTE | 2019-05-27 17:06 | CARDIOLOGY CONSULTATION ---
DATE: 05/27/2019 REASON FOR CONSULTATION: Atrial fibrillation. HISTORY OF PRESENT ILLNESS: The patient is a 69-year-old gentleman with history of COPD, morbid obesity, hyperventilation syndrome, history of atrial fibrillation, came to the emergency room from [facility]. He was found to be in respiratory distress. Complaining of shortness of breath. He was placed on non-rebreather and saturation increased to 96% on arrival in the emergency room. He was tachypneic as well. He was placed on BiPAP. He denies any fevers or chills from a cardiac standpoint. Denies any chest pain suggestive of angina. There is no history of cough or any mucoid or mucopurulent expectoration REVIEW OF SYSTEM: A 14-point review of systems was done:Gastrointestinal System: There is no history of nausea, vomiting, diarrhea. There is no history of hematemesis or melena. Central nervous system: No focal weakness to suggest a CVA or TIA. Genitourinary System: There is no dysuria or hematuria. PAST MEDICAL HISTORY: 1. COPD. 2. Morbid obesity. 3. Atrial fibrillation. 4. Folic acid deficiency. 5. Chronic pain. 6. Decubitus ulcers. 7. Gastroesophageal reflux disease. 8. History of DVT, pulmonary embolism. Has IVC filter. 9. Pickwickian syndrome. 10. History of heart failure. 11. Right knee arthroplasty. 12. Cholecystectomy. HOME MEDICATIONS: 1. Folic acid, iron. 2. Multivitamins. 3. Xarelto 20. 4. Sucralfate 1 g q.6. 5. Lisinopril 5. 6. Requip. 7. Spiriva inhalers. 8. Famotidine 20. 9. Tamsulosin. 10. Potassium supplements. 11. Lasix 40 mg a day. 12. MiraLAX. 13. Hydrocodone. 14. Levothyroxine. 15. Melatonin. 16. Ranitidine. 17. Bisacodyl. CURRENT MEDICATIONS: He has been started on antibiotics cefepime, Lasix 40 mg IV b.i.d., and steroids methylprednisone. In addition, he also received vancomycin. PHYSICAL EXAMINATION: Vital Signs: Blood pressure was 120/84. Cardiovascular: Jugular venous pressure could not be assessed. First and second heart sounds were heard. There was no S3 gallop. Respiratory: Decreased breath sounds at the bases. A few scattered wheezes. Abdomen: Soft, obese, nontender. There was no guarding or rigidity. Bowel sounds were heard. Central nervous system: Alert and was moving all 4 extremities. Extremities: Reveal pedal edema. ASSESSMENT: Mr. Orlando Velez is a 69-year-old gentleman who has chronic obstructive pulmonary disease, atrial fibrillation, Pickwickian syndrome, gastroesophageal reflux disease. History of deep venous thrombosis, pulmonary embolism in the past. Hypertension, history of heart failure. He is admitted with increasing shortness of breath. He has acute hypoxemic respiratory failure and hypercarbic respiratory failure. He also has a history of heart failure. His recent echocardiogram revealed ejection fraction of 50 to 55 percent. Electrocardiogram revealed atrial fibrillation, as well as has had paroxysmal atrial fibrillation with normal sinus rhythm. RECOMMENDATIONS: 1. Continue with IV Lasix. 2. His respiratory failure is secondary to worsening of his heart failure which is again is secondary to worsening of his respiratory failure which is multifactorial. He also has Pickwickian syndrome. 3. We will continue with Xarelto which he has been taking. 4. He had episodes of low heart rate in the 60s as well which probably is secondary to his hypoxemia. Continue with his DuoNebs as planned. 5. He has been started on antibiotics with vancomycin and cefepime. He has bedsores also. I have not made any other changes to medications. Thank you for the consult. cc: Fermin Russell MD
--- NOTE | 2019-05-27 18:01 | EKG Report ---
Test Performed on : 05/27/2019 06:42:25 AM Test Reason : follow up Blood Pressure : / mmHG Vent. Rate : 073 BPM Atrial Rate : 120 BPM P-R Int : 198 ms QRS Dur : 134 ms QT Int : 426 ms P-R-T Axes : 058 -49 -08 degrees QTc Int : 469 ms Sinus tachycardia. with blocked premature atrial complexes. with occasional premature ventricular com plexes. Left axis deviation Nonspecific intraventricular block Nonspecific T wave abnormality Abnormal ECG When compared with ECG of 26-MAY-2019 20:05, (Unconfirmed) Sinus rhythm. has replaced Atrial fibrillation. Nonspecific T wave abnormality now evident in Anterior leads Confirmed by Kaleb MORRIS, Juan Pablo Reeves ([id number]) on 05/27/2019 6:01:56 PM
[2019-05-27] MEDS: ICAR-C PO SCH (20:35)
[2019-05-27] MEDS: FLOMAX PO SCH (20:35)
[2019-05-27] MEDS: PEPCID PO SCH (20:35)
[2019-05-27] MEDS: REQUIP PO SCH (20:35)
[2019-05-27] MEDS: FOLIC ACID PO SCH (20:35)
[2019-05-27] MEDS: CULTURELLE PO SCH (20:35)
[2019-05-27] MEDS: DESYREL PO SCH (20:35)
[2019-05-27] MEDS: MELATONIN PO SCH (20:35)
[2019-05-27] MEDS: DULCOLAX PR SCH (22:34)
[2019-05-27] MEDS: MIRALAX PO SCH (22:34)
[2019-05-28] MEDS: SOLU-MEDROL IV SCH ×3 (01:33→17:33)
[2019-05-28] MEDS: MAXIPIME 1 GM in NS 50 ML IV SCH ×2 (01:33→14:03)
[2019-05-28] MEDS: DUONEB (A & A) INH SCH ×6 (03:52→23:47)
[2019-05-28] MEDS: SYNTHROID PO SCH (06:12)
[2019-05-28] MEDS: HUMALOG SUBQ SCH ×4 (06:24→21:13)
[2019-05-28] MEDS: VANCOMYCIN 2,000 MG in NS 500 ML IV SCH ×2 (09:39→19:38)
[2019-05-28] MEDS: PEPCID PO SCH ×2 (09:40→20:38)
[2019-05-28] MEDS: CULTURELLE PO SCH ×2 (09:40→20:38)
[2019-05-28] MEDS: LASIX IV SCH ×2 (09:40→19:39)
[2019-05-28] MEDS: ICAR-C PO SCH ×2 (09:40→20:38)
[2019-05-28] MEDS: XARELTO PO SCH (09:40)
[2019-05-28] MEDS: FOLIC ACID PO SCH ×2 (09:40→20:38)
[2019-05-28] MEDS: MIRALAX PO SCH (09:40)
[2019-05-28] MEDS: BIOTIN PO SCH (09:56)
[2019-05-28] MEDS: PROTONIX IV SCH (14:03)
--- NOTE | 2019-05-28 15:55 | PROGRESS NOTE ---
DATE: 05/28/2019 Today Mr. Velez was seen on the medical floor. He refers to be doing well. He was off the BiPAP. He was very clear in his thought process. OBJECTIVE: Vital signs: Blood pressure is 105/65, pulse of 62, respirations 14, temperature 98.4 degrees. Patient is saturating 97%. General: Mr. Velez is a 69-year-old gentleman. He is in bed. He is obese. BMI is above 50. Chest: Good air entry bilateral. There were no crepitations. Some few diffuse expiratory wheezing. Cardiovascular: Regular rate and rhythm. Abdomen: Soft, nontender. Bowel sounds present. Extremities: No pedal edema. There is an old scar on the right knee from previous knee surgery. LEATHER GRADER: Patient is awake, alert, and oriented x4. LABORATORY DATA: No new laboratory data today. X-RAY DATA: No imaging studies. PATIENT MEDICATIONS: Have all been reviewed and no changes. Today is day 2 on vancomycin and cefepime. ASSESSMENT: 1. Altered mental status on presentation secondary to CO2 narcosis, improved. 2. Acute on chronic hypercarbic respiratory failure. This has improved with BiPAP therapy. 3. Acute hypoxemic respiratory failure. Patient is back on supplemental oxygen. 4. COPD with moderate to severe exacerbation. The patient is on antibiotics, steroids and bronchodilation therapy. 5. Obstructive sleep apnea. Continue with CPAP use at night. 6. Bed-bound with wheelchair mobility noted. Physical therapy will be consulted. 7. Pulmonary edema, presumably from congestive heart failure with preserved ejection fraction. The patient is on diuretic therapy. He seems to be breathing a lot better. We will get a chest x-ray tomorrow morning to follow up accordingly. 8. Resident of [facility]. The patient will be discharged there, hopefully tomorrow. cc: Diogo Bustillos MD
--- NOTE | 2019-05-28 17:07 | EKG Report ---
Test Performed on : 05/28/2019 4:55:53 PM Test Reason : Telemetry Blood Pressure : / mmHG Vent. Rate : 067 BPM Atrial Rate : 105 BPM P-R Int : 000 ms QRS Dur : 132 ms QT Int : 398 ms P-R-T Axes : 000 -41 022 degrees QTc Int : 420 ms Atrial fibrillation. with premature ventricular or aberrantly conducted complexes. Left axis deviation Nonspecific intraventricular block Nonspecific T wave abnormality Abnormal ECG When compared with ECG of 27-MAY-2019 06:42, Atrial fibrillation. has replaced Sinus rhythm. Confirmed by Kaleb MORRIS, Juan Pablo Reeves ([id number]) on 05/30/2019 7:29:39 AM
[2019-05-28] MEDS: SPIRIVA INH SCH (17:45)
[2019-05-28] MEDS: DESYREL PO SCH (20:38)
[2019-05-28] MEDS: FLOMAX PO SCH (20:38)
[2019-05-28] MEDS: REQUIP PO SCH (20:38)
[2019-05-28] MEDS: MELATONIN PO SCH (20:38)
[2019-05-29] MEDS: MAXIPIME 1 GM in NS 50 ML IV SCH ×2 (02:25→13:09)
[2019-05-29] MEDS: SOLU-MEDROL IV SCH ×3 (02:25→17:09)
[2019-05-29] MEDS: DUONEB (A & A) INH SCH ×6 (03:39→23:02)
[2019-05-29] MEDS: MIRALAX PO SCH ×2 (04:14→09:12)
[2019-05-29 05:30] LABS: ALLEN TEST YES; BE 8.7 mmoll (-3.0-3.0); BLOOD TYPE ARTERIAL; HCO3-(ACT) 31.6 mmoll (20.0-26.0); O2(CT) 26.5 mL/dL (15.0-23.0); O2HB 95.5 % (95.0-99.0); PO2(98.6) 110 mmHg (60-100); SAMPLE BLOOD; SAO2 97.4 % (95.0-100.0); THB 19.7 g/dL (11.5-17.4); pH(98.6) 7.35 (7.35-7.45)
[2019-05-29 05:33] LABS: MODALITY BI PAP; PCO2(98.6) 70 mmHg (35-45)
[2019-05-29] MEDS: HUMALOG SUBQ SCH ×3 (06:17→17:08)
[2019-05-29] MEDS: SYNTHROID PO SCH (06:17)
[2019-05-29] MEDS: SPIRIVA INH SCH (07:57)
[2019-05-29 08:02] LABS: HEMOGLOBIN A1C 6.7 % (4.8-6.0)
[2019-05-29 08:14] LABS: AGAP 10; ALBUMIN 3.3 g/dL (3.5-5.0); BUN 34 mg/dL (8-22); CALCIUM 8.6 mg/dL (8.8-10.2); CHLORIDE 94 mmol/L (98-107); COSMO 296; CREATININE 0.8 mg/dL (0.7-1.2); ESTIMATED GFR > 60; GLUCOSE 266 mg/dL (70-104); PHOSPHORUS 3.1 mg/dL (2.7-4.5); POTASSIUM 3.6 mmol/L (3.5-5.1); SODIUM 140 mmol/L (136-145); TCO2 36 mmol/L (25-35)
[2019-05-29] MEDS: VANCOMYCIN 2,000 MG in NS 500 ML IV SCH (09:10)
[2019-05-29] MEDS: BIOTIN PO SCH (09:10)
[2019-05-29] MEDS: CULTURELLE PO SCH ×2 (09:11→21:21)
[2019-05-29] MEDS: XARELTO PO SCH (09:11)
[2019-05-29] MEDS: PEPCID PO SCH ×2 (09:11→21:21)
[2019-05-29] MEDS: FOLIC ACID PO SCH ×2 (09:11→21:21)
[2019-05-29] MEDS: ICAR-C PO SCH ×2 (09:11→21:21)
[2019-05-29] MEDS ORDERED: LANTUS INSULIN SUBQ ONE (11:02)
--- NOTE | 2019-05-29 14:31 | PROGRESS NOTE ---
DATE: 05/29/2019 SUBJECTIVE: I have seen and examined Mr. Velez today. He refers to be feeling a lot better now. He said his shortness of breath has improved. He is currently off the BiPAP. OBJECTIVE: Vital Signs: Blood pressure is 113/64, pulse of 76, respirations are 18, temperature is 98.4 degrees. General Examination: Mr. Velez is a 69-year-old, gentleman. He is in bed. Not seemingly distressed. HEENT: Mucosa is pink and moist. Anicteric. Acyanotic. Neck: Supple. The patient is obese with a BMI above 50. Respiratory System: Good air entry bilaterally. No crepitations. Some distant expiratory wheezing auscultated. Cardiovascular: Regular rate and rhythm. There are no murmurs, no rubs, no gallops. GI: Abdomen is soft. Distended but nontender. Bowel sounds are present. Extremities: No pedal edema. Some old scars on the right knee from previous knee surgery. ETCHER ELECTROLYTIC: The patient is awake, alert, and oriented, and followed commands. Laboratory Data: The patient's pH was 7.35 this morning, with a pCO2 of 70, PaO2 of 110, with mild lactic acidosis. The chemistry for most part is unremarkable. The bicarb is slightly elevated at 36. BUN is also slightly elevated at 23, glucose is 239. There are no new imaging studies. The patient's current medications have all been reviewed. No new changes except the IV Lasix has been discontinued because of elevated BUN as well as some alkalosis by the serum sample. ASSESSMENT: 1. Altered mental status on presentation secondary to global encephalopathy from CO2 narcosis, resolved. 2. Acute on chronic hypercarbic respiratory failure. This had improved yesterday with the use of BiPAP. However, this morning, it had gone up to 70. We will get pulmonary medicine to evaluate him as well. 3. Acute on chronic respiratory failure. Patient continues to be on supplemental oxygen. 4. Chronic obstructive pulmonary disease with moderate to severe exacerbation. The patient is on antibiotics, steroids, and bronchodilation therapy. 5. Obstructive sleep apnea. Patient uses CPAP at home. 6. Pulmonary edema, presumably from congestive heart failure with preserved ejection fraction, improved. 7. Metabolic alkalosis with elevated BUN, consistent with mild intravascular depletion. We will discontinue the intravenous diuretics. We will also encourage Mr. Velez to hydrate himself well orally. We will re-evaluate his labs in the morning. 8. Resident of [facility] with bedbound status, wheelchair for mobility noted. The patient will be returning back to [facility]. 9. Newly diagnosed diabetes mellitus with presenting A1c of 6.7. His glucoses have been fairly elevated during the hospital course. The patient has been started on an insulin regimen. However, I think he will be okay to be transitioned to oral hypoglycemic agent starting with metformin initially and see if he tolerates it, and get the glucose regulated. PLAN: In general, Mr. Velez is a 69-year-old, gentleman who is bedbound and wheelchair-bound for mobility, a resident of [facility]. Presented to the emergency room because of altered mental status. At the time, he was found to have a pCO2 of 99. He was put on a BiPAP and was in the unit for about 24 hours. Subsequently, his mentation improved, pCO2 got back to 66. Unfortunately, for yesterday and today, it has been progressively going up. We have consulted pulmonary medicine to evaluate him. His mentation, however, remains lucid. We will wait for pulmonary recommendations and hopefully get Mr. Velez [facility]. cc: Diogo Bustillos MD
[2019-05-29] MEDS: REQUIP PO SCH (21:21)
[2019-05-29] MEDS: FLOMAX PO SCH (21:21)
[2019-05-29] MEDS: MELATONIN PO SCH (21:21)
--- NOTE | 2019-05-29 22:50 | PULMONOLOGY CONSULTATION ---
DATE: 05/29/2019 REQUESTING CLINICIAN: Dr. Bustillos. REASON FOR CONSULTATION: Hypercarbic respiratory failure. HISTORY OF PRESENT ILLNESS: Mr. Velez is a 69-year-old white male with a [id number] history for tobacco, morbid obesity and a BMI of 50, obstructive sleep apnea with nocturnal CPAP use, who has been living at a snf for approximately 5 years. The patient reports on Monday he started feeling poorly and had several shaking chills. He was brought to the emergency room on Monday with acute hypoxemia and hypersomnolence. He had a temperature as high as 100 degrees. His white blood count in the emergency room was 11.25. Initial chest x-ray revealed mild infiltrate in the lung bases. Chest x-ray performed on the following day revealed increasing infiltrates. He now is awake, alert and conversant. He reports he is returned to his baseline. He is without complaints at this time. PAST MEDICAL HISTORY: 1. Morbid obesity with a BMI greater than 50. 2. Pickwickian syndrome. 3. Possible COPD but he reports he has only a 10 pack-year history for tobacco. 4. Paroxysmal atrial fibrillation. 5. Gastroesophageal reflux disease. 6. History of deep vein thrombosis and pulmonary embolism. 7. Hypertension. 8. History of right knee arthroplasty. 9. Status post cholecystectomy. SOCIAL HISTORY: Ten pack-year history for tobacco between the ages of 24 and 34. He denies significant alcohol use. He has been living at the snf for the last 5 years because he could no longer take care of himself. FAMILY HISTORY: Positive for lung cancer, hypertension, and heart disease. REVIEW OF SYSTEMS: Notable for cough without significant sputum, shortness of breath which is improving. Otherwise review of systems is negative. PHYSICAL EXAMINATION: Reveals an obese white male resting comfortably on nasal cannula in no distress. Blood pressure 115/65, heart rate 86, respiratory rate 17, oxygen saturation 98%.HEENT: Pupils are equal and reactive. Oropharynx appears clear. Neck: Supple. Chest: Reveals crackles in both lung bases. Cardiac: S1-S2. Abdomen: Obese and soft. Extremities: Reveal trace to 1+ peripheral edema. LABORATORIES: Influenza screen is negative (he does not remember them collecting this despite the pain associated with a nasal swab). Blood cultures are negative. Urinalysis on presentation was negative. Arterial blood gas this morning, pH 7.35, pCO2 of 70, PO2 of 110 on BiPAP. IMPRESSION: A 69-year-old male who presented with 1. Institution-acquired pneumonia. 2. Leukocytosis with low-grade fever and chills. 3. Acute on chronic hypercapnic respiratory failure. 4. Acute on chronic hypoxemic respiratory failure. 5. Obstructive sleep apnea. DISCUSSION: A 69-year-old with problems outlined above. With his description, this most likely represented a institution-acquired pneumonia. His pulmonary status is marginal and he likely had acute decompensation. Clinically, he appears to be improving. RECOMMENDATIONS: 1. Continue current antibiotic regimen. 2. Continue BiPAP or his CPAP at bedtime. 3. Followup chest x-ray tomorrow. cc: Jose Morales MD
[2019-05-30] MEDS: HUMALOG SUBQ SCH ×5 (00:29→20:51)
[2019-05-30] MEDS: DULCOLAX PR SCH (00:30)
[2019-05-30] MEDS: DESYREL PO SCH ×2 (00:30→20:50)
[2019-05-30] MEDS: MIRALAX PO SCH ×2 (00:31→09:37)
[2019-05-30] MEDS: SOLU-MEDROL IV SCH ×3 (00:33→20:49)
[2019-05-30] MEDS: MAXIPIME 1 GM in NS 50 ML IV SCH ×2 (00:33→14:19)
[2019-05-30] MEDS: DUONEB (A & A) INH SCH ×6 (03:40→22:53)
[2019-05-30] MEDS: VANCOMYCIN 2 GM in NS 500 ML IV SCH ×2 (04:00→20:47)
[2019-05-30 05:40] LABS: ALLEN TEST YES; BE 11.7 mmoll (-3.0-3.0); BLOOD TYPE ARTERIAL; O2(CT) 17.2 mL/dL (15.0-23.0); PO2(98.6) 77 mmHg (60-100); SAMPLE BLOOD; SAO2 99.7 % (95.0-100.0); THB 12.7 g/dL (11.5-17.4); pH(98.6) 7.35 (7.35-7.45)
[2019-05-30 05:42] LABS: MODALITY CANNULA; PCO2(98.6) 73 mmHg (35-45)
[2019-05-30] MEDS: SYNTHROID PO SCH (06:11)
--- NOTE | 2019-05-30 07:43 | Diag Imaging Result Doc PS360 ---
EXAM: CHEST-2 VIEWS HISTORY: abnormal exam TECHNIQUE: Two views COMPARISON: 05/27/2019 FINDINGS: Poor inspiratory effort. The heart remains enlarged. Interval decrease in the pulmonary edema. The basilar atelectasis and infiltrates are less prominent. No pleural effusions. IMPRESSION: Interval improvement Electronically signed by Chai Glover 05/30/2019 7:40 AM
[2019-05-30] MEDS: SPIRIVA INH SCH (07:54)
[2019-05-30] MEDS: PEPCID PO SCH ×2 (09:38→20:50)
[2019-05-30] MEDS: FOLIC ACID PO SCH ×2 (09:38→20:50)
[2019-05-30] MEDS: ICAR-C PO SCH ×2 (09:38→20:50)
[2019-05-30] MEDS: LANTUS INSULIN SUBQ SCH (09:39)
[2019-05-30] MEDS: CULTURELLE PO SCH ×2 (09:39→20:50)
[2019-05-30] MEDS: BIOTIN PO SCH (09:39)
[2019-05-30] MEDS: XARELTO PO SCH (09:42)
--- NOTE | 2019-05-30 14:37 | PROGRESS NOTE ---
DATE: 05/30/2019 SUBJECTIVE: The patient seems to be feeling better. He is still having some shortness of breath, but compared with admission, he is breathing more comfortable comfortably. At this moment, he is on a nasal cannula, and he has been on oxygen at home as well. He is coming from [facility]. OBJECTIVE: Vital Signs: Temperature 99 degrees, pulse 97, respiratory rate 14, blood pressure 120/62, oxygen saturation 92 on 3 L of nasal cannula. HEENT: Head normocephalic. No trauma. PERRLA. Neck: Supple. I cannot see JVD because of his neck size. Central trachea. Chest: Decreased breath sounds globally. I do not hear any wheezing today, probably some rhonchi at the bases, but the sounds are really distant. Extremities: No edema, no clubbing, no cyanosis. He does have a right knee scar, which is chronic. No signs of infection. Neurological: The patient is awake, alert. He is oriented x3. He is following commands. He is not able to ambulate, probably because of his BMI, but he was able to transfer from the bed to the bedside commode or wheelchair. IMAGING: Chest x-ray looks better compared with the previous one. LABORATORY DATA: PH 7.3, pCO2 of 73, PO2 of 77, bicarbonate 34. Glucose 191. ASSESSMENT AND PLAN: 1. Altered mental status on presentation, likely multifactorial from CO2 narcosis and/or pneumonia. He seems to be answering all of my questions. He seems to be better. Will continue with the same management. 2. Acute on chronic hypoxemic and hypercarbic respiratory failure. He is on home oxygen, around 2 liters. We have been using the bilevel positive airway pressure machine on and off. 3. Pneumonia, likely bilaterally at the bases. He is coming from a [facility], so likely this is institutional related. Continue with antibiotics. 4. Obstructive sleep apnea. Continue with the continuous positive airway pressure/bilevel positive airway pressure here. 5. Chronic obstructive pulmonary disease with ezkygxok-vz-cryxaz exacerbation. Continue with the same management. He is on breathing treatment, steroids, which I will decrease, and antibiotics. 6. Pulmonary edema, likely from congestive heart failure with preserved ejection fraction. This seems to be better. 7. Mild intravascular depletion. It seems to be better today. 8. Type 2 diabetes, newly diagnosed, with a hemoglobin A1c of 6.7. His glucose level has been slightly elevated, likely because of the steroids. Will continue to monitor. 9. This patient is a resident of [facility], and he is basically bedbound. He uses a wheelchair for mobility. cc: Win Tellez MD
[2019-05-30] MEDS: FLOMAX PO SCH (20:50)
[2019-05-30] MEDS: MELATONIN PO SCH (20:50)
[2019-05-30] MEDS: REQUIP PO SCH (20:50)
--- NOTE | 2019-05-30 21:56 | PULMONOLOGY PROGRESS NOTE ---
DATE: 05/30/2019 SUBJECTIVE: The patient is awake and alert. He reports he did strangle some at supper and is coughing this evening, but this is improving. OBJECTIVE: The patient has been afebrile for the last 24 hours. Blood pressure 120/62, heart rate 97, respiratory rate 14, oxygen saturation 94% on 3 L per nasal cannula. HEENT: Pupils are equal and reactive. Oropharynx appears clear. Neck is supple. Chest reveals occasional rhonchi bilaterally, with decreased breath sounds in the bases. Cardiac exam: S1, S2. Abdomen is obese and soft. Extremities reveal trace edema. LABORATORY DATA: No new microbiology data. DIAGNOSTIC DATA: Chest x-ray reveals decreasing edema and basilar infiltrates. IMPRESSION: A 69-year-old with: 1. Institution-acquired pneumonia. 2. Vzdxz-rb-vczbgzg hypercapnic respiratory failure. 3. Sculd-lb-vclcgdo hypoxemic respiratory failure. 4. Obstructive sleep apnea. DISCUSSION: A 69-year-old with problems outlined above. He continues to clinically improve. He did have an episode of choking this evening at supper, but has an excellent cough reflex and appears to be recovering. If he continues to have episodes of choking, then swallowing study would be appropriate, but currently he appears to be returning to his baseline. PLAN: 1. Continue current antibiotic regimen. 2. Continue nocturnal positive airway pressure. 3. Would anticipate [facility] to the [facility] next [facility]. cc: Jose Morales MD
[2019-05-31] MEDS: MAXIPIME 1 GM in NS 50 ML IV SCH ×2 (02:05→12:28)
[2019-05-31] MEDS: DUONEB (A & A) INH SCH ×5 (02:50→19:57)
[2019-05-31] MEDS: MIRALAX PO SCH ×3 (03:21→21:10)
[2019-05-31] MEDS: HUMALOG SUBQ SCH ×4 (06:04→21:11)
[2019-05-31] MEDS: SYNTHROID PO SCH (06:05)
[2019-05-31] MEDS: SPIRIVA INH SCH (07:53)
[2019-05-31 08:25] LABS: BASO# 0.01 X1000 (0.0-0.2); BASO% 0.1 % (0.0-0.8); EOS# 0.02 X1000 (0.0-0.7); EOS% 0.2 % (0.0-10.0); IMM GRAN# 0.09 X1000 (0.0-0.04); LYMPH# 2.08 X1000 (1.2-3.4); MCH 27.7 PG (27-31); MCHC 29.5 g/dL (33-37); MCV 93.6 FL (81-99); MONO# 0.55 X1000 (0.11-0.59); MONO% 6.3 % (1.7-9.3); NEUT# 5.92 X1000 (1.4-6.5); NEUT% 68.4 % (42.2-75.2); PLT 191 X1000 (130-400); RDW 13.1 % (11.5-14.5); WBC 8.67 X1000 (4.8-10.8)
[2019-05-31] MEDS: ICAR-C PO SCH ×2 (09:01→21:10)
[2019-05-31] MEDS: FOLIC ACID PO SCH ×2 (09:01→21:10)
[2019-05-31] MEDS: PEPCID PO SCH ×2 (09:01→21:10)
[2019-05-31] MEDS: CULTURELLE PO SCH ×2 (09:01→21:10)
[2019-05-31] MEDS: XARELTO PO SCH (09:01)
[2019-05-31] MEDS: SOLU-MEDROL IV SCH ×2 (09:02→23:25)
[2019-05-31] MEDS: LANTUS INSULIN SUBQ SCH (09:02)
[2019-05-31 09:17] LABS: AGAP 8; ALB/GLOB RATIO 1.1; ALBUMIN 3.2 g/dL (3.5-5.0); ALKALINE PHOSPHATASE 37 U/L (32-122); BUN 29 mg/dL (8-22); CHLORIDE 99 mmol/L (98-107); COSMO 295; CREATININE 0.7 mg/dL (0.7-1.2); ESTIMATED GFR > 60; GLUCOSE 148 mg/dL (70-104); GOT 14 U/L (10-34); GPT 24 U/L (10-44); MAGNESIUM 2.5 mg/dL (1.5-2.7); PHOSPHORUS 2.9 mg/dL (2.7-4.5); POTASSIUM 4.1 mmol/L (3.5-5.1); SODIUM 144 mmol/L (136-145); TCO2 37 mmol/L (25-35); TOTAL BILIRUBIN 0.48 mg/dL (0.20-1.00)
[2019-05-31] MEDS: BIOTIN PO SCH (10:50)
[2019-05-31] MEDS: VANCOMYCIN 2 GM in NS 500 ML IV SCH (15:40)
--- NOTE | 2019-05-31 16:04 | PROGRESS NOTE ---
DATE: 05/31/2019 SUBJECTIVE: The patient seems to be feeling a little bit better compared with yesterday. He is still complaining of shortness of breath, but compared with admission, he is breathing more comfortably. At this moment, he is on a nasal cannula. He is using oxygen at home as well. He is coming from [facility]. OBJECTIVE: Vital Signs: Temperature 98.8 degrees, pulse 53, respiratory rate 20, blood pressure 103/57, oxygen saturation 91% on 2 L of nasal cannula. HEENT: Head normocephalic, no trauma. PERRLA. Neck: Supple. I cannot see JVD because of his neck size. Central trachea. Chest: Decreased breath sounds globally. Some rhonchi at the bases, but the sounds are really distant. Extremities: No clubbing. No cyanosis. He has a right knee scar which is chronic. No signs of infection. Neurological: Patient is awake and alert. He is oriented x3. He is following commands. He is not able to ambulate, but he was able to transfer from the bed to the bedside commode or wheelchair prior to admission. LABORATORY: WBC 8.6, hemoglobin 13, hematocrit 44, platelet 191,000. Sodium 144, potassium 4.1, chloride 99, bicarbonate 37, BUN 29, creatinine 0.7, glucose 148, calcium 9, albumin 3.2. ASSESSMENT AND PLAN: 1. Altered mental status on presentation, likely multifactorial for carbon dioxide narcosis and/or pneumonia. He seems to be better. 2. Acute on chronic hypoxemic and hypercarbic respiratory failure. He is on home O2 around 2 L. He has been using the BiPAP machine mostly during the night on and off. 3. Pneumonia bilaterally at the bases. [facility], so this is likely healthcare-associated pneumonia. Continue antibiotics. 4. Obstructive sleep apnea. Continue with the BiPAP/CPAP machine. 5. Chronic obstructive pulmonary disease with qrijkhzt-kw-vgimqy exacerbation. Continue with same management. He is breathing better. I have decreased the amount of steroids. Continue with antibiotics. 6. Pulmonary edema, likely from congestive heart failure with preserved ejection fraction. I will monitor for now, but probably tomorrow will add Lasix to his treatment. He is on 20 mg at home. 7. Mild intravascular depletion. Seems to be better. 8. Type 2 diabetes. New diagnosis with a hemoglobin A1c of 6.7. Glucose level has been slightly elevated probably due to steroids. We will continue to monitor. 9. This patient is a resident of [facility]. He is basically bed bound. He uses a wheelchair for mobility. We will continue with the same management here. Likely, this [facility]. This patient has been followed closely by Pulmonary Department as well. cc: Win Tellez MD
--- NOTE | 2019-05-31 17:42 | PROVIDER PROGRESS NOTE ---
Progress Note Dr. Landa Progress Note/Pulmonary and or critical care We appreciated progress of care, Complications, change in diagnosis, and instructions to patient. Subjective: We note the level of consciousness, bed (chair) position, family presence (if any), level of lethargy, feeling of symptoms, and changes from baseline condition/symptom. Patient is lying in bed with no acute distress noted. He is on NC 3 L and tolerates well. He still has cough with production at times. He wants to know when he can go home. Objective: Vital Signs: We reviewed EMR current values for Pulse rate, Blood pressure, Pulse rate, respiratory rate and Pulse oximetry. Also noted other values and trends if present (e.g. I/O, CVP). T 98.3, NH 75, RR 18, BP 129/74 and SaO2 99% on room air. Physical Examination: General: Morbidly obese. Lying in bed with no acute distress noted. HEENT: Normocephalic. Trachea midline. Mucosa pink and moist. Chest: Even and unlabored. Symmetrical excursion. Auscultation reveals diminished breathing sounds bibasilarly and occasional rhonchi bilaterally. CVS: S1 and S2 appreciated. Abdomen: Soft. Non-tender. Obese. Normoactive bowel sounds in all 4 quadrants. Extremities: BLE trace edema. No cyanosis. No clubbing. Dorsalis pedis 2+ bilaterally. Neuro: A/O x4. Speech fluent. Following commands. Labs and Radiology: Reviewed available labs and radiology values available at time of EMR review. Laboratory Results 05/30/19 05/31/19 05/31/19 20:29 05:57 07:49 WBC RBC Hgb Hct MCV MCH MCHC RDW Std Deviation Plt Count MPV Immature Gran % (Auto) Neut % (Auto) Lymph % (Auto) Delta % (Auto) Eos % (Auto) Baso % (Auto) Immature Gran # (Auto) Neut # (Auto) Lymph # (Auto) Delta # (Auto) Eos # (Auto) Baso # (Auto) Sodium 144 Potassium 4.1 Chloride 99 Carbon Dioxide 37 H Anion Gap 8 BUN 29 H Creatinine 0.7 Estimated GFR/1.73 m2 > 60 BUN/Creatinine Ratio 41 Glucose 148 H POC Glucose 230 H 202 H Calculated Osmolality 295 Calcium 9.0 Phosphorus 2.9 Magnesium 2.5 Total Bilirubin 0.48 AST 14 ALT 24 Alkaline Phosphatase 37 Total Protein 6.0 L Albumin 3.2 L Globulin 2.8 Albumin/Globulin Ratio 1.1 05/31/19 05/31/19 05/31/19 07:49 11:06 16:59 WBC 8.67 RBC 4.70 Hgb 13.0 L Hct 44.0 MCV 93.6 MCH 27.7 MCHC 29.5 L RDW Std Deviation 13.1 Plt Count 191 MPV 10.0 Immature Gran % (Auto) 1.0 H Neut % (Auto) 68.4 Lymph % (Auto) 24.0 Delta % (Auto) 6.3 Eos % (Auto) 0.2 Baso % (Auto) 0.1 Immature Gran # (Auto) 0.09 H Neut # (Auto) 5.92 Lymph # (Auto) 2.08 Delta # (Auto) 0.55 Eos # (Auto) 0.02 Baso # (Auto) 0.01 Sodium Potassium Chloride Carbon Dioxide Anion Gap BUN Creatinine Estimated GFR/1.73 m2 BUN/Creatinine Ratio Glucose POC Glucose 132 H 169 H Calculated Osmolality Calcium Phosphorus Magnesium Total Bilirubin AST ALT Alkaline Phosphatase Total Protein Albumin Globulin Albumin/Globulin Ratio Assessment: Institution-acquired pneumonia with pulmonary edema and basilar atelectasis. Acute on chronic hypoxemic hypercapnic respiratory failure. DOMINIK. Morbid obesity. Plan: Continue current treatment and supportive care per admitting and other teams on the case. Antibiotic (Cefepime and vancomycin). IV Solu-Medrol. Tapering down. Bronchodilators. BiPAP at bedtime. Input was appreciated from Admitting MD and other teams on the case.
[2019-05-31] MEDS: FLOMAX PO SCH (21:09)
[2019-05-31] MEDS: DESYREL PO SCH (21:10)
[2019-05-31] MEDS: NORCO-7.5 PO PRN (21:10)
[2019-05-31] MEDS: DULCOLAX PR SCH (21:10)
[2019-05-31] MEDS: REQUIP PO SCH (21:10)
[2019-05-31] MEDS: MELATONIN PO SCH (21:10)
[2019-06-01] MEDS: DUONEB (A & A) INH SCH ×7 (00:09→22:56)
[2019-06-01] MEDS: MAXIPIME 1 GM in NS 50 ML IV SCH ×2 (02:35→13:58)
[2019-06-01] MEDS: NORCO-7.5 PO PRN ×2 (06:26→21:49)
[2019-06-01 06:28] LABS: ALLEN TEST YES; BE 14.2 mmoll (-3.0-3.0); BLOOD TYPE ARTERIAL; HCO3-(ACT) 35.9 mmoll (20.0-26.0); METHB 0.3 % (0.0-1.5); O2(CT) 19.1 mL/dL (15.0-23.0); O2HB 92.9 % (95.0-99.0); PO2(98.6) 64 mmHg (60-100); SAMPLE BLOOD; SAO2 94.7 % (95.0-100.0); THB 14.6 g/dL (11.5-17.4); pH(98.6) 7.38 (7.35-7.45)
[2019-06-01] MEDS: HUMALOG SUBQ SCH ×4 (06:28→22:30)
[2019-06-01] MEDS: SYNTHROID PO SCH (06:28)
[2019-06-01 06:43] LABS: MODALITY CANNULA; PCO2(98.6) 73 mmHg (35-45)
[2019-06-01] MEDS: SPIRIVA INH SCH (08:29)
[2019-06-01 09:20] LABS: AGAP 8; BUN 24 mg/dL (8-22); CALCIUM 8.8 mg/dL (8.8-10.2); CHLORIDE 93 mmol/L (98-107); COSMO 285; CREATININE 0.7 mg/dL (0.7-1.2); ESTIMATED GFR > 60; GLUCOSE 226 mg/dL (70-104); POTASSIUM 4.6 mmol/L (3.5-5.1); SODIUM 137 mmol/L (136-145); TCO2 36 mmol/L (25-35)
[2019-06-01] MEDS: SOLU-MEDROL IV SCH ×2 (09:54→21:49)
[2019-06-01] MEDS: MIRALAX PO SCH ×2 (09:55→21:48)
[2019-06-01] MEDS: PEPCID PO SCH ×2 (09:55→21:49)
[2019-06-01] MEDS: FOLIC ACID PO SCH ×2 (09:55→21:49)
[2019-06-01] MEDS: BIOTIN PO SCH (09:55)
[2019-06-01] MEDS: XARELTO PO SCH (09:55)
[2019-06-01] MEDS: CULTURELLE PO SCH ×2 (09:55→21:48)
[2019-06-01] MEDS: LANTUS INSULIN SUBQ SCH (09:59)
[2019-06-01] MEDS: ICAR-C PO SCH ×2 (10:00→21:49)
[2019-06-01] MEDS: VANCOMYCIN 1.5 GM in NS 250 ML IV SCH ×2 (10:54→23:00)
--- NOTE | 2019-06-01 13:07 | PROGRESS NOTE ---
DATE: 06/01/2019 SUBJECTIVE: This morning Mr. Velez referred to be doing well. He said he has not had a bowel movement for the past 2 to 3 days. However, it is documented that he had 2 this morning. OBJECTIVE: Vital signs: Blood pressure is 135/76, pulse of 84, respirations 22, temperature is 98.2 degrees. General: Mr. Velez is a 69-year-old gentleman, he is in bed. He is morbidly obese, BMI is 50.2. In no distress. HEENT: Mucosa is pink and moist. Chest: There is good air entry bilaterally. I did not hear any wheezing. No rhonchi. Cardiovascular: Regular rate and rhythm GI: The abdomen is soft, it is distended, but nontender. Bowel sounds present. No hepatosplenomegaly. Extremities: Some old scar on the right knee from previous knee surgery, but no edema. 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 Follows basic commands. DIAGNOSTIC DATA: The patient's pCO2 this morning is 73. The rest of the laboratory data is unremarkable. MEDICATIONS: Medications have all been reviewed today. IMAGING STUDIES: None for today. ASSESSMENT AND PLAN: 1. Altered mental status on presentation due to global encephalopathy from CO2 narcosis, resolved. 2. Acute on chronic hypercarbic respiratory failure. The patient continues to use BiPAP. 3. Acute on chronic hypoxemic respiratory failure, improved with supplemental oxygen. 4. COPD with moderate to severe exacerbation. The patient is on steroids, antibiotics, and bronchodilation therapy. 5. Obstructive sleep apnea. The patient uses CPAP at home. 6. Pulmonary edema, presumably from congestive heart failure with preserved ejection fraction, resolved. 7. Newly diagnosed diabetes mellitus. The patient is on insulin regimen. I think he will be safe to be transitioned to oral hypoglycemic agent at discharge. 8. A resident of [facility]. cc: Diogo Bustillos MD
--- NOTE | 2019-06-01 16:55 | PROVIDER PROGRESS NOTE ---
Progress Note Dr. Landa Progress Note/Pulmonary and or critical care We appreciated progress of care, Complications, change in diagnosis, and instructions to patient. Subjective: We note the level of consciousness, bed (chair) position, family presence (if any), level of lethargy, feeling of symptoms, and changes from baseline condition/symptom. Patient is lying in bed with no acute distress noted. He is on NC 3 L and tolerates well. He is on breathing treatment now. He still has cough with production at times. He states he is ready to be more active. Objective: Vital Signs: We reviewed EMR current values for Pulse rate, Blood pressure, Pulse rate, respiratory rate and Pulse oximetry. Also noted other values and trends if present (e.g. I/O, CVP). T 98.3, MI 91, RR 20, BP 143/70 and SaO2 89% on NC 3L. Physical Examination: General: Morbidly obese. Lying in bed with no acute distress noted. HEENT: Normocephalic. Trachea midline. Mucosa pink and moist. Chest: Even and unlabored. Symmetrical excursion. Auscultation reveals dim inished breathing sounds bibasilarly and some expiratory wheezing bilaterally. CVS: S1 and S2 appreciated. Abdomen: Soft. Non-tender. Obese. Normoactive bowel sounds in all 4 quadrants. Extremities: BLE trace edema. No cyanosis. No clubbing. Dorsalis pedis 2+ bilaterally. Neuro: A/O x4. Speech fluent. Following commands. Labs and Radiology: Reviewed available labs and radiology values available at time of EMR review. Laboratory Results 05/31/19 06/01/19 06/01/19 20:04 05:27 06:18 Specimen Type ARTERIAL Sample Site R RADIAL pH 7.38 pCO2 73 H* pO2 64 HCO3 35.9 H Base Excess 14.2 H Oxyhemoglobin 92.9 L ABG O2 Sat (Calculated) 19.1 ABG O2 Saturation 94.7 L ABG Carboxyhemoglobin 1.60 ABG Methemoglobin 0.3 Daniel Test YES A-a O2 Difference 44.0 Total Hemoglobin 14.6 Lactate 1.70 Liter Flow 2.0 Blood Gas Modality CANNULA FiO2 % 28.0 Sodium Potassium Chloride Carbon Dioxide Anion Gap BUN Creatinine Estimated GFR/1.73 m2 BUN/Creatinine Ratio Glucose POC Glucose 175 H 228 H Calculated Osmolality Calcium Random Vancomycin 06/01/19 06/01/19 06/01/19 08:34 08:34 10:41 Specimen Type Sample Site pH pCO2 pO2 HCO3 Base Excess Oxyhemoglobin ABG O2 Sat (Calculated) ABG O2 Saturation ABG Carboxyhemoglobin ABG Methemoglobin Daniel Test A-a O2 Difference Total Hemoglobin Lactate Liter Flow Blood Gas Modality FiO2 % Sodium 137 Potassium 4.6 Chloride 93 L Carbon Dioxide 36 H Anion Gap 8 BUN 24 H Creatinine 0.7 Estimated GFR/1.73 m2 > 60 BUN/Creatinine Ratio 34 Glucose 226 H D POC Glucose 217 H Calculated Osmolality 285 Calcium 8.8 Random Vancomycin 12.30 06/01/19 16:52 Specimen Type Sample Site pH pCO2 pO2 HCO3 Base Excess Oxyhemoglobin ABG O2 Sat (Calculated) ABG O2 Saturation ABG Carboxyhemoglobin ABG Methemoglobin Daniel Test A-a O2 Difference Total Hemoglobin Lactate Liter Flow Blood Gas Modality FiO2 % Sodium Potassium Chloride Carbon Dioxide Anion Gap BUN Creatinine Estimated GFR/1.73 m2 BUN/Creatinine Ratio Glucose POC Glucose 261 H Calculated Osmolality Calcium Random Vancomycin Assessment: Institution-acquired pneumonia with pulmonary edema and basilar atelectasis. Acute on chronic hypoxemic hypercapnic respiratory failure. DOMINIK. Morbid obesity. Plan: Continue current treatment and supportive care per admitting and other teams on the case. Antibiotic (Cefepime and vancomycin). IV Solu-Medrol. Bronchodilators. BiPAP at bedtime. Input was appreciated from Admitting MD and other teams on the case.
[2019-06-01] MEDS: REQUIP PO SCH (21:48)
[2019-06-01] MEDS: FLOMAX PO SCH (21:48)
[2019-06-01] MEDS: MELATONIN PO SCH (21:49)
[2019-06-01] MEDS: DESYREL PO SCH (21:49)
[2019-06-02] MEDS: MAXIPIME 1 GM in NS 50 ML IV SCH ×2 (01:30→13:12)
[2019-06-02] MEDS: DUONEB (A & A) INH SCH ×6 (03:44→23:21)
[2019-06-02] MEDS: HUMALOG SUBQ SCH ×4 (06:08→20:26)
[2019-06-02] MEDS: SYNTHROID PO SCH (06:09)
[2019-06-02] MEDS: NORCO-7.5 PO PRN (06:09)
[2019-06-02] MEDS: SPIRIVA INH SCH (08:00)
[2019-06-02] MEDS: LANTUS INSULIN SUBQ SCH (09:44)
[2019-06-02] MEDS: VANCOMYCIN 1.5 GM in NS 250 ML IV SCH ×2 (09:44→22:52)
[2019-06-02] MEDS: MIRALAX PO SCH (09:45)
[2019-06-02] MEDS: SOLU-MEDROL IV SCH ×2 (09:46→20:08)
[2019-06-02] MEDS: XARELTO PO SCH (09:46)
[2019-06-02] MEDS: PEPCID PO SCH ×2 (09:47→20:07)
[2019-06-02] MEDS: BIOTIN PO SCH (09:47)
[2019-06-02] MEDS: CULTURELLE PO SCH ×2 (09:47→20:07)
[2019-06-02] MEDS: ICAR-C PO SCH ×2 (09:47→20:07)
[2019-06-02] MEDS: FOLIC ACID PO SCH ×2 (09:47→20:08)
--- NOTE | 2019-06-02 10:21 | PROGRESS NOTE ---
DATE: 06/02/2019 SUBJECTIVE: This morning, Mr. Velez refers to be doing fairly okay. No new complaints. OBJECTIVE: Vital Signs: Blood pressure is 111/59, pulse of 60, respirations 19, temperature is 98.8 degrees, the patient is saturating 93% on 3 L. General: Mr. Velez is a 69-year-old, morbidly obese, gentleman. BMI is 50.2. He is in bed. No distress. HEENT: Mucosa is pink and moist. He is on supplemental nasal cannula. Chest: Good air entry bilaterally. There was no wheezing, no rhonchi, no crackles. Cardiovascular: Regular rate and rhythm. No murmurs, no rubs, no gallops. GI: Abdomen is soft. It is distended, but nontender. Bowel sounds present. No hepatosplenomegaly. Extremities: No pedal edema. There is an old scar on the right knee from previous knee surgery. 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 LABORATORY DATA: None for today. The patient's glucose is 186 this morning. ASSESSMENT: 1. Altered mental status on presentation secondary to global encephalopathy from CO2 narcosis, resolved. 2. Acute on chronic hypercarbic respiratory failure. The patient will use bilevel positive airway pressure, especially at night. 3. Acute on chronic hypoxemic respiratory failure, improved. The patient is currently on 3 liters of supplemental oxygen. 4. Chronic obstructive pulmonary disease with [id number] exacerbation, resolved. The patient is on steroids, antibiotics, and bronchodilation therapy. Will plan to continue antibiotics for a total of 7 days. 5. Obstructive sleep apnea. The patient uses continuous positive airway pressure at home. 6. Pulmonary edema, presumably from congestive heart failure with preserved ejection fraction, improved. 7. Newly-diagnosed diabetes mellitus. The patient's A1c is 6.7. He is currently on insulin regimen during the hospital course, but he can be transitioned to oral hypoglycemic agents at discharge. 8. Bedbound and resident of [facility]. The patient will be transitioning back hopefully tomorrow to the custodial. In general, I think Mr. Velez is fairly stable. His mentation has improved. He is now alert, oriented. He is conversational. I think he is back to his baseline, and he can be discharged safely back to the custodial tomorrow. cc: Diogo Bustillos MD
--- NOTE | 2019-06-02 16:13 | PROVIDER PROGRESS NOTE ---
Progress Note Dr. Landa Progress Note/Pulmonary and or critical care We appreciated progress of care, Complications, change in diagnosis, and instructions to patient. Subjective: We note the level of consciousness, bed (chair) position, family presence (if any), level of lethargy, feeling of symptoms, and changes from baseline condition/symptom. Patient is lying in bed with no acute distress noted. He is on NC 3 L which actually is his baseline oxygen requirement. He states he is feeling better and he is ready to go back to the alf. He has occasional productive cough, but no pain. Objective: Vital Signs: We reviewed EMR current values for Pulse rate, Blood pressure, Pulse rate, respiratory rate and Pulse oximetry. Also noted other values and trends if present (e.g. I/O, CVP). T 98.6, MI 77, RR 18, BP 113/51 and SaO2 95% on NC 3L. Physical Examination: General: Morbidly obese. Lying in bed with no acute distress noted. HEENT: Normocephalic. Trachea midline. Mucosa pink and moist. Chest: Even and unlabored. Symmetrical excursion. Auscultation reveals diminished breathing sounds bibasilarly and mild expiratory wheezing bibasilarly. CVS: S1 and S2 appreciated. Abdomen: Soft. Non-tender. Obese. Normoactive bowel sounds in all 4 quadrants. Extremities: BLE trace edema. No cyanosis. No clubbing. Dorsalis pedis 2+ bilaterally. Neuro: A/O x4. Speech fluent. Following commands. Labs and Radiology: Reviewed available labs and radiology values available at time of EMR review. Laboratory Results 06/01/19 06/02/19 06/02/19 20:11 05:42 10:59 POC Glucose 229 H 186 H 237 H 06/02/19 15:59 POC Glucose 185 H Assessment: Institution-acquired pneumonia with pulmonary edema and basilar atelectasis. Acute on chronic hypoxemic hypercapnic respiratory failure. DOMINIK. Morbid obesity. Plan: Continue current treatment and supportive care per admitting and other teams on the case. Antibiotic (Cefepime and vancomycin). IV Solu-Medrol. Bronchodilators. BiPAP at bedtime. Discharge planning per Admitting MD. Input was appreciated from Admitting MD and other teams on the case.
[2019-06-02] MEDS: DESYREL PO SCH (20:07)
[2019-06-02] MEDS: REQUIP PO SCH (20:07)
[2019-06-02] MEDS: FLOMAX PO SCH (20:07)
[2019-06-02] MEDS: MELATONIN PO SCH (20:07)
[2019-06-02] MEDS: DULCOLAX PR SCH (20:09)
[2019-06-03] MEDS: MAXIPIME 1 GM in NS 50 ML IV SCH ×2 (01:10→14:24)
[2019-06-03] MEDS: MIRALAX PO SCH ×2 (03:09→09:36)
[2019-06-03] MEDS: DUONEB (A & A) INH SCH ×4 (04:54→15:44)
[2019-06-03 05:16] LABS: ALLEN TEST YES; BE 16.7 mmoll (-3.0-3.0); BLOOD TYPE ARTERIAL; HCO3-(ACT) 37.8 mmoll (20.0-26.0); METHB 0.8 % (0.0-1.5); O2(CT) 19.1 mL/dL (15.0-23.0); O2HB 91.8 % (95.0-99.0); PO2(98.6) 64 mmHg (60-100); SAMPLE BLOOD; SAO2 94.3 % (95.0-100.0); THB 14.8 g/dL (11.5-17.4); pH(98.6) 7.41 (7.35-7.45)
[2019-06-03 05:17] LABS: MODALITY BI PAP
[2019-06-03 05:41] LABS: PCO2(98.6) 72 mmHg (35-45)
[2019-06-03] MEDS: SYNTHROID PO SCH (06:03)
[2019-06-03] MEDS: HUMALOG SUBQ SCH ×3 (06:03→17:09)
[2019-06-03] MEDS: SPIRIVA INH SCH (07:49)
[2019-06-03] MEDS ORDERED: NS 50 ML ONE (08:01)
[2019-06-03] MEDS: SOLU-MEDROL IV SCH (09:36)
[2019-06-03] MEDS: ICAR-C PO SCH (09:36)
[2019-06-03] MEDS: FOLIC ACID PO SCH (09:36)
[2019-06-03] MEDS: PEPCID PO SCH (09:36)
[2019-06-03] MEDS: XARELTO PO SCH (09:36)
[2019-06-03] MEDS: CULTURELLE PO SCH (09:36)
[2019-06-03 09:52] LABS: AGAP 8; ALBUMIN 3.2 g/dL (3.5-5.0); BUN 26 mg/dL (8-22); CHLORIDE 92 mmol/L (98-107); COSMO 287; CREATININE 0.7 mg/dL (0.7-1.2); ESTIMATED GFR > 60; GLUCOSE 188 mg/dL (70-104); PHOSPHORUS 3.5 mg/dL (2.7-4.5); POTASSIUM 4.9 mmol/L (3.5-5.1); SODIUM 139 mmol/L (136-145); TCO2 39 mmol/L (25-35)
[2019-06-03] MEDS: BIOTIN PO SCH (09:54)
[2019-06-03] MEDS: LANTUS INSULIN SUBQ SCH (09:55)
--- NOTE | 2019-06-03 10:00 | Diag Imaging Result Doc PS360 ---
EXAM: CHEST-PORTABLE HISTORY: SOB TECHNIQUE: Single view COMPARISON: 05/30/2019 FINDINGS: The heart remains enlarged. There is pulmonary edema. This is slightly more pronounced on the current study. No pleural effusions identified. IMPRESSION: Worsening pulmonary edema Electronically signed by Chai Glover 06/03/2019 9:58 AM
[2019-06-03] MEDS: VANCOMYCIN 1.5 GM in NS 250 ML IV SCH (10:09)
[2019-06-03] MEDS ORDERED: LASIX IV ONE (10:56)
--- NOTE | 2019-06-03 12:19 | DISCHARGE SUMMARY ---
ADMISSION DATE: 05/26/2019 DISCHARGE DATE: 06/03/2019 DISCHARGE DIAGNOSES: 1. Altered mental status on presentation. 2. Acute on chronic hypoxemic and hypercarbic respiratory failure. 3. Pneumonia at the bases. 4. Obstructive sleep apnea. 5. Chronic obstructive pulmonary disease exacerbation. 6. Pulmonary edema. 7. Type 2 diabetes. 8. The patient is basically bed bound. PROCEDURES PERFORMED: 1. Chest x-ray dated 05/26/2019. Impression: Nonspecific findings. 2. Echocardiogram dated 05/27/2019, ejection fraction 50 to 55 percent. 3. Chest x-ray dated 05/27/2019. Impression: Pulmonary edema and bibasilar atelectasis versus pneumonia. 4. Chest x-ray dated 05/30/2019. Impression: Interval improvement. HOSPITAL COURSE: A 69-year-old, male with a past medical history of COPD, morbid obesity, obesity hypoventilation syndrome, atrial fibrillation, presented to the emergency department via EMS from [facility]. The intermediate stated that the patient was found in respiratory distress, having a saturation in the 50s on 5 L nasal cannula. He was placed on a non-rebreather and saturation increased to 96% on the route to the hospital. On arrival to the emergency room, he was tachycardic, respiration ranging from 20 to 26. He was placed on the BiPAP. Saturation stayed 90 to 100 percent with respiration in the 18 to 20 range. He denied any fever or chills, any cough or chest pain. The patient was a little bit confused at the beginning. We noticed that his pCO2 was elevated at 99, he was placed on the BiPAP machine. He was given some diuretics and he feels to be doing better. X-ray showed pneumonia and he was placed on antibiotics. He has been improving on a daily basis. He is still on oxygen but he has been hypoxemic chronically. I will complete the treatment for pneumonia for 14 days. He will go back to the intermediate today. Like I mentioned before he is basically bed bound, and it is more difficult for the patient to clear out this infection but he is completely awake, alert, and he is tolerating p.o. and basically close to his baseline. PHYSICAL EXAMINATION: Vital Signs: Temperature 98.1 degrees, pulse 73, respiratory rate 20, blood pressure 115/71, oxygen saturation 92 on 3 L of nasal cannula. HEENT: Head normocephalic. No trauma. PERRLA. I do not see JVD because of neck size. Central trachea. Chest: Decreased breath sounds globally. Some crepitus at the bases. Breath sounds are really distant. Extremities: No clubbing, no cyanosis. He has a right knee scar which is chronic. No signs of infection. Neurological: The patient is awake, alert. He is oriented x3. He is following commands. He is not able to ambulate. He is bed-bound. LABORATORY DATA: PH 7.41, pCO2 72, PO2 64. Sodium 139, potassium 4.9, chloride 92, bicarbonate 39, BUN 26, creatinine 0.7, glucose 188, calcium 9, phosphorus 3.5. DISCHARGE MEDICATIONS: DuoNeb 3 mL inhaler every 2 hours as needed; albuterol sulfate/Pro air HFA 1 puff inhaler q.a.m., Augmentin 875 mg p.o. q.12 hours, Biotene 1 tab p.o. daily, Dulcolax 1 suppository rectally as needed. Buspirone 5 mg p.o. twice a day as needed, FiberCon 625 mg p.o. daily, doxycycline 100 mg p.o. b.i.d., famotidine 20 mg p.o. b.i.d., folic acid 1 mg p.o. b.i.d., Lasix 20 mg p.o. every morning and 40 mg p.o. at bedtime, [place] 7.5 q.6 hours as needed, Lantus 15 units subcu daily, hypertropia/albuterol sulfate 3 mL inhaler t.i.d. Icar C 1 tab p.o. b.i.d., Culturelle 1 each p.o. b.i.d., levothyroxine 25 mcg p.o. q.a.m., lisinopril 5 mg p.o. daily, melatonin 1 capsule p.o. at bedtime, Medrol Dosepak as directed. Thera M Plus 1 tablet p.o. b.i.d., MiraLAX 17 g p.o. b.i.d. that is to be stopped if this patient is having diarrhea or more than 3 bowel movements per day. Potassium chloride ER 10 mEq p.o. t.i.d., Xarelto 20 mg p.o. daily, ropinirole 2 mg p.o. at bedtime, Carafate 1 g p.o. q.6 hours, tamsulosin 0.4 mg p.o. at bedtime, Spiriva 1 puff inhaler daily, and trazodone 50 mg p.o. at bedtime. TIME SPENT: Time discharging this patient 40 minutes. cc: Win Tellez MD
[2019-06-03 17:31] VITALS: BP 137/81
== END 2019-06-03 17:43 | DRG 871 ==
LOC: SUPCPDRO → ED 09:25 → SUATTDRO 14:09 → ICU 14:09 → 3N 05-27 15:45
PROVIDERS: ATTEND Internal Medicine